=== PATIENT | female | born 1970 | race Caucasian/White ===

== ENCOUNTER 2024-03-01 05:21 | Observation (INO) ==
--- NOTE | 2024-01-28 11:17 | PAT Medication Instructions ---
Medication Instructions Date of Service January 28, 2024 Home Medications albuterol sulfate 90 mcg/actuation aerosol inhaler 1 puff inhalation Q6H PRN Shortness Of Breath hsaxfvn-obylacbgtiehw-fmsudeeo 250 mg-250 mg-65 mg tablet (Excedrin Migraine) 2 tab PO BID cetirizine 10 mg tablet (Zyrtec) 20 mg PO HS famotidine 20 mg tablet (Pepcid) 40 mg PO QPM bupropion HCl 150 mg tablet,12 hr sustained-release (Wellbutrin SR) 150 mg PO QAM fluticasone propionate 115 mcg-salmeterol 21 mcg/actuation HFA inhaler (Advair HFA) 1 puff inhalation Q12H PRN allergies allopurinol 300 mg tablet 300 mg PO QAM amlodipine 10 mg tablet 10 mg PO QAM guselkumab 100 mg/mL subcutaneous syringe (Tremfya) 100 mg subcut Q2M hydrochlorothiazide 25 mg tablet 25 mg PO QAM metformin 500 mg tablet 500 mg PO BID MEDICATION INSTRUCTIONS: Continue as directed fluticasone propionate 115 mcg-salmeterol 21 mcg/actuation HFA inhaler (Advair HFA) 1 puff inhalation Q12H PRN allergies albuterol sulfate 90 mcg/actuation aerosol inhaler 1 puff inhalation Q6H PRN Shortness Of Breath (use if needed; BRING TO HOSPITAL DAY OF SURGERY) ASK your surgeon for instructions apzoghp-taggypdgxticu-okuezfjq 250 mg-250 mg-65 mg tablet (Excedrin Migraine) 2 tab PO BID DO NOT take the morning of surgery metformin 500 mg tablet 500 mg PO BID hydrochlorothiazide 25 mg tablet 25 mg PO QAM Take morning of surgery With a small sip of water, OTHERWISE NOTHING TO EAT OR DRINK AFTER MIDNIGHT: allopurinol 300 mg tablet 300 mg PO QAM amlodipine 10 mg tablet 10 mg PO QAM bupropion HCl 150 mg tablet,12 hr sustained-release (Wellbutrin SR) 150 mg PO QAM Take evening before surgery cetirizine 10 mg tablet (Zyrtec) 20 mg PO HS famotidine 20 mg tablet (Pepcid) 40 mg PO QPM metformin 500 mg tablet 500 mg PO BID Other Notes CHECK WITH PRESCRIBER FOR INSTRUCTIONS: guselkumab 100 mg/mL subcutaneous syringe (Tremfya) 100 mg subcut Q2M If you have any questions please call us at [phone] or [phone] or [phone] or [phone]
--- NOTE | 2024-02-11 11:44 | Anesthesiology Consultation ---
Date of Service February 11, 2024 Assessment & Plan (1) Encounter for pre-operative examination: - check BSG am DOS. - Case discussed with Dr. Moore who advised malignant hyperthermia precautions will be needed for surgery. Surgeon's office and OR notified. Case discussed in detail with Dr. Curry who advised nothing additional is needed prior to surgery. - Outpatient joint assessment: Patient is currently scheduled for inpatient pathway. If re-evaluated and patient/surgeon requests outpatient pathway, patient is not candidate for outpatient joint program from anesthesia standpoint. Chart Review Chart Review: Acceptable Risk for Surgery and Patient seen in Pre Admission Testing Teaching & Discussion Pre-Anesthesia Teaching/Discussion Notes: Instructed NPO after midnight before surgery, except medications with 15 cc of water. Medication instructions provided according to the PAT guidelines. History Surgery Operation Date: 03/01/24 07:00 Proposed Procedures p Left Total Knee Arthroplasty - Antony Walton MD Height/Weight Height: 5 ft 6 in Weight: 177.4 kg Allergies Allergy/AdvReac Type Severity Reaction Status Date / Time Quinolones Allergy Severe angioedema Verified 02/11/24 15:28 Sulfa (Sulfonamide Allergy Severe anaphylaxis Verified 02/11/24 15:29 Antibiotics) ceftriaxone Allergy Intermediate hives Verified 02/11/24 15:29 cephalexin Allergy Intermediate Hives Verified 02/11/24 12:13 doxycycline Allergy Intermediate GI issues Verified 01/27/24 11:45 erythromycin base Allergy Intermediate GI issues Verified 01/27/24 11:45 - severe diarrhea moxifloxacin Allergy Intermediate Hives Verified 02/11/24 12:13 Penicillins Allergy Intermediate anaphylaxsis Verified 01/27/24 11:45 as infant; adult - rash Cephalosporins Allergy Mild Hives Verified 01/27/24 11:45 latex Allergy Mild Anaphylaxis Verified 01/27/24 11:45 metronidazole [From Flagyl] Allergy Mild Hives Verified 01/27/24 11:45 phenobarbital Allergy Unknown paradoxical Verified 01/27/24 11:45 effect as child montelukast AdvReac Intermediate Cough Verified 02/11/24 12:13 Medications Home Medications Medication Instructions Recorded Confirmed Last Taken albuterol sulfate 90 mcg/actuation 1 puff inhalation Q6H PRN 01/05/19 01/27/24 08/20/19 12:00 aerosol inhaler Shortness Of Breath vjgybjy-lalxdlcgymsoy-ofrabwou 250 2 tab PO BID 01/05/19 01/27/24 08/21/19 09:00 mg-250 mg-65 mg tablet (Excedrin Migraine) cetirizine 10 mg tablet (Zyrtec) 20 mg PO HS 01/05/19 01/27/24 08/21/19 09:00 famotidine 20 mg tablet (Pepcid) 40 mg PO QPM 01/05/19 01/27/24 08/21/19 09:00 fluticasone propionate 115 1 puff inhalation Q12H PRN 08/12/19 01/27/24 08/21/19 09:00 mcg-salmeterol 21 mcg/actuation allergies HFA inhaler (Advair HFA) allopurinol 300 mg tablet 300 mg PO QAM 01/27/24 01/27/24 Unknown amlodipine 10 mg tablet 10 mg PO QAM 01/27/24 01/27/24 Unknown guselkumab 100 mg/mL subcutaneous 100 mg subcut Q2M 01/27/24 01/27/24 Unknown syringe (Tremfya) hydrochlorothiazide 25 mg tablet 25 mg PO QAM 01/27/24 01/27/24 Unknown metformin 500 mg tablet 500 mg PO BID 01/27/24 01/27/24 Unknown Wheeled Walker #1 ea 02/11/24 02/11/24 Unknown bupropion HCl 150 mg 24 hr tablet, mg PO 02/11/24 Unknown extended release hydroxyzine HCl 25 mg tablet mg PRN Anxiety 02/11/24 Unknown Additional Notes: Recently prescribed Ozempic, not yet started per patient. She was instructed and it was written on provided medication instructions that Ozempic cannot be used 7 days before surgery. She verbalized understanding and agreement, denied questions or concerns. Hydroxyzine and tramadol prn can be continued as needed. She verbalized understanding and denied additional medications, questions or concerns. Past Medical History Medical History (Updated 02/11/24 @ 15:30 by Gail Willis PA-C) Aortic stenosis Noted per remote records, most recent Echo 06/2020 indicates "aortic stenosis is absent"- CAL 1.8cm2 Asthma controlled, stable per pt; last rescue inhaler use several months ago Depression Diabetes mellitus, type 2 NIDDM DJD (degenerative joint disease), lumbar Elevated uric acid in blood Emphysema lung per [facility] EMR History of kidney stones Hypertension controlled, stable per pt IBS (irritable bowel syndrome) Malignant hyperthermia paternal aunt, pt denies testing Migraines Psoriasis Pulmonary hypertension "Mild", follows with [facility] Pul Echo 06/2020: "Normal pulmonary pressures are suggested by 2-D echo findings" Radiculopathy Sciatica 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 Exercise / Class Metabolic Activity II 4-5 Yardwork/Stairs/Walk up hill (occasional shortness of breath in cold or hot weather; denies chest discomfort with 1 FOS) Past Family History Family History Aunt Family history of malignant hyperthermia pt is not 100% sure about this. states her paternal aunt on OR table because of anesthesia complictions. said "rings a call." - pt denies personal history of anesthesia complications Father Family history of diabetes mellitus Aunt Family history of diabetes mellitus Grandmother (Paternal) Family history of diabetes mellitus Grandfather (Maternal) History of rectal cancer Father History of colon polyps Past Surgical History Surgical History History of History of colonoscopy History of cystoscopy x2 History of endometrial ablation History of selective injection of anesthetic agent around lumbar nerve root LESI Hx of arthroscopy of left knee Hx of endoscopic sinus surgery Hx of esophagogastroduodenoscopy Hx of tonsillectomy Hx of tubal ligation Past Anesthesia History No Hx of Anesthesia Complications and Other (paternal aunt with malignant hyperthermia) History of PONV No Hx of PONV and No Hx of Motion Sickness Social History Smoking Status: Current every day smoker (-advised) tobacco type: cigarettes Smoking cigarettes per day: 1/2 PPD Do You Dip or Chew Tobacco: No Hx Alcohol Use: Yes Alcohol type: beer and wine alcohol intake frequency: holidays/special occasions only Hx Substance Use: No substance use type: does not use Review of Systems Patient denies chest pain, fever, chills, cough, wheezing, or palpitations. Physical Exam Vital Signs Vitals BP 136/80 P 82 TEMP 98.2 SP02 96% on RA RESP 17 Physical Patient resting comfortably in chair in no acute distress, alert and oriented, responding appropriately throughout visit Full cervical extension range of motion without pain TMD <3 finger breadths Mallampati Score 3 Dentition: one crown, denies chipped or loose teeth, caps, implants or bridges Lungs: normal respiratory effort. Good air movement, clear throughout to auscultation, no adventitious breath sounds Cardiac: regular rate and rhythm, no murmurs noted Carotid arteries: negative bruit bilat Lab Results Anesthesia Preop Results Results Anesthesia Widget: WBC 11.36 K/ul (4.8-10.8) H 02/11/24 Hgb 13.6 g/dl (12.0-16.0) 02/11/24 Hct 41.6 % (37.0-47.0) 02/11/24 Plt 400 K/uL (130-400) 02/11/24 Na 142 mmol/L (136-145) 02/11/24 K 3.9 mmol/L (3.5-5.1) 02/11/24 Cl 102 mmol/L (98-107) 02/11/24 CO2 31 mmol/L (21-32) 02/11/24 BUN 15 mg/dl (6-23) 02/11/24 Creat 0.95 mg/dl (0.6-1.2) 02/11/24 Glucose Level 136 mg/dl (70-99(Fasting)) H 02/11/24 PT 10.2 Seconds (9.0-12.0) 02/11/24 PTT 28 Seconds (21-31) 02/11/24 INR 0.9 (0.9-1.1) 02/11/24 HA1c 7.0 % (4.5-5.6) H 02/11/24 Blood Type A Positive 02/11/24 Antibody Screen NEGATIVE 02/11/24 Testing Laboratory Results Surgeon's office notified of elevated A1c. Electrocardiogram Date: 02/11/24 NSR, rate 75 bpm Chest X-Ray Date: 02/11/24 No acute cardiopulmonary findings. Echocardiogram Date: 07/12/20 EF 55-59% Normal LV wall motion Mild cLVH Limited examination quality Tricuspid regurgitation spectral Doppler examination is inadequate to calculate the RVSP, normal pulmonary pressures are suggested by 2D echo findings Grade I diastolic dysfunction
[~2024-03-01 05:21] MED LIST: ALLERGY Noted to ORDERED Medication SCH
[2024-03-01] MEDS: LR 500ML BOLUS, THEN 15ML/HR IV SCH (05:50)
[2024-03-01] MEDS: ACETAMINOPHEN 500 MG TAB PO SCH ×2 (06:05→13:17)
[2024-03-01] MEDS: LR 60ML/HR IV SCH (06:06)
[2024-03-01] MEDS: Scopolamine 1 MG TDSY TD SCH (06:06)
[2024-03-01] MEDS: METOCLOPRAMIDE HCL 10 MG TABLET PO SCH (06:06)
[2024-03-01] MEDS: FAMOTIDINE 20 MG TAB PO SCH (06:06)
[2024-03-01] MEDS: CeleBREX 200 MG CAP PO SCH (06:06)
[2024-03-01] MEDS ORDERED: BUPIVACAINE 0.5 % 5 MG/1 ML PF 10ML VIAL ONE (06:14)
[2024-03-01] MEDS ORDERED: ROPIVACAINE 0.5% 5 MG/ML 30 ML VIAL ONE (06:14)
[2024-03-01] MEDS ORDERED: EPINEPHrine INJ 1 MG/ML AMP ONE (06:14)
[2024-03-01] MEDS ORDERED: MIDAZOLAM HCL 1 MG/ML 2ML VIAL ONE (06:41)
[2024-03-01] MEDS ORDERED: Nursing to Pharmacy Communication SCH (06:45)
[2024-03-01] MEDS ORDERED: PROPOFOL IV EMULSION 10 MG/ML 20 ML VIAL IV ONE ×7 (06:46→09:08)
--- NOTE | 2024-03-01 06:53 | History & Physical Bridge Note ---
Date of Service March 01, 2024 History & Physical Bridge Note I have examined the patient, reviewed the History & Physical and in the interval since the performance of the History & Physical I have noted the following changes of clinical significance: no changes noted
[2024-03-01] MEDS: ceFAZolin 3000MG 3,000 MG/72.5 ML BAG IV SCH (07:04)
[2024-03-01] MEDS: ORTHO JOINT ANESTHETIC ONE (08:02)
[2024-03-01] MEDS: ROPIV 0.5% 246mg, Ketorolac 30mg, EPINEPHrine 0.5mg in NSS INFIL SCH (08:02)
[2024-03-01] MEDS ORDERED: PROMETHAZINE HCL 6.25 MG in SODIUM CHLORIDE 0.9% 50 ML IV PRN (08:04)
[2024-03-01] MEDS ORDERED: ONDANSETRON INJ 2 MG/ML 2 ML VIAL IV PRN ×2 (08:04→12:11)
[2024-03-01] MEDS ORDERED: ePHEDrine sulfate 50 MG/ML AMP IV PRN (08:04)
[2024-03-01] MEDS ORDERED: FLUMAZENIL 0.1 MG/1 ML 10 ML VIAL IV PRN (08:04)
[2024-03-01] MEDS ORDERED: NALOXONE HCL 0.4 MG/1 ML VIAL/CARP IV PRN ×2 (08:04→12:11)
[2024-03-01] MEDS ORDERED: ATROPINE SULFATE 0.1 MG/ML 10ML SYR IV PRN (08:04)
[2024-03-01] MEDS ORDERED: fentaNYL citrate PF 100 MCG/2 ML VIAL IV PRN (08:04)
[2024-03-01] MEDS: TRANEXAMIC ACID 1,000 MG **IV Intra-op IV SCH (08:24)
[2024-03-01] MEDS ORDERED: FLUTICASONE/VILANTEROL 200/25MCG 14 PUFFS/INHALER INH PRN (09:00)
[2024-03-01] MEDS: VANCOMYCIN HCL 1000MG/20ML VIAL ONE (09:05)
[2024-03-01] MEDS ORDERED: fentaNYL citrate PF 100 MCG/2 ML VIAL ONE (09:30)
--- OUTSIDE RECORDS SUMMARY | 2024-03-01 09:35 | External Medical Summary | Summary of Care ---
Author Name Unknown Organization [facility] Address [address] [place] [address] Phone [phone] Care Team Providers Care Microbiology Soil Scientist Name Role Phone Tho Hurley MD Primary Care Provider [phone] Reason for Visit * Reason Comments Lumbar Pain W/radiation Encounter Details Date Type Department Care Team (Late st Contact Info) Description 02/18/2024 9:00 AM EDT Telemedicine Interventional Pain Center, [facility] [address] [place] [address] Mrianda De La O PA-C [address] [place] [address] Lumbar radicular pain*; Chronic bilateral low back pain with bilateral sciatica Allergies Active Allergy Reactions Criticality Noted Date Comments Moxifloxacin Hcl In Nacl Rash 06/09/2012 Rash, Hives, itching localized to chest Cephalosporins Hypertension 11/01/2002 Hives just to keflex; has not had reaction to other cephalosporins Clindamycin Hives 09/04/2015 Doxycycline Abdominal pain 11/01/2002 Severe GI upset Erythromycin Diarrhea Metronidazole Other (Please comment) 09/04/2015 Sore throat, stiff neck, and headache Cephalexin Hives 12/25/2014 Age 18 Latex 03/07/2004 Anaphylactic to aerosolized latex gloves; also contact rash to latex Montelukast Cough 12/02/2022 Penicillins 11/01/2002 Had PCN allergy change done 03/07/2015--tolerated Amoxil 250mg in office -- 2 hours later reacted with rash which covered her-- Phenobarbital 11/01/2002 Hyperactive Quinolones Edema Other High 10/30/2014 Levaquin or Cipro - Swelling of hands, feet, face; heart pounding, tingling of face and extremities Ceftriaxone Hives 02/27/2021 Sulfa Antibiotics Abdominal pain,Hives 06/09/2012 Anaphylaxis; chest tightness documented as of this encounter (statuses as of 02/18/2024) Medications Medication Sig Dispensed Refills Start Date End Date Status Famotidine 20 MG Oral Tablet Take 2 Tablets by mouth in the morning. 0 Active ProAir HFA 108 (90 Base) MCG/ACT Inhalation Aerosol Solution Inhale 2 Puffs by mouth every 4 hours as needed for Wheezing. 36 g 2 09/25/2020 Active Excedrin Extra Strength 250-250-65 MG Oral Tablet (Aspirin-Acetaminophe n-Caffeine) Take 1 Tablet by mouth every 6 hours as needed for Pain, Moderate or Headache. 0 Active CPAP every night at bedtime . 0 Active Fluticasone-Salmetero l 250-50 MCG/ACT Inhalation Aerosol Powder Breath Activated (Advair Diskus)Indications:Mo derate persistent asthma with acute exacerbation Inhale 1 Puff by mouth in the morning and 1 Puff before bedtime. 60 Each 5 12/16/2022 Active MDdatacor Verio In Vitro Strip (Glucose Blood)Indications:Typ e 2 diabetes mellitus with hemoglobin A1c goal of less than 8.0% (HCC) Use up to 1 times a day E11.9. type 2 Diabetes Mellitus 100 Strip 11 01/23/2023 Active OneTouch Verio w/Device KitIndications:Type 2 diabetes mellitus with hemoglobin A1c goal of less than 8.0% (HCC) Use up to 1 times a day E11.9. type 2 Diabetes Mellitus 1 Kit 0 01/23/2023 Active amLODIPine Besylate 10 MG Oral Tablet (Norvasc)Indications: HTN, goal below 140/90 Take 1 Tablet by mouth in the morning. 90 Tablet 3 02/10/2023 Active hydroCHLOROthiazide 25 MG Oral Tablet (Hydrodiuril)Indicati ons:Hypertension goal BP (blood pressure) < 140/90 TAKE 1 TABLET BY MOUTH ONCE DAILY IN THE MORNING 90 Tablet 2 05/19/2023 Active traMADol HCl 50 MG Oral Tablet (Ultram) Take 1 Tablet by mouth every 6 hours as needed for Pain, Severe. 20 Tablet 0 08/07/2023 Active hydrOXYzine HCl 25 MG Oral TabletIndications:Anx iety Take 1 Tablet by mouth every 6 hours as needed for Anxiety. 40 Tablet 2 09/23/2023 Active Cetirizine HCl 10 MG Oral Capsule Take 2 Capsules by mouth every evening. 0 Active Allopurinol 300 MG Oral Tablet (Zyloprim)Indications :Hyperuricemia TAKE 1 TABLET BY MOUTH IN THE MORNING 30 Tablet 5 12/07/2023 Active buPROPion HCl ER (SR) 150 MG Oral Tablet Extended Release 12 Hour (Wellbutrin SR)Indications:Anxiet y and depression Take 1 Tablet by mouth in the morning and 1 Tablet before bedtime. 60 Tablet 5 01/04/2024 Active Ozempic (0.25 or 0.5 MG/DOSE) 2 MG/3ML Solution Pen-injector (Semaglutide(0.25 or 0.5MG/DOS))Indication s:Type 2 diabetes mellitus with hemoglobin A1c goal of less than 7.0% (HCC) Inject 0.25mg under the skin once weekly for 4 weeks then increase to 0.5mg under the skin once weekly thereafter 3 mL 1 01/06/2024 Active methylPREDNISolone 4 MG Oral Tablet Therapy Pack (Medrol Dosepack)Indications: Primary osteoarthritis of both knees follow package directions 21 Tablet 0 01/12/2024 Active Tremfya 100 MG/ML Subcutaneous Solution Prefilled Syringe (Guselkumab) Inject 100 mg under the skin every 8 weeks. 1 mL 2 01/18/2024 Active metFORMIN HCl 500 MG Oral Tablet (Glucophage)Indicatio ns:Type 2 diabetes mellitus with hemoglobin A1c goal of less than 8.0% (HCC) TAKE 1 TABLET BY MOUTH TWICE DAILY WITH MORNING MEAL AND WITH EVENING MEALS 180 Tablet 3 01/23/2024 Active documented as of this encounter (statuses as of 02/18/2024) Active Problems Problem Noted Date Diagnosed Date Type 2 diabetes mellitus with hyperglycemia 08/23 Diabetes mellitus without complication 3 COPD, group C, by GOLD 2017 classification 03/02 Overview: Per COPD GOLD Classification Morbid obesity due to excess calories 11/26/2021 Pulmonary nodules 12/11/2020 Body mass index (BMI) of 60.0 to 69.9 in adult 1 Overview: Per Obesity protocol - Per Obesity protocol Ground glass opacity present on imaging of lung 05/30/2019 Centrilobular emphysema 04/04/2019 VAL on CPAP 04/04/2019 Tobacco use 04/04/2019 History of abnormal cervical Pap smear 8 Nonspecific urethritis 02/16/2018 Plaque psoriasis 11/20/2015 Hamartoma 04/26/2015 Splenic mass 03/06/2015 Multiple drug allergies 12/25/2014 Latex allergy 12/25/2014 Allergic rhinitis 12/25/2014 Vitamin D deficiency 12/11/2014 Migraine 06/09/2012 Sciatica, right side 10/17/2009 Osteoarthritis 12/24/1998 documented as of this encounter (statuses as of 02/18/2024) Resolved Problems Problem Noted Date Diagnosed Date Resolved Date Acute bronchitis, complicated 11/25/2022 09/01/2023 Acute bronchitis due to Rhinovirus 11/25/2022 09/01/2023 Lactic acidosis 11/25/2022 09/01/2023 Leukocytosis 11/24/2022 09/01/2023 Hyperglycemia 11/24/2022 09/01/2023 Positive D dimer 11/24/2022 09/01/2023 COPD, group A, by GOLD 2017 classification 08/05/2021 03/05/2023 Overview: Per COPD GOLD Classification COPD, group D, by GOLD 2017 classification 10/03/2019 05/02/2021 Overview: Per COPD GOLD Classification Body mass index (BMI) greate r than or equal to 70 in adult 08/01/2019 09/07/2019 Overview: Per Obesity protocol COPD, group A, by GOLD 2017 classification 05/30/2019 10/07/2019 Overview: Per COPD GOLD Classification Pulmonary hypertension 04/04/201903/27 Occupational exposure in workplace 04/04/2019 04/18/2021 Morbid obesity 04/04/2019 05/04/2019 Pulmonary nodule 04/04/2019 09/01/2023 Acute exacerbation of modera te persistent extrinsic asthma 10/11/2018 11/26/2022 Prediabetes 08/30/2018 07/09/2023 Overview: Per Prediabetes protocol #1 Mild intermittent asthma with exacerbation 08/19/2018 04/14/2019 Quit smoking 08/19/2018 04/14/2019 Advanced directives, counseling/discussion 04/16/2018 10/07/2019 Encounter for gynecological examination without abnormal finding 02/16/2018 10/07/2019 Screening for venereal disease 02/16/2018 10/07/2019 Morbid obesity with BMI of 60.0-69.9, adult 02/16/2018 08/05/2019 Overview: Per Obesity protocol Body mass index (BMI) of 60. 0 to 69.9 in adult 08/24/2017 03/05/2018 Overview: Per Obesity protocol #1 Smoker 05/22/2017 08/19/2018 Psoriasis of scalp 01/04/2015 5 History of penicillin allergy 12/25/2014 10/07/2019 Asthma, mild persistent 10/30/201407/25 documented as of this encounter (statuses as of 02/18/2024) Immunizations Name Administration Dates Next Due COVID-19 mRNA, LNP-s, No Pre serve, 2-Dose Series (Moderna) 01/16/2021,12/19/2020 COVID-19, mRNA, LNP-s, PF, B ooster, 100mcg/0.5mg (Moderna) 08/06/2022,04/10/2022,10/03/2021 Pneumococcal Conjugate Vacc, 13 Valent (Prevnar) 12/23/2018 Pneumococcal Polysaccharide PPV23 (Pneumovax) 11/23/2010 Seasonal Influenza, PF, 6 M & above, IM , (FluLaval or Fluzone) 08/05/2023,08/06/2022,07/25/2021,09/25,10/13/2019,12/23/2018 Seasonal Influenza, Quadriva lent, No Preserve, Mdck 08/03/2017 Seasonal Influenza, Split, I IV3, With Preserve, Inj 08/08/2015,10/30/2014 TDAP (age 10 and older)(Boostrix) 10/17/2015 documented as of this encounter Social History Tobacco Use Types Packs/Day Years Used Date Smoking Tobacco: Every Day Cigarettes 0.5 39 Smokeless Tobacco: Never Alcohol Use Standard Drinks/Week Comments Not Currently 0 (1 standard drink = 0.6 oz pur e alcohol) Rare PHQ-2 Answer Date Recorded PHQ-2 Score 1 06/23/2019 Hunger Vital Sign Answer Date Recorded Within the past 12 months, y ou worried that your food would run out before you got the money to buy more. Never true 06/15/20 23 Within the past 12 months, t he food you bought just didn't last and you didn't have money to get more. Never true 06/15/2023 Sex and Gender Information Value Date Recorded Sex Assigned at Female 03/10/2019 7:28 PM EDT Gender Identity Female 03/10/2019 7:28 PM EDT Sexual Orientation Straight 07/22/2021 1: 17 PM EDT Job Start Date Occupation Industry Not on file Not on file Not on file documented as of this encounter Functional Status Functional Status Response Date of Assess ment Are you deaf or do you have serious difficulty h earing? No 11/24/2022 Are you blind or do you have serious difficulty seeing, even when wearing glasses? No 11/24/2022 Do you have serious difficul ty walking or climbing stairs? (5 years old or older) Yes 11/24/2022 Do you have difficulty dress ing or bathing? (5 years old or older) No 11/24/2022 Because of a physical, menta l, or emotional condition, do you have difficulty doing errands alone such as visiting a doctor s office or shopping? (15 years old or older) No 11/24/19 Cognitive Status Response Date of Assessm ent Because of a physical, menta l, or emotional condition, do you have serious difficulty concentrating, remembering, or making decisions? (5 years old or older) No 11/24/2022 documented as of this encounter Progress Notes * Miranda De La O PA-C - 02/18/2024 9:03 AM EDT Name: Palak Horan Date: 02/18/2024 Patient location: HOME. I was in a hospital or clinic location. After connecting through televCytoVivao,patient was verified with two unique identifiers. Patient (or authorized legal business office representative) was then informed that this was a Telemedicine visit and being conducted confidentially over secure lines. Methods to assure confidentiality were taken. Patient acknowledged consent and understanding of pr ivacy and security of the Telemedicine visit. The patient agreed to participate. Video start: 858 Video end: 913 HPI: Palak Horan is a 53 year old female known to the Pain Management clinic presents for followup after left interlaminar LOAN L5/S1 on 12/28/23. Admits mild pain reduction lasting less than on week. Increased R buttock, hip spasms for few days after procedure. No change in LE numbness or weakness. Pain has returned to baseline. Locates pain low back that radiates to lateral hips and thigh. Associated paresthesia B LE, lateralcalf, foot, some into R great toe -- baseline. Baseline LE weakness. Denies bowel/bladder dysfunction. Aggravated by prolonged standing and sitting. Alleviated temporarily with changing position and stretching. Using tramadol, excedrin, motrin for pain relief. PRN excedrin for migraine. Past medications used for pain: gabapentin, oral steroid, cymbalta (D/C due to SE brain zaps,) mobic. Hx of injections with Dr. Aleman, noting subsequent injections were not as helpful. Established with weight management, has lost more than pounds in the past year. +++ extensive allergy list. + DM, most recent HbA1c 6.29 Dec 2023 Of note, upcoming LEFT TKA with Dr. Walton, planning for R TKA later in the year. History: Past Medical History: Diagnosis Date Allergic rhinitis Asthma, mild persistent 10/30/2014 COPD (chronic obstructive pulmonary disease) ([facility]) History of penicillin allergy 12/25/2014 Kidney stone last one in 2020? 5-6 of them. Knee pain, bilateral Latex allergy 12/25/2014 Migraine Morbid obesity (HCC) Pulmonary hypertension (HCC) Sleep apnea CPAP Spinal stenosis Status asthmaticus Tobacco abuse Vitamin D deficiency 12/11/2014 Past Surgical History: Procedure Laterality Date ABLATION UTERINE FIBROIDS, US GUIDE, RADIOFREQUENCY DELIVERY Delivery Only INJECT DX/THER SUBSTANCE INTERLAMINAR LUMBAR/SACRAL W IMAGE GUIDE 12/28/2023 INJECTION SPINE LUMBAR OR SACRAL performed by Torey Berg DO at OR [facility] INTRANASAL BIOPSY 04/2010 Nasal polypectomy KNEE ARTHROSCOPY/ARTHROPLASTY Left LIGATE/CUT OVIDUCT(S) Tubal Ligation,Non Laparoscopic REMOVAL OF TONSILS, AGE 12+ 12/2011 Tonsils Removal,10+ Y/O SINUS SURGERY PROCEDURE NEC 04/2010 Sinus Surgery Proc Unlisted/ Dr. Huddleston Current Outpatient Medications Medication Sig Dispense Refill Famotidine 20 MG Oral Tablet Take 2 Tablets by mouth in the morning. ProAir HFA 108 (90 Base) MCG/ACT Inhalation Aerosol Solution Inhale 2 Puffs by mouth every 4 hours as needed for Wheezing. 36 g 2 Excedrin Extra Strength 250-250-65 MG Oral Tablet (Hlheoxz-Yolubrdyhozni-Zouvidss) Take 1 Tablet bymouth every 6 hours as needed for Pain, Moderate or Headache. CPAP every night at bedtime . Fluticasone-Salmeterol 250-50 MCG/ACT Inhalation Aerosol Powder Breath Activated (Advair Diskus) Inhale 1 Puff by mouth in the morning and 1 Puff before bedtime. 60 Each 5 OneTouch Verio In Vitro Strip (Glucose Blood) Use up to 1 times a day E11.9. type 2 Diabetes Mellitus 100 Strip 11 OneTouch Verio w/Device Kit Use up to 1 times a day E11.9. type 2 Diabetes Mellitus 1 Kit 0 amLODIPine Besylate 10 MG Oral Tablet (Norvasc) Take 1 Tablet by mouth in the morning. 90 Tablet 3 hydroCHLOROthiazide 25 MG Oral Tablet (Hydrodiuril) TAKE 1 TABLET BY MOUTH ONCE DAILY IN THE MORNING 90 Tablet 2 traMADol HCl 50 MG Oral Tablet (Ultram) Take 1 Tablet by mouth every 6 hours as needed for Pain, Severe. 20 Tablet 0 hydrOXYzine HCl 25 MG Oral Tablet Take 1 Tablet by mouth every 6 hours as needed for Anxiety. 40 Tablet 2 Cetirizine HCl 10 MG Oral Capsule Take 2 Capsules by mouth every evening. Allopurinol 300 MG Oral Tablet (Zyloprim) TAKE 1 TABLET BY MOUTH IN THE MORNING 30 Tablet 5 buPROPion HCl ER (SR) 150 MG Oral Tablet Extended Release 12 Hour (Wellbutrin SR) Take 1 Tablet by mouth in the morning and 1 Tablet before bedtime. 60 Tablet 5 Ozempic (0.25 or 0.5 MG/DOSE) 2 MG/3ML Solution Pen-injector (Semaglutide(0.25 or 0.5MG/DOS)) Inject 0.25mg under the skin once weekly for 4 weeks then increase to 0.5mg under the skin once weekly thereafter 3 mL 1 methylPREDNISolone 4 MG Oral Tablet Therapy Pack (Medrol Dosepack) follow package directions 21 Tablet 0 Tremfya 100 MG/ML Subcutaneous Solution Prefilled Syringe (Guselkumab) Inject 100 mg under the skinevery 8 weeks. 1 mL 2 metFORMIN HCl 500 MG Oral Tablet (Glucophage) TAKE 1 TABLET BY MOUTH TWICE DAILY WITH MORNING MEAL AND WITH EVENING MEALS 180 Tablet 3 No current facility-administered medications for this visit. Review of patient's allergies indicates: Allergen Reactions Quinolones Edema Other Levaquin or Cipro - Swelling of hands, feet, face; heart pounding, tingling of face and extremities Avelox [Moxifloxacin Hcl In Nacl] Rash Rash, Hives, itching localized to chest Cephalosporins Hypertension Hives just to keflex; has not had reaction to other cephalosporins Clindamycin Hives Doxycycline Abdominal pain Severe GI upset Erythromycin Diarrhea Flagyl [Metronidazole] Other (Please comment) Sore throat, stiff neck, and headache Keflex [Cephalexin] Hives Age 18 Latex Anaphylactic to aerosolized latex gloves; also contact rash to latex Montelukast Cough Penicillins Had PCN allergy change done 03/07/2015--tolerated Amoxil 250mg in office -- 2 hours later reacted with rash which covered her-- Phenobarbital Hyperactive Rocephin [Ceftriaxone] Hives Sulfa Antibiotics Abdominal pain and Hives Anaphylaxis; chest tightness PHYSICAL EXAM: There were no vitals taken for this visit. GENERAL: WD/WN female who is awake and alert. Does not appear to be in acute distress. MENTAL STATUS: Oriented x 3. Pleasant and cooperative with normal affect. ASSESSMENT: Lumbar radicular pain Chronic low back pain RECOMMENDATION: No lasting relief with lumbar LOAN. No change in LE weakness, paresthesia. Do not recommend repeat LOAN. Consider medication management, MTDM??? Should continue care with nutrition/reinaldo management. Declines returning to clinic at this time, has upcoming LEFT TKA with Dr. Walton - prefers to focus onthat recovery. Follow up as needed. Total video duration 15 minutes. Miranda De La O PA-C 02/18/2024 documented in this encounter Plan of Treatment Upcoming Encounters Date Type Department Care Team (Late st Contact Info) Description 02/24/2024 11:00 AM EDT Office Visit Gynecology and Obstetrics, [place] [address] [facility] [place] [address] [place], [address] [facility] [place] [address] 04/12/2024 2:00 PM EDT Office Visit Nutrition & Weight Management, [facility] [address] [place] [address] Cindy Lindsey PA-C [address] [place] [address] 07/04/2024 11:40 AM EDT Office Visit Family Practice [facility] [address] [place] [phone] Tho Hurley MD [address] [place] [address] 08/10/2024 7:40 AM EDT Office Visit Dermatology [address] [phone] Miah Maceil PA-C [address] [place] [address] 11/04/2024 10:00 AM EST Telemedicine Sleep Disorders Ctr [facility] [address] [place] [phone] Estefania Nix, [address] [place] [address] Scheduled Procedures Name Priority Associated Diagnoses Date/Ti me COLONOSCOPY FLEXIBLE PROXIMA L DIAGNOSTIC Recall Special screening for malignant neoplasm Health Maintenance Due Date Last Done Comments Hepatitis B (1 of 3 - 19+ 3-dose series) 1987 Cologuard 2013 Fecal Occult Blood Test 2013 Sigmoidoscopy 2013 Zoster Vaccines (1 of 2) 2018 Depression Screening 06/23/2020 06/23/2019 DISCUSS TOBACCO CESSATION (REFER TO SMARTSET #3291) 05/02/2022 05/02/2021 COVID-19 Vaccine ( season) 2023 08/06/2022, 04/10/2022, 10/03/2021, Additional history exists Mammogram 03/23/2024 03/23/2023, 11/2022, 03/20/2022, Additional history exists HbA1c 07/04/2024 01/04/2024, 07/24, 01/02/2023, Additional history exists Albumin/Creatinine Ratio 09/23/2024 09/23/2023 Diabetic Foot Exam 01/04/2025 01/04/2024 GFR 01/04/2025 01/04/2024, 07/24, 01/02/2023, Additional history exists O2 ASSESSMENT COMPLETED IN PAST YEAR FOR COPD 01/04/2025 01/04/2024 Diabetic Eye Exam 01/15/2025 01/15/2024 DTaP,Tdap,and Td Vaccines (2 - Td or Tdap) 10/17/2025 10/17/2015 Pap Smear 01/01/2027 01/01/2024, 01/22, 01/10/2014 Cervical Cancer Screening 01/01/2029 HPV/Co-Test 01/01/2029 01/01/2024 Lipid Panel 01/04/2029 01/04/2024, 12/24, 08/19/2018, Additional history exists Colonoscopy 08/22/2029 08/22/2019 Colorectal Cancer Screening 08/22/2029 Pneumococcal Vaccine: Pediatrics (0 to 5 Years) and At-Risk Patients (6 to 64 Years) (3 of 3 - PPSV23 or PCV20) 2033 12/23/2018, 11/23/2010 Alpha-1 Antitrypsin Completed 05/13/2021 Influenza Vaccine (FLU shot) Completed , 08/06/2022, 08/06/2022, Additional history exists GARDASIL-HPV IMMUNIZATION SERIES Aged Out No longer eligible based on patient's age to complete this topic MENINGOCOCCAL (MENACTRA/MENVEO) Aged Out No longer eligible based on patient's age to complete this topic documented as of this encounter Medical Devices Not on filedocumented as of this encounter Visit Diagnoses Diagnosis Lumbar radicular pain- Primary Thoracic or lumbosacral neuritis or radiculitis, unspecified Chronic bilateral low back pain with bilateral sciatica documented in this encounter Advance Directives Latest Code Status on File Code Status Date Activated Date Inactivated Comments Full Code 11/24/2022 10:23 PM 11/26/2022 6:37 PM This o rder reflects the patients wishes and were consensually agreed upon. Question Answer Comments Discussion of Advance Directives occurred with: Patient Does the patient have a Living Will? No Does the patient have Health Care Power of Paint Tinter? No Care Teams Microbiology Soil Scientist Relationship Specialty Start Date End Date Tho Hurley MD [address] [place] [phone] PCP - General Family Medicine 10/10/14 documented as of this encounter
--- OUTSIDE RECORDS SUMMARY | 2024-03-01 09:35 | External Medical Summary | Summary of Care ---
Author Name Unknown Organization [facility] [address] [facility] [address] Phone [phone] Care Team Providers Care Printed Forms Proofreader Name Role Phone Tho Hurley MD Primary Care Provider [phone] Reason for Visit * Reason Onset Date Comments Advice 02/25/2024 Encounter Details Date Type Department Care Team (Late st Contact Info) Description 02/25/2024 Telephone Gynecology and Obstetrics, [place] [address] [facility] [place] [phone] Brain H[place] DO [address] [place] [address] Advice Allergies Active Allergy Reactions Criticality Noted Date [...] as of this encounter (statuses as of 02/25/2024) Medications Medication Sig Dispensed Refills Start Date [...] before bedtime. 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 Never true 06/15/20 Within the past 12 months, t he [...] No 11/24/2022 documented as of this encounter Miscellaneous Notes * Telephone Encounter - Brain Harg[place] DO - 02/25/2024 2:34 PM EDT Call Palak that the Endocervical curetting showed no cancer or precancer. documented in this encounter Plan of Treatment Upcoming Encounters Date Type Department Care Team ([facility] st Contact Info) Description 04/12/2024 2:00 PM EDT Office Visit Nutrition & Weight Management, [facility] [address] [place] [phone] iCndy Lindsey PA-C [address] [place] [address] 07/04/2024 11:40 AM EDT Office Visit Family Practice [facility] [address] [place] [phone] Tho Hurley MD [address] [place] [address] 08/10/2024 7:40 AM EDT Office Visit Dermatology [address] [phone] Miah Maciel PA-C [address] [place] [address] 11/04/2024 10:00 AM EST Telemedicine Sleep Disorders Ctr [facility] [address] [place] [phone] Estefania Nix DO [address] [place] [address] Scheduled Procedures Name Priority Associated Diagnoses Date/Ti [...] 10/03/2021, Additional history exists Mammogram 03/23/2024 03/23/2023, 0511/2022, 03/20/2022, Additional history exists HbA1c 07/04/2024 01/04/2024, [...] Not on filedocumented as of this encounter Advance Directives Latest Code Status on File Code Status Date Activated Date Inactivated Comments Full Code 11/24/2022 10:23 PM 11/26/2022 6:37 PM This o rder reflects the patients wishes and were consensually agreed upon. Question Answer Comments Discussion of Advance Directives occurred with: Patient Does the patient have a Living Will? No Does the patient have Health Care Power of Artist Relationship Manager? No Care Teams Printed Forms Proofreader Relationship Specialty Start Date End Date Tho Hurley MD [address] [place] [address] PCP - General Family Medicine 10/10/14 documented as of this encounter
--- OUTSIDE RECORDS SUMMARY | 2024-03-01 09:35 | External Medical Summary | Summary of Care ---
Author Name Unknown Organization [facility] Address [address] [place] [address] Phone [phone] Care Team Providers Care Traffic Inspector Name Role Phone Tho Mcgee MD Primary Care Provider [phone] Reason for Visit * Reason Comments Colposcopy Encounter Details Date Type Department Care Team (Latest Contact Info) Description 02/24/2024 11:00 AM EDT Office Visit Gynecology and Obstetrics, [place] [address] [facility] [place] [address] Brain Hargrove DO [address] [place] [address] Low grade squamous intraepithelial lesion (LGSIL) on cervical Pap smear* Allergies Active Allergy Reactions Criticality Noted Date [...] as of this encounter (statuses as of 02/24/2024) Medications Medication Sig Dispensed Refills Start Date [...] before bedtime. 60 Each 5 12/16/2022 Active Onfan Verio In Vitro Strip (Glucose Blood)Indications:Typ e 2 diabetes mellitus with hemoglobin A1c goal of less than 8.0% (HCC) Use up to 1 times a day E11.9. type 2 Diabetes Mellitus 100 Strip 11 01/23/2023 Active TelunjukTouch Verio w/Device KitIndications:Type 2 diabetes mellitus with [...] as of this encounter (statuses as of 02/24/2024) Active Problems Problem Noted Date Diagnosed Date [...] as of this encounter (statuses as of 02/24/2024) Resolved Problems Problem Noted Date Diagnosed Date [...] as of this encounter (statuses as of 02/24/2024) Immunizations Name Administration Dates Next Due COVID-19 [...] on file documented as of this encounter Last Filed Vital Signs Vital Sign Reading Time Taken Comments Blood Pressure 140/68 02/24/2024 10:57 AM EDT Pulse - - Temperature - - Respiratory Rate - - Oxygen Saturation - - Inhaled Oxygen Concentration - - Weight 179.5 kg (395 lb 11.2 oz) 2023 10:57 AM EDT Height - - Body Mass Index 63.87 01/06/2024 2:49 PM EST documented in this encounter Functional Status Functional Status Response [...] (15 years old or older) No 11/24/19 23 Cognitive Status Response Date of Assessm ent Because of a physical, menta l, or emotional condition, do you have serious difficulty concentrating, remembering, or making decisions? (5 years old or older) No 11/24/2022 documented as of this encounter Progress Notes * Brain Hargrove, DO - 02/24/2024 11:18 AM EDT SUBJECTIVE: Palak Horan is a 53 year old female. Chief Complaint Patient presents with Colposcopy HPI: 53 yowf Grav 1 Para 1001 - 1990. Get a ammmogram in [facility] 2023 . They do a breast exam at [facility] yearly . 01/01/2024 al Diagnosis A. Cervix, SurePath Pap test: Adequacy: Satisfactory for evaluation; transformation zone present. Interpretation: Epithelial cell abnormality: Low-grade squamous intraepithelial lesion (LSIL, [place] [facility]). AUTOMATED REVIEW: Focal Point computerized screening device (quintile 2, review). NOTE: Positive HPV results noted below. Recommend clinical correlation and correlation with curr Patient Active Problem List Diagnosis Code Migraine G43.909 Vitamin D deficiency E55.9 Multiple drug allergies Z88.9 Latex allergy Z91.040 Allergic rhinitis J30.9 Splenic mass R16.1 Hamartoma ([facility]) Q85.9 Plaque psoriasis L40.0 Nonspecific urethritis N34.1 History of abnormal cervical Pap smear Z87.42 Centrilobular emphysema ([facility]) J43.2 VAL on CPAP G47.33 Tobacco use Z72.0 Ground glass opacity present on imaging of lung R91.8 Body mass index (BMI) of 60.0 to 69.9 in adult ([facility]) Z68.44 Pulmonary nodules R91.8 Morbid obesity due to excess calories ([facility]) E66.01 Osteoarthritis M19.90 Sciatica, right side M54.31 COPD, group C, by GOLD 2017 classification ([facility]) J44.9 Diabetes mellitus without complication ([facility]) E11.9 Type 2 diabetes mellitus with hyperglycemia ([facility]) E11.65 Current Outpatient Medications Medication Sig Dispense Refill Famotidine 20 MG Oral Tablet Take 2 Tablets by mouth in the morning. ProAir HFA 108 (90 Base) MCG/ACT Inhalation Aerosol Solution Inhale 2 Puffs by mouth every 4 hours as needed for Wheezing. 36 g 2 Excedrin Extra Strength 250-250-65 MG Oral Tablet (Ymxbvqj-Ocwourpdetrxw-Cnuxlfzx) Take 1 Tablet bymouth every 6 hours as needed for Pain, Moderate or Headache. CPAP every night at bedtime . Fluticasone-Salmeterol 250-50 MCG/ACT Inhalation Aerosol Powder Breath Activated (Advair Diskus) Inhale 1 Puff by mouth in the morning and 1 Puff before bedtime. 60 Each 5 TelunjukTouch Verio In Vitro Strip (Glucose Blood) Use [...] No current facility-administered medications for this visit. The patient's medication list was reviewed and updated as needed. Past Medical History: Diagnosis Date Allergic rhinitis Asthma, mild persistent 10/30/2014 COPD (chronic obstructive pulmonary disease) (HCC) History of penicillin allergy 12/25/2014 Kidney stone [...] performed by Torey Berg DO at OR [facility] INTRANASAL BIOPSY 04/2010 Nasal polypectomy KNEE ARTHROSCOPY/ARTHROPLASTY Left LIGATE/CUT OVIDUCT(S) Tubal Ligation,Non Laparoscopic REMOVAL OF TONSILS, AGE 12+ 12/2011 Tonsils Removal,12+ Y/O SINUS SURGERY PROCEDURE NEC 04/2010 Sinus Surgery Proc Unlisted/ Dr. Huddleston Review of patient's allergies indicates: Allergen Reactions [...] Abdominal pain and Hives Anaphylaxis; chest tightness REVIEW OF SYSTEMS: General: No change in weight, No weakness, No fatigue, and No fevers, sweats, or chills Neck: No complaint of lumps in neck, No swollen glands, No recent swelling in thyroid area, and No significant pain in neck Breast: No new breast lumps, No severe breast pain, No nipple discharge, No recent change in shape/contor, and Patient does perform monthly self breast exam Respiratory: No cough, sputum, or hemoptysis, No wheezing, No shortness of breath, and No recent change in breathing Cardiac: No chest pain, No shortness of breath, No dyspnea on exertion, No orthopnea, No paroxysmalnocturnal dyspnea, No edema, No palpitations, and No syncope Gastrointestinal: No dysphagia, No significant heartburn, No significant change in appetite, No nausea, vomiting, diarrhea, or constipation, No hematemesis, No blood in stools or black tarry stools, No abdominal bloating or early satiety, and No abdominal pain Extremities: No pain, redness or swelling on the joints Psychiatric: No depression, No anxiety, and No psychosis Allergy: No allergic triggers, No sneeze, nasal itch, ocular symptoms of allergy, No reactions to insect sting, No chemical sensitivities, and No Food Allergies OBJECTIVE: BP 140/68 | Wt (!) 179.5 kg (395 lb 11.2 oz) | BMI 63.87 kg/m | BSA 2.89 m PHYSICAL EXAM: General: alert, healthy, and no distress Abdomen: abdomen soft, non-tender, normal bowel sounds, and no masses or organomegaly Back: back symmetric, no curvature, no costovertebral angle tenderness, range of motion is normal Extremities: less than 2 second capillary refill, no joint deformities, effusion, or inflammation Pelvic Exam: External genitalia and vagina anatomy within normal limits, No significant vulvar lesions, No significant vaginal discharge, Cervix normal in appearance without lesions or purulent discharge, Uterus is normal size, shape, and consistency, Adnexea normal bilaterally. No abnormal pelvic masses Skin: skin color, texture, turgor are normal, no rashes or significant lesions PLAN AND ASSESSMENT: LGSIL . Need a colp . Last abnormal pap in 2018 and colp and did biopsy . Nothing since then . [place] after 5% acetic acid with SCJ seen . ECC done . No vulvar , vaginal or cervical lesion s. ECC doen . If all negatiev , do an key in 1 year . CC visit to: PCP: THO MCGEE [address] [place] [address] Brain Hargrove DO documented in this encounter Nursing Notes * Audrey Hester LPN - 02/24/2024 11:02 AM EDT Pt presents for a colposcopy. No complaints or concerns, documented in this encounter Plan of Treatment Upcoming Encounters Date Type Department Care Team (Late st Contact Info) Description 04/12/2024 2:00 PM EDT Office Visit Nutrition & Weight Management, [facility] [address] [place] [address] Cindy Lindsey PA-C [address] [place] [address] 07/04/2024 11:40 AM EDT Office Visit Family Practice [facility] [address] [place] [phone] Tho Mcgee MD [address] [place] [address] 08/10/2024 7:40 AM EDT Office Visit Dermatology [address] [phone] Miah Maciel PA-C [address] [place] [address] 11/04/2024 10:00 AM EST Telemedicine Sleep Disorders Ctr [facility] [address] [place] [phone] Estefania Nix DO [address] [place] [id number] Scheduled Orders Name Type Priority Associated Diagnoses Orde r Schedule SCRAPING OF CERVICAL CANAL LINING Procedures Routine Low grade squamous intraepithelial lesion (LGSIL) on cervical Pap smear Ordered: 02/24/2024 SURGICAL PATHOLOGY Pathology Routine Low grade squamous intraepithelial lesion (LGSIL) on cervical Pap smear Ordered: 02/24/2024 Scheduled Procedures Name Priority Associated Diagnoses Date/Ti [...] Not on filedocumented as of this encounter Procedures Procedure Name Priority Date/Time Associated Diagnosis Comments URINE SCREEN, POINT OF CARE (ENTER/EDIT) Routine 02/24/2024 11:47 AM EDT Low grade squamous intraepithelial lesion (LGSIL) on cervical Pap smear COLPOSCOPY VAGINA & OR CERVIX Routine 02/24/2024 11:41 AM EDT Low grade squamous intraepithelial lesion (LGSIL) on cervical Pap smear documented in this encounter Results * URINE SCREEN, POINT OF CARE (ENTER/EDIT) (02/24/2024 11:47 AM EDT) hCG Beta, Urine Negative Negative Procedural Control Valid? Yes Lot Number [id number] Expiration Date 12/20/2024 Urine 02/24/2024 11:4 7 AM EDT Brain Hargrove DO LAB POINT OF CA RE TEST ENTER/EDIT ORDERABLES * COLPOSCOPY VAGINA & OR CERVIX (02/24/2024 11:41 AM EDT) 02/24/2024 11:4 1 AM EDT Brain Driver DO - 02/24/2024 11:41 AM EDT [place] after 5 % acetic acid with no vulva , vaginal or cervical lesions . ECC was done . Brain Alexandro Delvin DO SURGERY documented in this encounter Visit Diagnoses Diagnosis Low grade squamous intraepithelial lesion (LGSIL) on cervical Pap smear- Primary Papanicolaou smear of cervix with low grade squamous intraepithelial lesion (LGSIL) documented in this encounter Advance Directives Latest [...] the patient have Health Care Power of State Historical Society Director? No Care Teams Traffic Inspector Relationship Specialty Start Date End Date Tho Mcgee MD [address] [place] [address] PCP - General Family Medicine 10/10/14 documented as of this encounter"
--- OUTSIDE RECORDS SUMMARY | 2024-03-01 09:35 | External Medical Summary | Summary of Care ---
Author Name Unknown Organization [facility] [address] [facility] [address] Phone [phone] Care Team Providers Care Charge Weigher Name Role Phone Tho Hurley MD Primary Care Provider [phone] Reason for Visit * Reason Onset Date Comments Advice 02/25/2024 Encounter Details Date Type Department Care Team (Late st Contact Info) Description 02/25/2024 Telephone Gynecology and Obstetrics, [place] [address] [facility] [place] [id number] Brain Hargrove DO [address] [place] [address] Advice Allergies Active Allergy Reactions [...] as of this encounter (statuses as of 02/26/2024) Medications Medication Sig Dispensed Refills Start Date [...] before bedtime. 60 Each 5 12/16/2022 Active CostumeWorksTouch Verio In Vitro Strip (Glucose Blood)Indications:Typ e [...] as of this encounter (statuses as of 02/26/2024) Active Problems Problem Noted Date Diagnosed Date [...] as of this encounter (statuses as of 02/26/2024) Resolved Problems Problem Noted Date Diagnosed Date [...] as of this encounter (statuses as of 02/26/2024) Immunizations Name Administration Dates Next Due COVID-19 [...] Upcoming Encounters Date Type Department Care Team ([facility] st Contact Info) Description 04/12/2024 2:00 PM EDT Office Visit Nutrition & Weight Management, [facility] [address] [place] [address] Cindy Lindsey PA-C [address] [place] [address] 07/04/2024 11:40 AM EDT Office Visit Family Practice [facility] [address] [place] [phone] Tho Hurley MD [address] [place] [address] 08/10/2024 7:40 AM EDT Office Visit Dermatology [address] [phone] Miah Maciel PA-C [address] [place] [address] 11/04/2024 10:00 AM EST Telemedicine Sleep Disorders Ctr [facility] [address] [place] [phone] Estefania Nix DO [address] [place] [address] Scheduled Procedures Name Priority Associated Diagnoses Date/Ti [...] the patient have Health Care Power of Snowboarding Instructor? No Care Teams Charge Weigher Relationship Specialty Start Date End Date Tho Hurley MD [address] [place] [address] PCP - General Family Medicine 10/10/14 documented as of this encounter
--- OUTSIDE RECORDS SUMMARY | 2024-03-01 09:35 | External Medical Summary | Summary of Care ---
Author Name Unknown Organization [facility] Address [address] [place] [address] Phone [phone] Care Team Providers Care Packager Head Name Role Phone Tho Mcgee MD Primary Care Provider [phone] Reason for Visit * Reason Comments Colposcopy Encounter Details Date Type Department Care Team (Latest Contact Info) Description 02/24/2024 11:00 AM EDT Office Visit Gynecology and Obstetrics, [place] [address] [facility] [place] [address] Brain Hargrove DO [address] [place] [address] Low grade squamous intraepithelial lesion [...] before bedtime. 60 Each 5 12/16/2022 Active [employer] Verio In Vitro Strip (Glucose Blood)Indications:Typ e 2 diabetes mellitus with hemoglobin A1c goal of less than 8.0% (HCC) Use up to 1 times a day E11.9. type 2 Diabetes Mellitus 100 Strip 11 01/23/2023 Active ChangoTouch Verio w/Device KitIndications:Type 2 diabetes mellitus with [...] 1001 - 1990. Get a ammmogram in [facility] 2023 . They do a breast exam at [facility] yearly . 01/01/2024 al Diagnosis A. Cervix, SurePath Pap test: Adequacy: Satisfactory for evaluation; transformation zone present. Interpretation: Epithelial cell abnormality: Low-grade squamous intraepithelial lesion (LSIL, [place] [facility]). AUTOMATED REVIEW: Focal Point computerized screening device (quintile 2, review). NOTE: Positive HPV results noted below. Recommend clinical correlation and correlation with curr Patient Active Problem List Diagnosis Code Migraine G43.909 Vitamin D deficiency E55.9 Multiple drug allergies Z88.9 Latex allergy Z91.040 Allergic rhinitis J30.9 Splenic mass R16.1 Hamartoma ([facility]) Q85.9 Plaque psoriasis L40.0 Nonspecific urethritis N34.1 History of abnormal cervical Pap smear Z87.42 Centrilobular emphysema ([facility]) J43.2 VAL on CPAP G47.33 Tobacco use Z72.0 Ground glass opacity present on imaging of lung R91.8 Body mass index (BMI) of 60.0 to 69.9 in adult ([facility]) Z68.44 Pulmonary nodules R91.8 Morbid obesity due to excess calories ([facility]) E66.01 Osteoarthritis M19.90 Sciatica, right side M54.31 COPD, group C, by GOLD 2017 classification ([facility]) J44.9 Diabetes mellitus without complication ([facility]) E11.9 Type 2 diabetes mellitus with hyperglycemia ([facility]) E11.65 Current Outpatient Medications Medication Sig Dispense Refill Famotidine 20 MG Oral Tablet Take 2 Tablets by mouth in the morning. ProAir HFA 108 (90 Base) MCG/ACT Inhalation Aerosol Solution Inhale 2 Puffs by mouth every 4 hours as needed for Wheezing. 36 g 2 Excedrin Extra Strength 250-250-65 MG Oral Tablet (Cbkmfro-Uurbqlmcrauzq-Gjoorefh) Take 1 Tablet bymouth every 6 hours as needed for Pain, Moderate or Headache. CPAP every night at bedtime . Fluticasone-Salmeterol 250-50 MCG/ACT Inhalation Aerosol Powder Breath Activated (Advair Diskus) Inhale 1 Puff by mouth in the morning and 1 Puff before bedtime. 60 Each 5 ChangoTouch Verio In Vitro Strip (Glucose Blood) Use [...] performed by Torey Berg DO at OR [facility] INTRANASAL BIOPSY 04/2010 Nasal polypectomy KNEE ARTHROSCOPY/ARTHROPLASTY [...] did biopsy . Nothing since then . [place] after 5% acetic acid with SCJ seen . ECC done . No vulvar , vaginal or cervical lesion s. ECC doen . If all negatiev , do an key in 1 year . CC visit to: PCP: THO MCGEE [address] [place] [address] Brain Hargrove DO documented in this encounter Nursing Notes * Audrey Hester LPN - 02/24/2024 11:02 AM EDT Pt presents for a colposcopy. No complaints or concerns, documented in this encounter Plan of Treatment Upcoming Encounters Date Type Department Care Team (Late st Contact Info) Description 04/12/2024 2:00 PM EDT Office Visit Nutrition & Weight Management, [facility] [address] [place] [address] Cindy Lindsey PA-C [address] [place] [address] 07/04/2024 11:40 AM EDT Office Visit Family Practice [facility] [address] [place] [phone] Tho Mcgee MD [address] [place] [address] 08/10/2024 7:40 AM EDT Office Visit Dermatology [address] [phone] Miah Maciel PA-C [address] [place] [address] 11/04/2024 10:00 AM EST Telemedicine Sleep Disorders Ctr [facility] [address] [place] [phone] Estefania Nix DO [address] [place] [address] Scheduled Orders Name Type Priority Associated Diagnoses [...] Driver DO - 02/24/2024 11:41 AM EDT [place] after 5 % acetic acid with no [...] the patient have Health Care Power of Math And Physics Instructor? No Care Teams Packager Head Relationship Specialty Start Date End Date Tho Mcgee MD [address] [place] [address] PCP - General Family Medicine 10/10/14 documented as of this encounter"
--- OUTSIDE RECORDS SUMMARY | 2024-03-01 09:36 | External Medical Summary | Summary of Care ---
Author Name Unknown Organization [facility] Address [address] [place] [address] Phone [phone] Care Team Providers Care Employment Trainer Name Role Phone Tho Hurley MD Primary Care Provider [phone] Reason for Visit * Reason Comments Lumbar Pain W/radiation Encounter Details Date Type Department Care Team (Late st Contact Info) Description 02/18/2024 9:00 AM EDT Telemedicine Interventional Pain Center, [facility] [address] [place] [address] Miranda De La O PA-C [address] [place] [address] Lumbar radicular pain*; Chronic bilateral low back [...] before bedtime. 60 Each 5 12/16/2022 Active [employer] Verio In Vitro Strip (Glucose Blood)Indications:Typ e [...] hospital or clinic location. After connecting through televAirWare [employer],patient was verified with two unique identifiers. Patient (or authorized legal registered representative) was then informed that this was [...] persistent 10/30/2014 COPD (chronic obstructive pulmonary disease) ([facility]) History of penicillin allergy 12/25/2014 Kidney stone [...] performed by Torey Berg DO at OR [facility] INTRANASAL BIOPSY 04/2010 Nasal polypectomy KNEE [...] Excedrin Extra Strength 250-250-65 MG Oral Tablet (Jsmuuya-Bftyjpbpdwhgo-Lxgxppis) Take 1 Tablet bymouth every 6 hours [...] AM EDT Office Visit Gynecology and Obstetrics, [place] [address] [facility] [place] [address] Brain Hargrove, [address] [facility] [place] [address] 04/12/2024 2:00 PM EDT Office Visit Nutrition & Weight Management, [facility] [address] [facility] [place] [address] Cindy Lindsey PA-C [address] [facility] [place] [address] 07/04/2024 11:40 AM EDT Office Visit Family Practice [facility] [address] [place] [phone] Tho Hurley MD [address] [place] [address] 08/10/2024 7:40 AM EDT Office Visit Dermatology [address] [phone] Miah Maciel PA-C [address] [place] [address] 11/04/2024 10:00 AM EST Telemedicine Sleep Disorders Ctr [facility] [address] [place] [phone] Estefania Nix, [address] [facility] [place] [address] Scheduled Procedures Name Priority Associated Diagnoses Date/Ti [...] the patient have Health Care Power of Patient Experience Coordinator? No Care Teams Employment Trainer Relationship Specialty Start Date End Date Tho Hurley MD [address] [place] [address] PCP - General Family Medicine 10/10/14 documented as of this encounter
[2024-03-01] MEDS ORDERED: ONDANSETRON INJ 2 MG/ML 2 ML VIAL ONE (09:45)
--- NOTE | 2024-03-01 09:55 | Operative Report ---
PG Post Operative Report Pre & Post Diagnosis Operation Date: 03/01/24 07:00 Pre-Op Diagnosis: Left Knee Degenerative Joint Disease Post-Op Diagnosis: Left Knee Degenerative Joint Disease I identified the patient and participated in the time-out.: Yes Procedure Operation Date: 03/01/24 07:00 Actual Procedures p Left Total Knee Arthroplasty(Left) - Antony Walton MD Surgeon Antony Walton MD [employer] Alejandro Bronson PA-C Estimated Blood Loss 50 Findings Consistent with Post-Op Diagnosis Operative findings showed a large soft tissue envelope. She had a very stiff knee with about 10 to 15 degree flexion contracture and only can bend to 90 degrees. She had extensive grade 4 [id number] disease in all 3 compartments with osteophytes in all 3 compartments with extensive erosions in all 3 compartm ents. Specimens Left knee sent for pathology. Anesthesia Type Spinal MAC Complications none Disposition Accompanied Patient To Recovery: No Indications Patient is 53-year-old morbidly obese female with a long history of bilateral knee pain discomfort describes gotten worse over time. She been through extensive conservative treatments became less successful. She was having trouble even walking due to her severe disease. She failed all conservative measures. She is attempted weight loss without success. She elected with a left total knee replacement. Description of Procedure Operative implants consist of: 1 Biomet Vanguard size 67.5 left posterior stabilized femoral component. 2. Biomet size 71 Vanguard III 160 tibial tray with a 12 mm x 80 mm stem with a 2.5 mm offset and a small cruciate wing. 3. 10 mm post stabilized polyethylene insert. 4. 31 x 8 all poly patella. The patient was taken to the operating, identified, placed on the operating table in the supine position. All contact areas were appropriately padded. IV antibiotic 5 by anesthesia team. A spinal anesthetic and adductor canal block had provided in the holding area. Solomon catheter was placed in sterile fashion for the left thigh turn was then placed in the left lower extremities then prepped and draped in usual sterile fashion. The left leg was elevated exsanguinated with use of an Esmarch and a turn was placed at 350 mmHg. An anterior approach the left knee was then performed to longitudinal incision centered over the patella. Sharp dissection was carried through subcutaneous tissue down the extensor mechanism. Medial parapatellar arthrotomy incision was made. Some subperiosteal dissection was carried out medially. The fat pad was resected from Neath patella tendon. The lateral patellofemoral ligament was released. Patella subluxated laterally and the knee was flexed. The osteophytes taken on distal femur. The ACL and PCL were then released from the distal femur and the tibia subluxated anteriorly. The intercondylar eminence was then excised. I then reamed the proximal tibia up to a size 12. We left this in place. The IM cutting guide was placed and the proximal tibial cut was made remove about 2 mm of bone from the medial side. The tibia was sized to a size 71. Attention drawn the femur. The distal femur examined the sharp drop with intramedullary canal was suction. A left 5 degree valgus cutting guide was placed. This femoral cutting block was pinned in place. Distal femoral cut was made to take an additional 5 mm of bone off the femur due to her flexion contracture. The femur was then sized to a size 67.5. The AP cutting block was pinned parallel to the optimal axis which was 5 degrees of external rotation. The anterior cut, anterior chamfer, posterior cut, posterior chamfer cuts were made. The box cutting guide was placed in the just slight lateral and the box cut was made. The knee was flexed. The remnants of the medial and lateral menisci were excised. The osteophyte taken off the posterior aspect of the femur. Attention drawn back to the tibia. The tibial tray was pinned in Patricia external rotation. I then prepared the proximal tibia for a 12 x 80 mm offset stem with a 2.5 mm offset and a small cruciate wing. The implant was assembled and we placed this. We placed the femoral component. We then trialed the knee and the 10 mm insert fit most appropriately. Attention drawn the patella. The patella was cleaned of all soft tissues. Patella thickness measured 23 mm in thickness. I cut this down to 15. I left her patella little bit thick due to the very large nature of this lady. The lug holes were drilled for the patella. The lateral osteophyte was removed. Patella button was placed. Knee was taken through range of motion patella tracked appropriately with the end no thumbs test. Attention drawn to placing the permanent components. Nupathe all trial components were removed. Bone plug was placed in the distal femur limit blood loss. A double batch Palacos G cement was mixed. I did add an additional gram of vancomycin due to her large size. A Biomet Vanguard size 67.5 left Po stabilized femoral component, size 71 Vanguard III 160 tibial tray with a 80 x 12 mm offset stem with a 2.5 mm offset and a small cruciate wing, and a 10 mm pro stabilized poly of this insert, and a 31 x 8 all poly patella then cemented in place. The knee was brought out into full extension till cement hardened. Final cement check was then performed. The pericapsular tissues were injected with total of 100 cc of orthopedic joint mix. The patient did receive 1 g tranexamic acid. The tourniquet was then let down for final tourniquet time of 89 minutes. Hemostasis assured with electrocautery. The wound was once again irrigated. The extensor Meclomen closed with combination 1 PDS suture #1 Vicryl suture in a [id number] fashion. Extensor Meclomen checked found to be intact and subcutaneous tissues then closed with 2 Dexon suture in a buried interrupted fashion skin was closed skin sandeep. Leg was then cleaned and dried and a sterile dressing with Xeroform, 4 fours, sterile ABD pad, sterile cast padding, River bandage were applied. The patient then transferred to the recovery room in stable condition. Patient tolerated procedure well and there were no complications. Alejandro Bronson, my physician sales support assistant, was present for the entire procedure. His assistance was essential and required for appropriate patient positioning, prepping and draping, surgical exposure, performing the technical details of the operation, placement the implants, closure of the wound, and placement of the sterile bandage. This patient is a morbidly obese with a BMI 65. Due to the very large nature of her body and the arthritis made this surgery significantly more difficult and took about twice the abnormal operating room time. I attest to the content of the Intraoperative Record and any orders documented therein. Any exceptions are noted below.
--- NOTE | 2024-03-01 10:25 | Anesthesiology Progress Note ---
Date of Service March 01, 2024 Anesthesia Post Procedure Vital Signs Vital Signs: Temp Pulse Pulse Resp BP Pulse Ox O2 Del Method 03/01/24 10:20 77 18 143/64 H 93 Room Air 03/01/24 10:10 36.4 C L 70 16 137/66 92 Room Air 03/01/24 10:00 67 17 128/68 94 Room Air 03/01/24 09:50 67 13 128/70 92 Room Air 03/01/24 09:40 36.4 C L 67 20 115/53 L 95 Room Air 03/01/24 05:46 36.8 C 73 20 187/87 H 97 Room Air Pain Intensity Left Knee: Pain Intensity: 3 Transfer of Care Handoff Completed per policy Notes Mental Status: alert / awake / arousable Patient Amnestic to Procedure: Yes Nausea / Vomiting: adequately controlled Pain: adequately controlled Airway Patency, RR, SpO2: stable & adequate BP & HR: stable & adequate Hydration State: stable & adequate Neuraxial Anesthesia: was administered and sensory block is resolving Anesthetic Complications: no major complications apparent
--- NOTE | 2024-03-01 10:55 | XRay Report ---
LEFT KNEE 2 VIEWS History: Left total knee arthroplasty. Degenerative arthritis. Postop. FINDINGS: The patient is status post a left total knee arthroplasty. The hardware is intact. No fract ure or dislocation. Skin sandeep are in place. IMPRESSION: Left total knee arthroplasty. No evidence for hardware complication. ACT 112: Negative or not required by law. Electronically signed by: Bahman Walker M.D. 03/01/2024 10:54 AM
[2024-03-01] MEDS ORDERED: METOCLOPRAMIDE HCL INJ 5 MG/ML 2 ML VIAL IV PRN (12:11)
[2024-03-01] MEDS ORDERED: PHARMACY GLYCEMIC MGMT CONSULT PRN (12:11)
[2024-03-01] MEDS ORDERED: ALUMINUM/MAGNESIUM SUSP 30 ML UDC PO PRN (12:11)
[2024-03-01] MEDS ORDERED: bisacodyL 10 MG SUPP PR PRN (12:11)
[2024-03-01] MEDS ORDERED: GLUCAGON FOR INJ 1 MG VIAL SQ PRN (12:11)
[2024-03-01] MEDS ORDERED: DEXTROSE 50% 50 ML SYRINGE IV PRN (12:11)
[2024-03-01] MEDS ORDERED: MAGNESIUM HYDROXIDE SUSP 30 ML UDC PO PRN (12:11)
[2024-03-01] MEDS ORDERED: GLUCOSE 40% GEL 15 GM TUBE PO PRN (12:11)
[2024-03-01] MEDS ORDERED: diphenhydrAMINE Capsule 25 MG CAP PO PRN (12:11)
[2024-03-01] MEDS ORDERED: GLUCOSE 10 TAB/TUBE PO PRN (12:11)
[2024-03-01] MEDS ORDERED: ALBUTEROL HFA 8 GM INHALER INH PRN (12:11)
[2024-03-01] MEDS ORDERED: CARBOHYDRATES FOR HYPOGLYCEMIA PO PRN (12:11)
[2024-03-01] MEDS: SODIUM CHLORIDE 0.9% 1,000 ML IV SCH (12:17)
[2024-03-01] MEDS: GUSELKUMAB 100 MG/ML SQ SCH (12:17)
--- NOTE | 2024-03-01 13:06 | Pharmacy Report ---
Pharmacy Glycemic Short Note 2 - Date of Service March 01, 2024 - Glycemic Short BSG Results (Last 24 hours): 03/01/24 03/01/24 03/01/24 05:49 09:45 12:10 POC Glucose 138 H 151 H 130 H OUTPATIENT ANTIDIABETIC REGIMEN: * Metformin 500 mg PO BIDM HbA1c: 7% (02/11/24) ASSESSMENT: * RE is a 53 year old female POD #0 s/p left total knee arthroplasty * No steroids in OR, but ordered dexamethasone 10 mg IV x 1 tomorrow morning * Reasonable outpatient glycemic control w/ metformin monotherapy * Blood sugar mildly elevated preoperatively (151 mg/dL) * Will utilize conservative Novolog parameters initially - may need to tighten tomorrow w/ steroids PLAN FOR INPATIENT GLYCEMIC CONTROL: * Hold outpatient oral diabetes medications * Basal insulin * Lantus 15 units SQ x 1 * Bolus insulin * NovoLog per scale ACHS or Q6hrs while NPO * Goal Range: Low 110 mg/dL - High 140 mg/dL * Correction Factor: 25 mg/dL/unit * Nutritional / Prandial insulin per carb ratio of 1 unit per 9 grams CHO consumed
[2024-03-01] MEDS: INSULIN ASPART PER UNIT CHARGE SC SCH (13:14)
[2024-03-01] MEDS: KETOROLAC 30 MG/ML VIAL IV SCH (13:16)
[2024-03-01] MEDS: oxyCODONE HCL IR 5 MG TAB (IMMEDIATE RELEASE) PO PRN (13:57)
[2024-03-01] MEDS: LANTUS PER UNIT CHARGE SC ONE (13:59)
[2024-03-01] MEDS: ceFAZolin 2000MG 2,000 MG/15 ML SYR IV SCH (14:00)
[2024-03-01] MEDS: TRANEXAMIC ACID / 0.7% NACL 1,000 MG/100 ML BAG IV SCH (17:14)
[2024-03-01] MEDS: Scopolamine CHECK PATCH PLACEMENT SCH (17:14)
[2024-03-01] MEDS: ASCORBIC ACID 500 MG TAB PO SCH (17:14)
[2024-03-01] MEDS: DOCUSATE SODIUM 100 MG CAP PO SCH (20:17)
[2024-03-01] MEDS: SENNA 8.6 MG TAB PO SCH (20:18)
[2024-03-01] MEDS: CETIRIZINE HCL 10 MG TABLET PO SCH (20:24)
[2024-03-01] MEDS: ASPIRIN 81 MG ECTAB PO SCH (20:25)
[2024-03-01] MEDS: FAMOTIDINE 40 MG TABLET PO SCH (20:25)
[2024-03-01] MEDS ORDERED: SENNA 8.6 MG TAB PO SCH (21:00)
[2024-03-01] MEDS: HYDROmorphone INJ 0.5 MG/0.5 ML SYR IV PRN (23:11)
[2024-03-02 06:43] LABS: Hematocrit (blood only) 33.5 % (37.0-47.0); Hemoglobin 10.6 g/dl (12.0-16.0); Mean Corpuscular Hemoglobin 29.2 pg (25.0-34.0); Mean Corpuscular Hgb Conc 31.6 g/dL (32.0-36.0); Mean Corpuscular Volume 92.3 fL (80.0-100.0); Mean Platelet Volume 10.6 fL (9.4-12.4); Platelet Count 270 K/uL (130-400); RDW Standard Deviation 46.4 fL (36.4-46.3); Red Blood Count 3.63 M/uL (4.20-5.40); White Blood Count 9.98 K/ul (4.8-10.8)
[2024-03-02 07:07] LABS: BUN Creatinine Ratio 18.7 (10-20); Creatinine Clr Calc Pharmacy 119.9 ml/min; Est GFR (African American) 82.3 ml/min; Potassium 4.1 mmol/L (3.5-5.1)
[2024-03-02] MEDS: amLODIPine BESYLATE 5 MG TAB PO SCH (08:13)
[2024-03-02] MEDS: MULTIVITAMIN TAB PO SCH (08:13)
[2024-03-02] MEDS: hydroCHLOROthiazide 25 MG TAB PO SCH (08:14)
[2024-03-02] MEDS: allopurinoL 300 MG TAB PO SCH (08:14)
[2024-03-02] MEDS: NICOTINE 14 MG/24 HR PATCH TD SCH (08:16)
[2024-03-02] MEDS: dexAMETHasone 10 MG in SYRINGE 0 ML IV SCH (08:18)
[2024-03-02] MEDS: LANTUS PER UNIT CHARGE SC ONE (08:39)
--- NOTE | 2024-03-02 09:31 | Orthopedic Progress Note ---
Date of Service March 02, 2024 Assessment & Plan (1) Status post left knee replacement: Overall, she is doing quite well today with good pain control to the left knee. She will work with physical therapy later this morning to work on ambulation and range of motion exercises. She is on aspirin for DVT prophylaxis. She can be discharged home later this morning pending physical therapy evaluation recommendations. She will follow-up in [address] Walton for postoperative management. Mai Cid was seen and evaluated this morning resting comfortably in no apparent distress. She notes that she has good pain control to the left knee. The only pain that she really complains about today is a little bit of discomfort from the tourniquet. She notes she sees been up and ambulating to the bathroom without any significant issues. She is yet to work with physical therapy today. She denies any other concerns today. Review of Systems All systems reviewed & are unremarkable except as noted in HPI & below. Physical Exam . On physical examination of left knee, dressings are clean, dry, intact. Her leg is out for extension. She has active plantarflexion dorsiflexion to the left ankle. +2 DP and PT pulses. Less than 2-second capillary refill. Normal sensation. Neurovascular intact. Results & Data Results & Data Laboratory Results . Diagnostic Findings . Postoperative x-rays of the left knee show prosthesis to be in anatomical alignment with no signs of fracture complication or loosening. PG Care Time/CCT Total # of Minutes Spent Total Time Spent with Patient: Total time spent is greater than 50% in coordination of care (as documented) at patient's floor/unit and/or counseling patient: Coding Level of Care Code 26122 Post Operative Follow-Up Diagnoses Status post left knee replacement Z96.652
--- NOTE | 2024-03-02 09:33 | Discharge Summary ---
Date of Service March 02, 2024 Principal Diagnosis Same as "Discharge Diagnosis" noted below under Discharge Instructions. Discharge Exam . On physical examination of left knee, dressings are clean, dry, intact. Her leg is out for extension. She has active plantarflexion dorsiflexion to the left ankle. +2 DP and PT pulses. Less than 2-second capillary refill. Normal sensation. Neurovascular intact. Discharge Data Procedures Performed Operation Date: 03/01/24 07:00 Actual Procedures p Left Total Knee Arthroplasty(Left) - Antony Walton MD Ordered Studies 03/01/24 05:00 US - OR guided needle placemen Routine Hospital Course (1) Status post left knee replacement: On March 01, 2024 Palak arrived at [facility] and underwent a left total knee arthroplasty performed by Dr. Walton with no complications. She had a spinal anesthetic. Postoperatively, she was started on aspirin for DVT prophylaxis and transferred to the general orthopedic floor in stable condition. Her hospital course was uneventful. On postoperative day #1, her vital signs are stable and her pain was well-controlled. She participated well with physical therapy working on ambulation and range of motion exercises. She was t hen discharged home in stable condition. She will follow-up in 2 to [address] Walton for postoperative management. PG Care Time/CCT Total # of Minutes Spent Total Time Spent with Patient: Total time spent is greater than 50% in coordination of care (as documented) at patient's floor/unit and/or counseling patient: Discharge Plan Discharge Items Patient Disposition: Home - Home Health Services Reason For Visit: Degenerative Joint Disease Left Knee Discharge Diagnosis: Left Knee Replacement Activity: Per Instructions section Non-emergency contact: Surgeon Call non-emergency contact if: you have any medication questions Follow-up/Referrals: Tho Hurley MD [Primary Care Provider] - Diet: Carb Consistent or DM2 Addtl Attending Provider Instructions: ACTIVITY RECOMMENDATIONS: Physical Therapy: * You will go to physical therapy three times each week for four to six weeks after your surgery in order to regain your knee range of motion and to retrain your knee to work properly. * It is just as important to make sure you are getting your knee perfectly straight as it is to regain your knee bend. * Taking a pain pill an hour before therapy can help you have a more productive and comfortable therapy session. Home Exercise: * You were shown a series of exercises (heel props, heel slides, etc.) in the hospital. Do these exercises three to four times each day including the exercises you were shown in physical therapy. Walking: * Get up and walk several times each day. For the first four weeks, try not to stand or walk for more than one hour at a time. If you do stand or walk for more than one hour, you will not hurt anything, but your knee and leg will likely swell. * As you feel comfortable, you may change from the walker or crutches to a cane and then to independent walking. MEDICATIONS: New Medicine: * You will likely be taking one or more of these medications: 1. Oxycodone - A quick and shorter-acting pain medication. Take one to two tablets every six hours to lessen your pain. 2. Aspirin - Thins your blood to lessen the chance of forming a blood clot. * The most common side effects of pain medicine and iron are nausea and constipation. If nausea or constipation is too much of a problem or if you have any questions about your new medicines or doses, call [facility] at . We will try to help you manage these issues. "VERY IMPORTANT TO READ AND REVIEW" Pain: * The immediate post-operative period after knee replacement surgery is often quite painful. * You are given a prescription for pain medicine. You should take it, as directed, when you need it, especially before physical therapy and before going to bed. Pain that interferes with sleep is very common and can last several months. * You will likely need pain medicine for the first four to six weeks. It will not stop all of the pain. The pain will lessen and as you feel better, you may change to milder pain medicine such as Tylenol. * The most common side effects of pain medicine are nausea and constipation, so don't take more than you need. SPECIAL CARE INSTRUCTIONS: TEDs/Elastic Stockings: * The white elastic stockings help limit swelling and prevent blood clots from forming in your legs. The more you wear them, the more they work. * Wear them for six weeks after knee replacement surgery and four weeks after partial knee replacement. Incision Site Care: * Remove dressing postoperative day 2 and then shower. Keep direct shower pressure off the incision site. * After showering, cover sandeep with dry gauze and change daily or more frequently if the dressing is getting saturated with drainage. * Use the JULIO CÉSAR stockings to hold dressing in place. DO NOT apply tape on the skin. * May completely stop using bandage if wound is dry and no drainage * Kathleen are removed between 2 and 3 weeks post-op. If your follow-up appointment is made before 2 weeks, please have your appointment re- scheduled. It is too early to remove the sandeep. Prevention of Infection: * Take antibiotics one hour before any dental cleaning, dental work, urological procedure, gastrointestinal procedure or any invasive surgery in order to prevent your new joint from getting infected. * You may get the antibiotics from the doctor performing the procedure or you may call our office at [phone] before and we will call in a prescription to the pharmacy of your choice. Things to Watch For: * Drainage from the incision site that occurs more than one week after your surgery. * Severely increased knee/leg pain or swelling. * Increased redness at the incision site. * Fever above 102 degrees Fahrenheit. * Unusual chest pain or shortness of breath. * Unusual pain or burning with urination. Call [facility] at [phone] with any of the above problems or if you have any questions about your medicines or recovery. FOLLOW UP VISIT: Make an appointment to see your doctor for approximately two weeks after surgery for a progress check and staple removal by calling the office at [phone]. Pending Studies at Discharge: No Stand-Alone Forms: My [facility] [employer], Smoking Cessation Medications and DC Order Prescriptions: Continued oxycodone 5 mg tablet 5 - 10 mg PO Q6 PRN (Reason: pain) Qty: 40 0RF Rx Instructions: Take as needed for pain ondansetron 4 mg tablet,disintegrating 4 mg PO Q8 PRN (Reason: nausea) Qty: 20 1RF Rx Instructions: Take as needed for nausea ketorolac 10 mg tablet 10 mg PO Q6 5 Days Qty: 20 0RF Rx Instructions: Take 4 times per day with food for 5 days to lessen pain and swelling. sennosides [Senokot] 8.6 mg tablet 8.6 mg PO BID 14 Days Qty: 28 0RF Rx Instructions: Take two times a day to prevent/treat constipation aspirin [Edouard Low Dose Aspirin] 81 mg tablet,delayed release (/EC) 81 mg PO BID 45 Days Qty: 90 0RF Rx Instructions: Take to prevent blood clots acetaminophen [Tylenol Extra Strength] 500 mg tablet 1,000 mg PO TID 30 Days Qty: 180 0RF Rx Instructions: Take 3 times per day to lessen pain. clindamycin HCl 300 mg capsule 300 mg PO TID Qty: 21 0RF (DME) [employer] Walker Misc See Rx Instructions .MEDSUPPLY Qty: 1 0RF Rx Instructions: As directed fluticasone propion-salmeterol [Advair HFA] 115-21 mcg/actuation Hfa Aerosol Inhaler 1 puff INHALATION Q12H PRN (Reason: allergies) cetirizine [Zyrtec] 10 mg Tablet 20 mg PO HS famotidine [Pepcid] 20 mg Tablet 40 mg PO QPM Excedrin Migraine 250-250-65 mg Tablet 2 tab PO BID albuterol sulfate 90 mcg/actuation Hfa Aerosol Inhaler 1 puff INHALATION Q6H PRN (Reason: Shortness Of Breath) metformin 500 mg Tablet 500 mg PO BID amlodipine 10 mg tablet 10 mg PO QAM allopurinol 300 mg tablet 300 mg PO QAM hydrochlorothiazide 25 mg Tablet 25 mg PO QAM Tremfya 100 mg/mL Syringe 100 mg SUBCUT Q2M hydroxyzine HCl 25 mg tablet PRN (Reason: Anxiety) bupropion HCl 150 mg tablet extended release 24 hr PO Admission Data Admit Date/Time: 03/01/24 09:47 Attending Provider: Antony Walton Admit Provider: Antony Walton Primary Care Provider: Tho Hurley Other Providers: [facility]
--- OUTSIDE RECORDS SUMMARY | 2024-03-02 18:09 | External Medical Summary | Summary of Care ---
Author Name Unknown Organization [facility] Address [address] [place] [address] Phone [phone] Care Team Providers Care Short Piece Handler Name Role Phone Tho Mcgee MD Primary Care Provider [phone] Reason for Visit * Reason Comments eRx-Medication Refill Encounter Details Date Type Department Care Team ([facility] st Contact Info) Description 02/28/2024 Refill Family [facility] [address] [place] [phone] Tho Mcgee MD [address] [place] [address] Allergies Active Allergy Reactions Criticality Noted Date [...] as of this encounter (statuses as of 03/01/2024) Medications Medication Sig Dispensed Refills Start Date [...] before bedtime. 60 Each 5 12/16/2022 Active OneTouch Verio In Vitro Strip (Glucose Blood)Indications:Typ e [...] EVENING MEALS 180 Tablet 3 01/23/2024 Active buPROPion HCl ER (XL) 150 MG Oral Tablet Extended Release 24 Hour (Wellbutrin XL) TAKE 1 TABLET BY MOUTH ONCE DAILY 90 Tablet 0 03/01/2024 Active documented as of this encounter (statuses as of 03/01/2024) Active Problems Problem Noted Date Diagnosed Date [...] as of this encounter (statuses as of 03/01/2024) Resolved Problems Problem Noted Date Diagnosed Date [...] as of this encounter (statuses as of 03/01/2024) Immunizations Name Administration Dates Next Due COVID-19 [...] encounter Miscellaneous Notes * Telephone Encounter - Tho Mcgee MD - 03/01/2024 3:07 PM EDTSigned Prescriptions: Disp Refills buPROPion HCl ER (XL) 150 MG Oral Tablet E*90 Tab*0 Sig: TAKE 1 TABLET BY MOUTH ONCE DAILY Authorizing Provider: THO MCGEE * Telephone Encounter - Ka[facility] - 03/01/2024 11:11 AM EDT Pending Prescriptions: Disp Refills buPROPion HCl ER (XL) 150 MG Oral Tablet E*90 Tab*0 Sig: TAKE 1 TABLET BY MOUTH ONCE DAILY * Telephone Encounter - Megan Bhat [facility] - 03/01/2024 5:35 AM EDT Pending Prescriptions: Disp Refills buPROPion HCl ER (XL) 150 MG Oral Tablet E*90 Tab*0 Sig: TAKE 1 TABLET BY MOUTH ONCE DAILY * Telephone Encounter - Isidro Mann [facility] - 03/01/2024 2:43 AM EDTPending Prescriptions: Disp Refills buPROPion HCl ER (XL) 150 MG Oral Tablet E*90 Tab*0 Sig: TAKE 1 TABLET BY MOUTH ONCE DAILY * Telephone Encounter - Isidro Mann [facility] - 03/01/2024 2:40 AM EDT 01/04/24 OV pt stated she did not tolerate 300mg XL formulation and was changed to 150mg SR BID. Current request is for 150mg XL once daily with pt calling in and saying this is her current med. Will pend order for review and approval if appropriate. Thanks, Isidro Mann [facility] Clinical Pharmacist Telepharmacy [phone] 03/01/2024 2:42 AM * Telephone Encounter - Shravan Spencer PHARM Tech - 02/29/2024 2:59 PM EDT Patient requesting refills for buPROPion HCl ER (XL) 150 MG Oral Tablet Extended Release 24 Hour (Wellbutrin XL). Upon chart review, medication is listed as discontinued, with discontinuation reason as "none". Please advise if you wish to continue this therapy for the patient. Pt stated she is not on the SR's, she is currently taking the XL's Thank you, Phillip Spencer, Redevelopment Manager Foundation Drill Operator Helper [facility] ([facility] (Formerly Telepharmacy) 02/29/2024,2:59 PM documented in this encounter Plan of Treatment Upcoming Encounters Date Type Department Care Team (Late st Contact Info) Description 04/12/2024 2:00 PM EDT Office Visit Nutrition & Weight Management, [facility] [address] [place] [phone] Cindy Lindsey PA-C [address] [place] [phone] 07/04/2024 11:40 AM EDT Office Visit Family Practice [facility] [address] [place] [phone] Tho Mcgee MD [address] [place] [address] 08/10/2024 7:40 AM EDT Office Visit Dermatology [facility] [address] [place] [phone] Miah Maciel PA-C [address] [place] [phone] 11/04/2024 10:00 AM EST Telemedicine Sleep Disorders [facility] [address] [place] [phone] Estefania Nix DO [address] [place] [id number] Scheduled Procedures Name Priority Associated Diagnoses Date/Ti [...] 10/03/2021, Additional history exists Mammogram 03/23/2024 03/23/2023, 05/0 11/2022, 03/20/2022, Additional history exists HbA1c 07/04/2024 [...] the patient have Health Care Power of Efficiency Miner Blasting? No Care Teams Short Piece Handler Relationship Specialty Start Date End Date Tho Mcgee MD [address] [place] [address] [phone] PCP - General Family Medicine 10/10/14 documented as of this encounter
== END 2024-03-02 11:34 | disposition home health service (06) ==
LOC: 3E 05:21 → ASU 05:21
DX: Z87.442 Personal history of urinary calculi; Z91.040 Latex allergy status; E66.01 Morbid (severe) obesity due to excess calories; Z88.2 Allergy status to sulfonamides; Z79.899 Other long term (current) drug therapy; F17.210 Nicotine dependence, cigarettes, uncomplicated; Z79.82 Long term (current) use of aspirin; L40.9 Psoriasis, unspecified; I10 Essential (primary) hypertension; Z79.84 Long term (current) use of oral hypoglycemic drugs; Z68.44 Body mass index [BMI] 60.0-69.9, adult; G47.33 Obstructive sleep apnea (adult) (pediatric); M17.12 Unilateral primary osteoarthritis, left knee; E11.9 Type 2 diabetes mellitus without complications; Z88.0 Allergy status to penicillin; M65.9 Synovitis and tenosynovitis, unspecified; E78.5 Hyperlipidemia, unspecified; Z88.8 Allergy status to other drugs, medicaments and biological substances; Z88.1 Allergy status to other antibiotic agents

== ENCOUNTER 2024-06-28 05:17 | Observation (INO) ==
--- NOTE | 2024-06-19 10:05 | Anesthesiology Consultation ---
Date of Service June 19, 2024 Assessment & Plan Chart Review Chart Review: Acceptable Risk for Surgery and Patient NOT seen in Pre Admission Testing Consults Requested none History Surgery Operation Date: 06/28/24 07:00 Proposed Procedures p Right Total Knee Arthroplasty - Antony Walton MD Height/Weight Height: 5 ft 6.5 in Weight: 168.736 kg Allergies Allergy/AdvReac Type Severity Reaction Status Date / Time Quinolones Allergy Severe angioedema Verified 06/17/24 11:40 Sulfa (Sulfonamide Allergy Severe anaphylaxis Verified 06/17/24 11:40 Antibiotics) ceftriaxone Allergy Intermediate hives Verified 06/17/24 11:40 cephalexin Allergy Intermediate Hives Verified 06/17/24 11:40 doxycycline Allergy Intermediate GI issues Verified 06/17/24 11:40 erythromycin base Allergy Intermediate GI issues Verified 06/17/24 11:40 - severe diarrhea moxifloxacin Allergy Intermediate Hives Verified 06/17/24 11:40 Penicillins Allergy Intermediate anaphylaxsis Verified 06/17/24 11:40 as infant; adult - rash Cephalosporins Allergy Mild Hives Verified 06/17/24 11:40 latex Allergy Mild Anaphylaxis Verified 06/17/24 11:40 metronidazole [From Flagyl] Allergy Mild Hives Verified 06/17/24 11:40 phenobarbital Allergy Unknown paradoxical Verified 06/17/24 11:40 effect as child montelukast AdvReac Intermediate Cough Verified 06/17/24 11:40 Medications Home Medications Medication Instructions Recorded Confirmed Last Taken albuterol sulfate 90 mcg/actuation 1 puff inhalation Q6H PRN 01/05/19 06/17/24 08/20/19 12:00 aerosol inhaler Shortness Of Breath pacjrpe-tmvitecgoevfn-hqrtrtht 250 2 tab PO BID 01/05/19 06/17/24 08/21/19 09:00 mg-250 mg-65 mg tablet (Excedrin Migraine) cetirizine 10 mg tablet (Zyrtec) 20 mg PO HS 01/05/19 06/17/24 02/29/24 17:00 famotidine 20 mg tablet (Pepcid) 40 mg PO QPM 01/05/19 06/17/24 02/29/24 17:00 fluticasone propionate 115 1 puff inhalation Q12H PRN 08/12/19 06/17/24 08/21/19 09:00 mcg-salmeterol 21 mcg/actuation seasonal allergies HFA inhaler (Advair HFA) allopurinol 300 mg tablet 300 mg PO QAM 01/27/24 06/17/24 03/01/24 03:30 amlodipine 10 mg tablet 10 mg PO QAM 01/27/24 06/17/24 03/01/24 03:30 guselkumab 100 mg/mL subcutaneous 100 mg subcut Q2M 01/27/24 06/17/24 06/16/24 syringe (Tremfya) hydrochlorothiazide 25 mg tablet 25 mg PO QAM 01/27/24 06/17/24 02/29/24 08:00 metformin 500 mg tablet 500 mg PO BID 01/27/24 06/17/24 02/29/24 17:00 Wheeled Walker #1 ea 02/11/24 06/17/24 Unknown hydroxyzine HCl 25 mg tablet 25 mg PO TID PRN Anxiety 02/11/24 06/17/24 Unknown acetaminophen 500 mg tablet 1,000 mg PO TID PRN pain 06/17/24 06/17/24 Unknown (Tylenol Extra Strength) bupropion HCl 150 mg tablet,12 hr 150 mg PO QAM 06/17/24 06/17/24 Unknown sustained-release fluticasone propionate 50 1 spray intranasal BID PRN 06/17/24 06/17/24 Unknown mcg/actuation nasal seasonal allergies spray,suspension (Flonase Allergy Relief) semaglutide 0.25 mg or 0.5 mg (2 0.5 mg subcut WK 06/17/24 06/17/24 06/06/24 mg/3 mL) subcutaneous pen injector (Ozempic) Past Medical History Medical History History of seizures as a child 6 weeks-9 years of age from allergy complication in infancy Emphysema lung per [facility] EMR Malignant hyperthermia paternal aunt, pt denies testing Elevated uric acid in blood Hypertension controlled, stable per pt Diabetes mellitus, type 2 NIDDM Radiculopathy chronic History of kidney stones IBS (irritable bowel syndrome) Aortic stenosis Noted per remote records, most recent Echo 06/2020 indicates "aortic stenosis is absent"- CAL 1.8cm2 Psoriasis Sciatica chronic right>left leg weakness and numbness DJD (degenerative joint disease), lumbar Pulmonary hypertension "Mild", follows with [facility] Pul Echo 06/2020: "Normal pulmonary pressures are suggested by 2-D echo findings" Sleep apnea CPAP (compliant) Depression Asthma controlled, stable per pt; last rescue inhaler use in January 2024. Migraines Past Family History Family History Aunt Family history of malignant hyperthermia pt is not 100% sure about this. states her paternal aunt on OR table because of anesthesia complictions. said "rings a call." - pt denies personal history of anesthesia complications Father Family history of diabetes mellitus Aunt Family history of diabetes mellitus Grandmother (Paternal) Family history of diabetes mellitus Grandfather (Maternal) History of rectal cancer Father History of colon polyps Past Surgical History Surgical History S/P total knee arthroplasty S/P epidural steroid injection Hx of esophagogastroduodenoscopy History of colonoscopy History of cystoscopy x2 Hx of endoscopic sinus surgery Hx of tonsillectomy Hx of arthroscopy of left knee History of endometrial ablation Hx of tubal ligation History of Social History Smoking Status: Current every day smoker tobacco type: cigarettes Smoking cigarettes per day: 1/2 PPD (advised on policy) Do You Dip or Chew Tobacco: No Hx Alcohol Use: Yes Alcohol type: beer and wine alcohol intake frequency: holidays/special occasions only Hx Substance Use: No substance use type: does not use Testing Laboratory Results 05/30/24 Na 142 K 3.4 Cl 100 CO2 24 BUN 13 Cr 1.0 glucose 123 WBC 11.0 Hgb 13.2 platelet 414 PT 13.1 PTT 27 INR 1.0 Electrocardiogram Date: 02/11/24 Findings: + NSR @ (75 bpm) Chest X-Ray Date: 02/11/24 Findings: + NAD Echocardiogram Date: 07/12/20 LV wall motion is normal by limited analysis. All LV segments are not visualiz ed. EF 55-59% The tricuspid regurgitation spectral Doppler examination is inadequate to calculate the RVSP. Normal pulmonary pressures are suggested by 2-D echo findings.
--- NOTE | 2024-06-22 12:17 | History & Physical Report ---
Date of Service June 22, 2024 Assessment & Plan (1) Right knee DJD: 53-year-old morbidly obese F patient with multiple medical comorbidities including diabetes hypertension asthma with right knee tricompartment DJD. She is recovered nicely from the left knee replacement is doing well and continues to be limited by her right knee. She like to proceed with knee replacement. Plan: When taken to the operating do right total knee replacement. Will use the stem and the tibia similar to wear a left knee to try and optimize her stability and long-term survival of the implant. I will probably put some vancomycin in the cement due to her large size and therefore increased risk for infection. I will plan on DVT prophylaxis including teds, SCDs, aspirin twice a day. She is planned to be discharged home using home health. She knows to hold her Ozempic to 1 week before hand. (2) Status post left knee replacement: History of Present Illness Chief Complaint: . Persistent longstanding right knee pain Primary Care Provider: Tho Hurley MD . The patient is a 53-year-old female whose had a long history of bilateral knee pain discomfort and decreased mobility. She been through extensive conservative treatment which became less successful. That she had her left knee replaced back in February of this year. She is done remarkably well from this. She continues to be limited by right knee pain and discomfort is global pain. That she is walking tolerance of couple blocks at best. That she is using a cane to get around. Allergies Allergy/AdvReac Type Severity Reaction Status Date / Time Quinolones Allergy Severe angioedema Verified 06/17/24 11:40 Sulfa (Sulfonamide Allergy Severe anaphylaxis Verified 06/17/24 11:40 Antibiotics) ceftriaxone Allergy Intermediate hives Verified 06/17/24 11:40 cephalexin Allergy Intermediate Hives Verified 06/17/24 11:40 doxycycline Allergy Intermediate GI issues Verified 06/17/24 11:40 erythromycin base Allergy Intermediate GI issues Verified 06/17/24 11:40 - severe diarrhea moxifloxacin Allergy Intermediate Hives Verified 06/17/24 11:40 Penicillins Allergy Intermediate anaphylaxsis Verified 06/17/24 11:40 as infant; adult - rash Cephalosporins Allergy Mild Hives Verified 06/17/24 11:40 latex Allergy Mild Anaphylaxis Verified 06/17/24 11:40 metronidazole [From Flagyl] Allergy Mild Hives Verified 06/17/24 11:40 phenobarbital Allergy Unknown paradoxical Verified 06/17/24 11:40 effect as child montelukast AdvReac Intermediate Cough Verified 06/17/24 11:40 Home Medications Medication Instructions Recorded Confirmed Type albuterol sulfate 90 mcg/actuation 1 puff inhalation Q6H PRN 01/05/19 06/17/24 History aerosol inhaler Shortness Of Breath fwwwndt-vyosnlmudlwgf-pqzbofob 250 2 tab PO BID 01/05/19 06/17/24 History mg-250 mg-65 mg tablet (Excedrin Migraine) cetirizine 10 mg tablet (Zyrtec) 20 mg PO HS 01/05/19 06/17/24 History famotidine 20 mg tablet (Pepcid) 40 mg PO QPM 01/05/19 06/17/24 History fluticasone propionate 115 1 puff inhalation Q12H PRN 08/12/19 06/17/24 History mcg-salmeterol 21 mcg/actuation seasonal allergies HFA inhaler (Advair HFA) allopurinol 300 mg tablet 300 mg PO QAM 01/27/24 06/17/24 History amlodipine 10 mg tablet 10 mg PO QAM 01/27/24 06/17/24 History guselkumab 100 mg/mL subcutaneous 100 mg subcut Q2M 01/27/24 06/17/24 History syringe (Tremfya) hydrochlorothiazide 25 mg tablet 25 mg PO QAM 01/27/24 06/17/24 History metformin 500 mg tablet 500 mg PO BID 01/27/24 06/17/24 History Wheeled Walker #1 ea 02/11/24 06/17/24 Rx hydroxyzine HCl 25 mg tablet 25 mg PO TID PRN Anxiety 02/11/24 06/17/24 History acetaminophen 500 mg tablet 1,000 mg PO TID PRN pain 06/17/24 06/17/24 History (Tylenol Extra Strength) bupropion HCl 150 mg tablet,12 hr 150 mg PO QAM 06/17/24 06/17/24 History sustained-release fluticasone propionate 50 1 spray intranasal BID PRN 06/17/24 06/17/24 History mcg/actuation nasal seasonal allergies spray,suspension (Flonase Allergy Relief) semaglutide 0.25 mg or 0.5 mg (2 0.5 mg subcut WK 06/17/24 06/17/24 History mg/3 mL) subcutaneous pen injector (Ozempic) Past Med/Surg History Problem List Status post left knee replacement Internal derangement of knee MCL sprain of right knee Right knee DJD Left knee DJD Medical History History of seizures as a child 6 weeks-9 years of age from allergy complication in infancy Emphysema lung per [facility] EMR Malignant hyperthermia paternal aunt, pt denies testing Elevated uric acid in blood Hypertension controlled, stable per pt Diabetes mellitus, type 2 NIDDM Radiculopathy chronic History of kidney stones IBS (irritable bowel syndrome) Aortic stenosis Noted per remote records, most recent Echo 06/2020 indicates "aortic stenosis is absent"- CAL 1.8cm2 Psoriasis Sciatica chronic right>left leg weakness and numbness DJD (degenerative joint disease), lumbar Pulmonary hypertension "Mild", follows with [facility] Pul Echo 06/2020: "Normal pulmonary pressures are suggested by 2-D echo findings" Sleep apnea CPAP (compliant) Depression Asthma controlled, stable per pt; last rescue inhaler use in January 2024. Migraines Surgical History S/P total knee arthroplasty S/P epidural steroid injection Hx of esophagogastroduodenoscopy History of colonoscopy History of cystoscopy x2 Hx of endoscopic sinus surgery Hx of tonsillectomy Hx of arthroscopy of left knee History of endometrial ablation Hx of tubal ligation History of Family History Aunt Family history of malignant hyperthermia pt is not 100% sure about this. states her paternal aunt on OR table because of anesthesia complictions. said "rings a call." - pt denies personal history of anesthesia complications Father Family history of diabetes mellitus Aunt Family history of diabetes mellitus Grandmother (Paternal) Family history of diabetes mellitus Grandfather (Maternal) History of rectal cancer Father History of colon polyps Social History Smoking Status: Current every day smoker Tobacco Type: Cigarettes Cigarettes Per Day: 1/2 PPD (advised on policy); Second Hand Exposure: No; Do You Dip or Chew Tobacco: No; Tobacco Cessation Education Requested by Patient: No Hx Alcohol Use: Yes Alcohol type: beer and wine Hx Substance Use: No Preferred Language: Occitan Communication Ability: Effective Armor Reconnaissance Vehicle Driver Required: No Beliefs That Will Affect Care: None Current Living Situation: Spouse Other Information That Helps Us Care for You: No Feels Safe at Home: Yes Safety Concerns: Feels Safe At This Time Assistive Devices: Cane, CPAP and Glasses Review of Systems All systems reviewed & are unremarkable except as noted in HPI & below. Physical Exam . Physical examination reveals an obese pleasant middle-age female. Examination of the knees reveal patient ambulates with the use of a cane. Examination the right knee reveals a large soft tissue envelope. Slight varus alignment to her knee. Range of motion is about 10 to 90 degrees. Her knee is quite stiff. No particular pain with hip motion. Examination left knee reveals well-healed incision. Large soft tissue envelope. Minimal swelling. Range of motion 0 to about 90. She can do a straight leg raise. Constitutional WD/WN, vitals as above Respiratory normal respiratory effort, lungs clear to auscultation Cardiovascular RRR, no murmur, no edema Gastrointestinal (Abdomen) normal bowel sounds, soft, nontender, no hepatosplenomegaly Results & Data Results & Data Laboratory Results . Diagnostic Findings . X-rays of the right knee reveal advanced right knee DJD. She has extensive grade 4 llfq-jy-kueo disease in all 3 compartments with osteophytes in all 3 compartments. Diffuse osteopenia. PG Care Time/CCT Total # of Minutes Spent Total Time Spent with Patient: Total time spent is greater than 50% in coordination of care (as documented) at patient's floor/unit and/or counseling patient: Coding Level of Care Code None Diagnoses Right knee DJD M17.11 Status post left knee replacement Z96.652
[~2024-06-28 05:17] MED LIST changes: -ALLERGY Noted to ORDERED Medication SCH; +[UNRECOGNIZED DRUG - REMARK] SCH
--- OUTSIDE RECORDS SUMMARY | 2024-06-28 05:41 | External Medical Summary | Summary of Care ---
Author Name Unknown Organization [facility] Address [address] [place] [address] Phone [phone] Care Team Providers Care Primary School Teacher Name Role Phone Tho Hurley MD Primary Care Provider [phone] Reason for Visit * Reason Comments Outpatient Testing Encounter Details Date Type Department Care Team ([facility] st Contact Info) Description 05/30/2024 11:00 AM EDT [facility] [phone] [address] Pre-op testing; Psoriasis; KP (keratosis pilaris) Allergies Active Allergy Reactions Criticality Noted Date [...] as of this encounter (statuses as of 05/30/2024) Medications Medication Sig Dispensed Refills Start Date End Date Status Famotidine 20 MG Oral Tablet Take 2 Tablets by mouth in the morning. Active ProAir HFA 108 (90 Base) MCG/ACT Inhalation Aerosol Solution Inhale 2 Puffs by mouth every 4 hours as needed for Wheezing. 36 g 2 09/25/2020 Active Excedrin Extra Strength 250-250-65 MG Oral Tablet (Aspirin-Acetaminoph en-Caffeine) Take 1 Tablet by mouth every 6 hours as needed for Pain, Moderate or Headache. Active CPAP every night at bedtime . Active Fluticasone-Salmeter ol 250-50 MCG/ACT Inhalation Aerosol Powder Breath Activated (Advair Diskus)Indications:M oderate persistent asthma with acute exacerbation Inhale 1 Puff by mouth in the morning and 1 Puff before bedtime. 60 Each 5 12/16/2022 Active OneTouch Verio In Vitro Strip (Glucose Blood)Indications:Ty pe 2 diabetes mellitus with hemoglobin A1c goal of less than 8.0% (HCC) Use up to 1 times a day E11.9. type 2 Diabetes Mellitus 100 Strip 11 01/23/2023 Active OneTouch Verio w/Device KitIndications:Type 2 diabetes mellitus with hemoglobin A1c goal of less than 8.0% (HCC) Use up to 1 times a day E11.9. type 2 Diabetes Mellitus 1 Kit 01/23/2023 Active traMADol HCl 50 MG Oral Tablet (Ultram) Take 1 Tablet by mouth every 6 hours as needed for Pain, Severe. 20 Tablet 08/07/2023 Active hydrOXYzine HCl 25 MG Oral TabletIndications:An xiety Take 1 Tablet by mouth every 6 hours as needed for Anxiety. 40 Tablet 2 09/23/2023 Active Cetirizine HCl 10 MG Oral Capsule Take 2 Capsules by mouth every evening. Active buPROPion HCl ER (SR) 150 MG Oral Tablet Extended Release 12 Hour (Wellbutrin SR)Indications:Anxie ty and depression Take 1 Tablet by mouth in the morning and 1 Tablet before bedtime. 60 Tablet 5 01/04/2024 Active Additional Information Patient not taking.Reported on 05/11/2024 Ozempic (0.25 or 0.5 MG/DOSE) 2 MG/3ML Solution Pen-injector (Semaglutide(0.25 or 0.5MG/DOS))Indicatio ns:Type 2 diabetes mellitus with hemoglobin A1c goal of less than 7.0% (HCC) Inject 0.25mg under the skin once weekly for 4 weeks then increase to 0.5mg under the skin once weekly thereafter 3 mL 1 01/06/2024 Active methylPREDNISolone 4 MG Oral Tablet Therapy Pack (Medrol Dosepack)Indications :Primary osteoarthritis of both knees follow package directions 21 Tablet 01/12/2024 Active Additional Information Patient not taking.Reported on 05/11/2024 Tremfya 100 MG/ML Subcutaneous Solution Prefilled Syringe (Guselkumab) Inject 100 mg under the skin every 8 weeks. 1 mL 2 01/18/2024 Active metFORMIN HCl 500 MG Oral Tablet (Glucophage)Indicati ons:Type 2 diabetes mellitus with hemoglobin A1c goal of less than 8.0% (HCC) TAKE 1 TABLET BY MOUTH TWICE DAILY WITH MORNING MEAL AND WITH EVENING MEALS 180 Tablet 3 01/23/2024 Active buPROPion HCl ER (XL) 150 MG Oral Tablet Extended Release 24 Hour (Wellbutrin XL) TAKE 1 TABLET BY MOUTH ONCE DAILY 90 Tablet 03/01/2024 Active hydroCHLOROthiazide 25 MG Oral Tablet (Hydrodiuril)Indicat ions:Hypertension goal BP (blood pressure) < 140/90 TAKE 1 TABLET BY MOUTH ONCE DAILY IN THE MORNING 90 Tablet 3 03/28/2024 Active amLODIPine Besylate 10 MG Oral Tablet (Norvasc)Indications :HTN, goal below 140/90 TAKE 1 TABLET BY MOUTH IN THE MORNING 90 Tablet 3 04/21/2024 Active Mometasone Furoate 0.1 % External Solution (Elocon) Apply to the ears twice daily for 1-2 weeks as needed 60 mL 2 05/12/2024 Active Furosemide 20 MG Oral Tablet (Lasix)Indications:E koffi, unspecified type One tablet once ad ay as needed for edema 30 Tablet 1 05/22/2024 Active Allopurinol 300 MG Oral Tablet (Zyloprim)Indication s:Hyperuricemia TAKE 1 TABLET BY MOUTH IN THE MORNING 90 Tablet 1 05/28/2024 Active documented as of this encounter (statuses as of 05/30/2024) Active Problems Problem Noted Date Diagnosed Date 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 02/24/2024 Type 2 diabetes mellitus with hyperglycemia 08/23 Diabetes mellitus without complication COPD, group C, by GOLD 2017 classification [...] as of this encounter (statuses as of 05/30/2024) Resolved Problems Problem Noted Date Diagnosed Date [...] as of this encounter (statuses as of 05/30/2024) Immunizations Name Administration Dates Next Due COVID-19 [...] No 11/24/2022 documented as of this encounter Plan of Treatment Upcoming Encounters Date Type Department Care Team (Late st Contact Info) Description 07/04/2024 11:40 AM EDT Office Visit Family Practice [address] [phone] Tho Hurley MD [address] [place] [address] 11/04/2024 10:00 AM EST Telemedicine Sleep Disorders Ctr [facility] [address] [place] [phone] Estefania Nix DO [address] [place] [address] 12/06/2024 4:40 PM EST Office Visit Dermatology [address] [phone] Miah Maciel PA-C [address] [place] [address] Pending Results Name Type Priority Associated Diagnoses Date /Time CRP (INFLAMMATORY MARKER) Lab Routine Pre-op testing 05/30/2024 11:01 AM EDT CBC WITH WBC DIFFERENTIAL Lab Routine Pre-op testing 05/30/2024 11:01 AM EDT COMPREHENSIVE METABOLIC PANEL Lab Routine Pre-op testing 05/30/2024 11:01 AM EDT ERYTHROCYTE SEDIMENTATION RATE (ESR) Lab Routine Pre-op testing 05/30/2024 11:01 AM EDT HEMOGLOBIN A1C Lab Routine Pre-op testing 05/30/2024 11:01 AM EDT APTT Lab Routine Pre-op testing 05/30/2024 11:01 AM EDT QUANTIFERON TB GOLD PLUS Lab Routine Psoriasis KP (keratosis pilaris) 05/30/2024 11:01 AM EDT CBC Lab Routine Pre-op testing 05/30/2024 11:01 AM EDT DIFFERENTIAL, AUTOMATED Lab Routine Pre-op testing 05/30/2024 11:01 AM EDT PT INR Lab Routine Pre-op testing 05/30/2024 11:01 AM EDT Scheduled Procedures Name Priority Associated Diagnoses Date/Ti me COLONOSCOPY FLEXIBLE PROXIMA L DIAGNOSTIC Recall Special screening for malignant neoplasm Health Maintenance Due Date Last Done Comments Hepatitis B Vaccine (1 of 3 - 19+ 3-dose series) 1987 Cologuard 2013 Fecal Occult Blood Test 2013 Sigmoidoscopy 2013 Zoster Vaccines (1 of 2) 2018 Depression Screening 06/23/2020 06/23/2019 DISCUSS TOBACCO CESSATION (REFER TO SMARTSET #3291) 05/02/2022 05/02/2021 COVID-19 Vaccine ( season) 2023 08/06/2022, 04/10/2022, 10/03/2021, Additional history exists HbA1c 07/04/2024 01/04/2024, 07/24, 01/02/2023, Additional history exists Influenza Vaccine (FLU shot) (#1) 2024 08/05/2023, 08/06/2022, 08/06/2022, Additional history exists Albumin/Creatinine Ratio 09/23/2024 09/23/2023 Diabetic Foot Exam 01/04/2025 01/04/2024 Diabetic Eye Exam 01/15/2025 01/15/2024, 01/15/2024 Mammogram 03/25/2025 03/25/2024, 0501/2024, 03/23/2023, Additional history exists GFR 05/11/2025 05/11/2024, 12/24, 08/05/2023, Additional history exists O2 ASSESSMENT COMPLETED IN PAST YEAR FOR COPD 05/11/2025 05/11/2024 DTaP,Tdap,and Td Vaccines (2 - Td or [...] 2033 12/23/2018, 11/23/2010 Alpha-1 Antitrypsin Completed 05/13/2021 HPV (Gardasil) Vaccine Aged Out No lo nger eligible based on patient's age to complete this topic MENINGOCOCCAL (MENACTRA/MENVEO) Aged Out No longer eligible based on patient's age to complete this topic documented as of this encounter Medical Devices Not on filedocumented as of this encounter Visit Diagnoses Diagnosis Pre-op testing Preoperative examination, unspecified Psoriasis Other psoriasis KP (keratosis pilaris) Other specified congenital anomaly of skin documented in this encounter Advance Directives * Full Code (Latest Code Status on File) Date Activated Date Inactivated Comments 11/24/2022 10:23 PM 11/26/2022 6:37 PM This order re flects the patients wishes and were consensually agreed upon. Question Answer Comments Discussion of Advance Directives occurred with: Patient Does the patient have a Living Will? No Does the patient have Health Care Power of Attor jodi? No Care Teams Primary School Teacher Relationship Specialty Start Date End Date Tho Hurley MD [address] [place] [phone] PCP - General Family Medicine 10/10/14 documented as of this encounter
--- OUTSIDE RECORDS SUMMARY | 2024-06-28 05:41 | External Medical Summary | Summary of Care ---
Author Name Unknown Organization [facility] Address [address] [place] [address] Phone [phone] Care Team Providers Care Chiller Technician Name Role Phone Tho Hurley MD Primary Care Provider [phone] Reason for Visit * Reason Onset Date Comments Medication Refill 06/14/2024 Encounter Details Date Type Department Care Team ([facility] st Contact Info) Description 06/14/2024 Refill Dermatology [facility] [address] [facility] [place] [phone] Miah Garzon PA-C [address] [place] [address] Allergies Active Allergy Reactions Criticality [...] as of this encounter (statuses as of 06/14/2024) Medications Medication Sig Dispensed Refills Start Date End Date Status Famotidine 20 MG Oral Tablet Take 2 Tablets by mouth in the morning. Active ProAir HFA 108 (90 Base) MCG/ACT Inhalation Aerosol Solution Inhale 2 Puffs by mouth every 4 hours as needed for Wheezing. 36 g 2 09/25/2020 Active Excedrin Extra Strength 250-250-65 MG Oral Tablet (Aspirin-Acetaminop hen-Caffeine) Take 1 Tablet by mouth every 6 hours as needed for Pain, Moderate or Headache. Active CPAP every night at bedtime . Active Fluticasone-Salmete rol 250-50 MCG/ACT Inhalation Aerosol Powder Breath Activated (Advair Diskus)Indications: Moderate persistent asthma with acute exacerbation Inhale 1 Puff by mouth in the morning and 1 Puff before bedtime. 60 Each 5 12/16/2022 Active OneTouch Verio In Vitro Strip (Glucose Blood)Indications:T ype 2 diabetes mellitus with hemoglobin A1c goal [...] 08/07/2023 Active hydrOXYzine HCl 25 MG Oral TabletIndications:A nxiety Take 1 Tablet by mouth every 6 hours as needed for Anxiety. 40 Tablet 2 09/23/2023 Active Cetirizine HCl 10 MG Oral Capsule Take 2 Capsules by mouth every evening. Active buPROPion HCl ER (SR) 150 MG Oral Tablet Extended Release 12 Hour (Wellbutrin SR)Indications:Anxi ety and depression Take 1 Tablet by mouth in the morning and 1 Tablet before bedtime. 60 Tablet 5 01/04/2024 Active Additional Information Patient not taking.Reported on 05/11/2024 Ozempic (0.25 or 0.5 MG/DOSE) 2 MG/3ML Solution Pen-injector (Semaglutide(0.25 or 0.5MG/DOS))Indicati ons:Type 2 diabetes mellitus with hemoglobin A1c goal of less than 7.0% (HCC) Inject 0.25mg under the skin once weekly for 4 weeks then increase to 0.5mg under the skin once weekly thereafter 3 mL 1 01/06/2024 Active methylPREDNISolone 4 MG Oral Tablet Therapy Pack (Medrol Dosepack)Indication s:Primary osteoarthritis of both knees follow package directions 21 Tablet 01/12/2024 Active Additional Information Patient not taking.Reported on 05/11/2024 metFORMIN HCl 500 MG Oral Tablet (Glucophage)Indicat ions:Type 2 diabetes mellitus with hemoglobin A1c goal of less than 8.0% (HCC) TAKE 1 TABLET BY MOUTH TWICE DAILY WITH MORNING MEAL AND WITH EVENING MEALS 180 Tablet 3 01/23/2024 Active hydroCHLOROthiazide 25 MG Oral Tablet (Hydrodiuril)Indica tions:Hypertension goal BP (blood pressure) < 140/90 TAKE 1 TABLET BY MOUTH ONCE DAILY IN THE MORNING 90 Tablet 3 03/28/2024 Active amLODIPine Besylate 10 MG Oral Tablet (Norvasc)Indication s:HTN, goal below 140/90 TAKE 1 TABLET BY MOUTH IN THE MORNING 90 Tablet 3 04/21/2024 Active Mometasone Furoate 0.1 % External Solution (Elocon) Apply to the ears twice daily for 1-2 weeks as needed 60 mL 2 05/12/2024 Active Furosemide 20 MG Oral Tablet (Lasix)Indications: Edema, unspecified type One tablet once ad ay as needed for edema 30 Tablet 1 05/22/2024 Active Allopurinol 300 MG Oral Tablet (Zyloprim)Indicatio ns:Hyperuricemia TAKE 1 TABLET BY MOUTH IN THE MORNING 90 Tablet 1 05/28/2024 Active buPROPion HCl ER (XL) 150 MG Oral Tablet Extended Release 24 Hour (Wellbutrin XL) TAKE 1 TABLET BY MOUTH ONCE DAILY 90 Tablet 1 06/02/2024 Active Tremfya 100 MG/ML Subcutaneous Solution Prefilled Syringe (Guselkumab) Inject 100 mg under the skin every 8 weeks. 1 mL 2 06/14/2024 Active Tremfya 100 MG/ML Subcutaneous Solution Prefilled Syringe (Guselkumab) Inject 100 mg under the skin every 8 weeks. 1 mL 2 01/18/2024 4 Discontinu ed(Refill) documented as of this encounter (statuses as of 06/14/2024) Active Problems Problem Noted Date Diagnosed Date [...] as of this encounter (statuses as of 06/14/2024) Resolved Problems Problem Noted Date Diagnosed Date [...] as of this encounter (statuses as of 06/14/2024) Immunizations Name Administration Dates Next Due COVID-19 [...] encounter Miscellaneous Notes * Telephone Encounter - Brady Sow RPh - 06/14/2024 12:01 PM EDTSigned Prescriptions: Disp Refills Tremfya 100 MG/ML Subcutaneous Solution Pr*1 mL 2 Sig: Inject 100 mg under the skin every 8 weeks. Authorizing Provider: MIAH GARZON Ordering User: BRADY SOW * Telephone Encounter - Claritza Rolon wrecker operator - 06/14/2024 11:57 AM EDT Patient is up to date for office visits. Pending Prescriptions: Disp Refills Tremfya 100 MG/ML Subcutaneous Solution P*1 mL 2 Sig: Inject 100 mg under the skin every 8 weeks. Last Visit: 05/12/2024 (in office), 11/10/2023 (telemedicine) Next Visit: 12/06/2024 If no future appointments scheduled, and last appointment is greater than a year ago, please schedule patient for a follow-up appointment Last date the medication was ordered: 01/18/2024 Pharmacy: [id number] [id number] [facility] Is this request for a controlled substance?No it is not controlled. Urine Drug Screen:No results found for this or any previous visit. Patient Phone Numbers Labs: Lab Results Component Value Date/Time CREAT 1.0 05/30/2024 11:01 AM CREAT 1.0 08/16/2020 09:55 AM POTASSIUM 3.4 (L) 05/30/2024 11:01 AM POTASSIUM 4.5 08/16/2020 09:55 AM TSH 1.84 11/25/2021 01:18 PM TSH 2.58 06/16/2019 10:37 AM LDLCALC 101 01/04/2024 10:55 AM LDLCALC 107 08/19/2018 10:24 AM LDLDIRECT NOT APPLICABLE 05/23/2015 07:24 AM ALT 20 05/30/2024 11:01 AM ALT 13 08/16/2020 09:55 AM HGBA1C 6.0 (H) 05/30/2024 11:01 AM HGBA1C 6.0 (H) 06/16/2019 10:37 AM documented in this encounter Plan of Treatment Upcoming Encounters Date Type Department Care Team (Late st Contact Info) Description 07/04/2024 11:40 AM EDT Office Visit Family [address] [phone] Tho Hurley MD [address] [place] [address] 11/04/2024 10:00 AM EST Telemedicine Sleep Disorders Ctr [facility] [address] [facility] [place] [phone] Estefania Nix, [address] [facility] [place] [address] 12/06/2024 4:40 PM EST Office Visit Dermatology [address] [phone] Miah Garzon PA-C [address] [place] [address] Scheduled Procedures Name Priority Associated Diagnoses Date/Ti [...] 2023 08/06/2022, 04/10/2022, 10/03/2021, Additional history exists *COPD SEVERITY VERIFIED BY PFT 06/05/2024 *CXR OR CT FOR COPD EVER 06/05/2024 Influenza Vaccine (FLU shot) (#1) 2024 08/05/2023, 08/06/2022, 08/06/2022, Additional history exists Albumin/Creatinine Ratio 09/23/2024 09/23/2023 HbA1c 11/30/2024 05/30/2024, 12/24, 08/05/2023, Additional history exists Diabetic Foot Exam 01/04/2025 01/04/2024 Diabetic Eye Exam 01/15/2025 01/15/2024, 01/15/2024 Mammogram 03/25/2025 03/25/2024, 05/0 01/2024, 03/23/2023, Additional history exists O2 ASSESSMENT COMPLETED IN PAST YEAR FOR COPD 05/11/2025 05/11/2024 GFR 05/30/2025 05/30/2024, 04/23, 01/04/2024, Additional history exists DTaP,Tdap,and Td Vaccines (2 - Td or [...] filedocumented as of this encounter Advance Directives * Full Code [...] Power of Attor jodi? No Care Teams Chiller Technician Relationship Specialty Start Date End Date Tho Hurley MD [address] [place] [phone] PCP - General Family Medicine 10/10/14 documented as of this encounter
--- OUTSIDE RECORDS SUMMARY | 2024-06-28 05:41 | External Medical Summary | Summary of Care ---
Author Name Unknown Organization [facility] Address [address] [place] [address] Phone [phone] Care Team Providers Care Patient Access Associate Name Role Phone Tho Mcgee MD Primary Care Provider [phone] Reason for Visit * Reason Comments eRx-Medication Refill Encounter Details Date Type Department Care Team ([facility] st Contact Info) Description 06/01/2024 Refill Family [facility] [address] [place] [address] Tho Mcgee MD [address] [place] [address] Allergies Active Allergy Reactions Criticality [...] as of this encounter (statuses as of 06/02/2024) Medications Medication Sig Dispensed Refills Start Date End Date Status Famotidine 20 MG Oral Tablet Take 2 Tablets by mouth in the morning. Active ProAir HFA 108 (90 Base) MCG/ACT Inhalation Aerosol Solution Inhale 2 Puffs by mouth every 4 hours as needed for Wheezing. 36 g 2 0 Active Excedrin Extra Strength 250-250-65 MG Oral [...] 1 Puff before bedtime. 60 Each 5 3 Active OneTouch Verio In Vitro Strip (Glucose Blood)Indications:T ype 2 diabetes mellitus with hemoglobin A1c goal of less than 8.0% (HCC) Use up to 1 times a day E11.9. type 2 Diabetes Mellitus 100 Strip 11 3 Active OneTouch Verio w/Device KitIndications:Type 2 diabetes mellitus with hemoglobin A1c goal of less than 8.0% (HCC) Use up to 1 times a day E11.9. type 2 Diabetes Mellitus 1 Kit 3 Active traMADol HCl 50 MG Oral Tablet (Ultram) Take 1 Tablet by mouth every 6 hours as needed for Pain, Severe. 20 Tablet 3 Active hydrOXYzine HCl 25 MG Oral TabletIndications:A nxiety Take 1 Tablet by mouth every 6 hours as needed for Anxiety. 40 Tablet 2 3 Active Cetirizine HCl 10 MG Oral Capsule Take 2 Capsules by mouth every evening. Active buPROPion HCl ER (SR) 150 MG Oral Tablet Extended Release 12 Hour (Wellbutrin SR)Indications:Anxi ety and depression Take 1 Tablet by mouth in the morning and 1 Tablet before bedtime. 60 Tablet 5 4 Active Additional Information Patient not taking.Reported on 05/11/2024 Ozempic (0.25 or 0.5 MG/DOSE) 2 MG/3ML Solution Pen-injector (Semaglutide(0.25 or 0.5MG/DOS))Indicati ons:Type 2 diabetes mellitus with hemoglobin A1c goal of less than 7.0% (HCC) Inject 0.25mg under the skin once weekly for 4 weeks then increase to 0.5mg under the skin once weekly thereafter 3 mL 1 4 Active methylPREDNISolone 4 MG Oral Tablet Therapy Pack (Medrol Dosepack)Indication s:Primary osteoarthritis of both knees follow package directions 21 Tablet 4 Active Additional Information Patient not taking.Reported on 05/11/2024 Tremfya 100 MG/ML Subcutaneous Solution Prefilled Syringe (Guselkumab) Inject 100 mg under the skin every 8 weeks. 1 mL 2 4 Active metFORMIN HCl 500 MG Oral Tablet (Glucophage)Indicat ions:Type 2 diabetes mellitus with hemoglobin A1c goal of less than 8.0% (HCC) TAKE 1 TABLET BY MOUTH TWICE DAILY WITH MORNING MEAL AND WITH EVENING MEALS 180 Tablet 3 4 Active hydroCHLOROthiazide 25 MG Oral Tablet (Hydrodiuril)Indica tions:Hypertension goal BP (blood pressure) < 140/90 TAKE 1 TABLET BY MOUTH ONCE DAILY IN THE MORNING 90 Tablet 3 4 Active amLODIPine Besylate 10 MG Oral Tablet (Norvasc)Indication s:HTN, goal below 140/90 TAKE 1 TABLET BY MOUTH IN THE MORNING 90 Tablet 3 4 Active Mometasone Furoate 0.1 % External Solution (Elocon) Apply to the ears twice daily for 1-2 weeks as needed 60 mL 2 4 Active Furosemide 20 MG Oral Tablet (Lasix)Indications: Edema, unspecified type One tablet once ad ay as needed for edema 30 Tablet 1 4 Active Allopurinol 300 MG Oral Tablet (Zyloprim)Indicatio ns:Hyperuricemia TAKE 1 TABLET BY MOUTH IN THE MORNING 90 Tablet 1 4 Active buPROPion HCl ER (XL) 150 MG Oral Tablet Extended Release 24 Hour (Wellbutrin XL) TAKE 1 TABLET BY MOUTH ONCE DAILY 90 Tablet 1 4 Active buPROPion HCl ER (XL) 150 MG Oral Tablet Extended Release 24 Hour (Wellbutrin XL) TAKE 1 TABLET BY MOUTH ONCE DAILY 90 Tablet 4 06/02/20 24 Discontinued documented as of this encounter (statuses as of 06/02/2024) Active Problems Problem Noted Date Diagnosed Date [...] as of this encounter (statuses as of 06/02/2024) Resolved Problems Problem Noted Date Diagnosed Date [...] as of this encounter (statuses as of 06/02/2024) Immunizations Name Administration Dates Next Due COVID-19 [...] encounter Miscellaneous Notes * Telephone Encounter - Manuelito Nguyen [facility] - 06/02/2024 1:29 PM EDT Signed Prescriptions: Disp Refills buPROPion HCl ER (XL) 150 MG Oral Tablet E*90 Tab*1 Sig: TAKE 1 TABLET BY MOUTH ONCE DAILYAuthorizing Provider: Amy MCGEE User: MANUELITO NGUYEN----- Electronically signed by Manuelito Nguyen [facility] at 06/02/2024 1:29 PM EDT documented in this encounter Plan of Treatment Upcoming Encounters Date Type Department Care Team ([facility] st Contact Info) Description 07/04/2024 11:40 AM EDT Office Visit Family [address] [phone] Tho Mcgee MD [address] [place] [address] [place] [address] 11/04/2024 10:00 AM EST Telemedicine Sleep Disorders Ctr [facility] [address] [facility] [place] [phone] Estefania Nix DO [address] [facility] [place] [address] 12/06/2024 4:40 PM EST Office Visit Dermatology [facility] [address] [place] [address] Miah Maciel PA-C [address] [place] [address] Scheduled Procedures Name Priority Associated Diagnoses Date/Ti [...] 2023 08/06/2022, 04/10/2022, 10/03/2021, Additional history exists Influenza Vaccine (FLU shot) (#1) 2024 08/05/2023, 08/06/2022, 08/06/2022, Additional history exists Albumin/Creatinine Ratio 09/23/2024 09/23/2023 HbA1c 11/30/2024 05/30/2024, 12/24, 08/05/2023, Additional history exists Diabetic Foot Exam 01/04/2025 01/04/2024 Diabetic Eye Exam 01/15/2025 01/15/2024, 01/15/2024 Mammogram 03/25/2025 03/25/2024, 05/01/2024, 03/23/2023, Additional history exists O2 ASSESSMENT COMPLETED [...] Power of Attor jodi? No Care Teams Patient Access Associate Relationship Specialty Start Date End Date Tho Mcgee MD [address] [place] [phone] PCP - General Family Medicine 10/10/14 documented as of this encounter
--- OUTSIDE RECORDS SUMMARY | 2024-06-28 05:42 | External Medical Summary | Summary of Care ---
Author Name Unknown Organization [facility] Address [address] [place] [address] Phone [phone] Care Team Providers Care Service Developer Name Role Phone Tho Mcgee MD Primary Care Provider [phone] Reason for Visit * Reason Comments Psoriasis Patient presents tod ay for 6 month follow up for psoriasis. Has been using hydrocortisone on lower legs. Ears are very dry. Would like refills for the drops for in ears. Encounter Details Date Type Department Care Team ([facility] Contact Info) Description 05/12/2024 8:20 AM EDT Office Visit Dermatology [facility] [address] [place] [address] Miah Maciel PA-C [address] [place] [address] [phone] Psoriasis*; KP (keratosis pilaris) Allergies Active Allergy Reactions [...] as of this encounter (statuses as of 05/12/2024) Medications Medication Sig Dispensed Refills Start Date [...] 2 Capsules by mouth every evening. Active Allopurinol 300 MG Oral Tablet (Zyloprim)Indication [...] as needed 60 mL 2 05/12/2024 Active documented as of this encounter (statuses as of 05/12/2024) Active Problems Problem Noted Date Diagnosed Date [...] as of this encounter (statuses as of 05/12/2024) Resolved Problems Problem Noted Date Diagnosed Date [...] as of this encounter (statuses as of 05/12/2024) Immunizations Name Administration Dates Next Due COVID-19 [...] as of this encounter Progress Notes * Miah Maciel PA-C - 05/12/2024 7:59 AM EDT SUBJECTIVE: History of Present Illness: Palak Horan is a 53 year old female seen today for follow up of psoriasis/HS. Patient notes overall her psoriasis has been well controlled since starting Tremfya. Notes her ears and legs will be scaly/dry. 11/10/2023 (telemedicine) Previously attempted treatments include:Tremfya, NbUVB, TMC, MTX, Mometasone, Clobetasol, Betamethasone, Protopic REVIEW OF SYSTEMS: SKIN: No other new or changing moles. HEME/LYMPH: No new or enlarging lumps or bumps. CONSTITUTIONAL: No nausea, vomiting, fevers, chills, diarrhea. No recent unintended weight loss, night sweats, appetite or malaise. SKIN CANCER HX: none MEDICA TIONS: Current Outpatient Medications Medication Sig Dispense Refill Famotidine 20 MG Oral Tablet Take 2 Tablets by mouth in the morning. ProAir HFA 108 (90 Base) MCG/ACT Inhalation Aerosol Solution Inhale 2 Puffs by mouth every 4 hours as needed for Wheezing. 36 g 2 Excedrin Extra Strength 250-250-65 MG Oral Tablet (Fvufhgr-Epxtgrqpepsmy-Dmphumcw) Take 1 Tablet bymouth every 6 hours as needed for Pain, Moderate or Headache. CPAP every night at bedtime . Fluticasone-Salmeterol 250-50 MCG/ACT Inhalation Aerosol Powder Breath Activated (Advair Diskus) Inhale 1 Puff by mouth in the morning and 1 Puff before bedtime. 60 Each 5 [employer] Verio In Vitro Strip (Glucose Blood) Use up to 1 times a day E11.9. type 2 Diabetes Mellitus 100 Strip 11 OneTouch Verio w/Device Kit Use up to 1 times a day E11.9. type 2 Diabetes Mellitus 1 Kit 0 traMADol HCl 50 MG Oral Tablet (Ultram) [...] the morning and 1 Tablet before bedtime. (Patient not taking: Reported on 05/11/2024) 60 Tablet 5 Ozempic (0.25 or 0.5 MG/DOSE) 2 MG/3ML Solution Pen-injector (Semaglutide(0.25 or 0.5MG/DOS)) Inject 0.25mg under the skin once weekly for 4 weeks then increase to 0.5mg under the skin once weekly thereafter 3 mL 1 methylPREDNISolone 4 MG Oral Tablet Therapy Pack (Medrol Dosepack) follow package directions (Patient not taking: Reported on 05/11/2024) 21 Tablet 0 Tremfya 100 MG/ML Subcutaneous Solution Prefilled Syringe (Guselkumab) Inject 100 mg under the skinevery 8 weeks. 1 mL 2 metFORMIN HCl 500 MG Oral Tablet (Glucophage) TAKE 1 TABLET BY MOUTH TWICE DAILY WITH MORNING MEAL AND WITH EVENING MEALS 180 Tablet 3 buPROPion HCl ER (XL) 150 MG Oral Tablet Extended Release 24 Hour (Wellbutrin XL) TAKE 1 TABLET BY MOUTH ONCE DAILY 90 Tablet 0 hydroCHLOROthiazide 25 MG Oral Tablet (Hydrodiuril) TAKE 1 TABLET BY MOUTH ONCE DAILY IN THE MORNING 90 Tablet 3 amLODIPine Besylate 10 MG Oral Tablet (Norvasc) TAKE 1 TABLET BY MOUTH IN THE MORNING 90 Tablet 3 No current facility-administered medications for this visit. ALLERG IES: Quinolones, Avelox [moxifloxacin hcl in nacl], Cephalosporins, Clindamycin, Doxycycline, Erythromycin, Flagyl [metronidazole], Keflex [cephalexin], Latex, Montelukast, Penicillins, Phenobarbital, Rocephin [ceftriaxone], and Sulfa antibiotics OBJECT CALEB: GEN: Healthy, alert, no distress, appears oriented, pleasant, and cooperative. SKIN: Detailed exam of face including lids and lips, neck, and bilateral lower ext. (leg, foot, toes) completed and are normal except: A. Ears with erythema and mild scaling B. Bilateral lower legs with follicular based pink papules ASSESS MENT/PLAN: A. Psoriasis BSA: 0-1%, Special Site: None; Status: overall remains well controlled -will re-check labs- CBC, CMP, and Quantiferon TB gold plus in Dec. -refill for mometasone solution sent. Recommended holding use of earrings to see if scaling/rednessimproves. Moisturize daily. -will continue Tremfya 100 mg subcutaneously every 8 weeks. Patient aware of side effects of Tremfya including increased risk of infections, injection site reaction, etc. Patient also advised against receiving live vaccinations while on medication. If live vaccination is required discontinuation of medication is necessary. Up to date with covid vaccine/boost er -call/send MyG with questions/concerns B. Keratosis pilaris -discussed natural course, expected outcomes and tx options. -can apply HC as needed and samples for Amlactin and Keralyt -call/send a message with questions/concerns or if not improving Follow-up: 3 months or sooner PRN Patient alone today. Photo(s) taken, pt verbally consented to having photo(s) taken. Contact patient via cell phone Ok to leave results on message: Yes Patient Phone Numbers Applicable photos (if any) and chart reviewed by Dr. Souleymane Alas Presumed diagnoses, expected natural histories, and management options discussed with the patient at length. Questions were addressed and anticipatory guidance provided. They were instructed to contact me if additional questions, concerns, or problems develop in the interim. -There were no barriers to learning and no other pain was related to today's visit. The patient and/or person accompanying patient demonstrates understanding of the visit and treatment. Smiley Maciel PA-C 05/12/2024 8:00 AM Ref: SELF[[id number]] NO STREET ADDRESS AVAILABLE None (office) None (fax) PCP: THO MCGEE [address] [place], [place] [address] [address] [phone] documented in this encounter Nursing Notes * Megan Hernandez LPN - 05/12/2024 8:09 AM EDT Patient identified by name and date. Chief Complaint Patient presents with Psoriasis Patient presents today for 6 month follow up for psoriasis. Has been using hydrocortisone on lower legs. Ears are very dry. Would like refills for the drops for in ears. documented in this encounter Plan of Treatment Upcoming Encounters Date Type Department Care Team ([facility] st Contact Info) Description 07/04/2024 11:40 AM EDT Office Visit Family [address] [phone] Tho Mcgee MD [address] [place] [address] 11/04/2024 10:00 AM EST Telemedicine Sleep Disorders Ctr [facility] [address] [place] [phone] Estefania Nix DO [address] [place] [address] 12/06/2024 4:40 PM EST Office Visit Dermatology [address] [phone] Miah Maciel PA-C [address] [place] [address] Scheduled Procedures Name Priority Associated Diagnoses Date/Ti [...] TO SMARTSET #3291) 05/02/2022 05/02/2021 COVID-19 Vaccine (2022- season) 2023 08/06/2022, 04/10/2022, 10/03/2021, Additional history exists HbA1c 07/04/2024 01/04/2024, 07/24, 01/02/2023, Additional history exists Albumin/Creatinine Ratio 09/23/2024 09/23/2023 Diabetic Foot Exam 01/04/2025 01/04/2024 Diabetic Eye Exam 01/15/2025 01/15/2024, 01/15/2024 Mammogram 03/25/2025 03/25/2024, 05/0 11/2022, 03/23/2023, Additional history exists GFR 05/11/2025 05/11/2024, [...] Procedure Name Priority Date/Time Associated Diagnosis Comments DERM EXAM - DERM (IMAGES ONLY, NO REPORT) Routine 05/12/2024 8:01 AM EDT documented in this encounter Results * DERM EXAM - DERM (IMAGES ONLY, NO REPORT) (05/12/2024 8:01 AM EDT) Narrative Scheduling, Silent - 05/12/2024 8:01 AM EDT This is an imaging study not interpreted or resulted by a [employer] or [employer] contracted radiologist. Miah Maciel PA-C RADIOLOGY ([facility]) documented in this encounter Visit Diagnoses Diagnosis Psoriasis- Primary Other psoriasis KP (keratosis pilaris) Other specified [...] Power of Attor jodi? No Care Teams Service Developer Relationship Specialty Start Date End Date Tho Mcgee MD [address] [place] [address] PCP - General Family Medicine 10/10/14 documented as of this encounter
--- OUTSIDE RECORDS SUMMARY | 2024-06-28 05:42 | External Medical Summary ---
Author Name Unknown Address Unknown Organization K01:[facility] - [address] [place] [address] Laboratory Report Ordering Provider Test Date Status ROSEANN JONES 05/30/2024 11:01:02 Final Observation Date Value Abnormality Reference (Units ) Status HbA1C 05/30/2024 11:01:02 6.0 Above high normal 4. 0-5.6 (%) Final The use of HbA1c to monitor glycemic status is based on normal hemoglobin and HbA composition. This test should not be used in patients with abnormal hemoglobin that affects the half life of the red blood cell or the in vivo glycation rates. Glucose, estimated average 05/30/2024 11:01:02 126 Above high normal <126 (mg/dL) Eduard ziegler Performing Location [facility] - [address] [place] [address]
--- OUTSIDE RECORDS SUMMARY | 2024-06-28 05:42 | External Medical Summary | Summary of Care ---
Author Name Unknown Organization [facility] Address [address] [place] [address] Phone [phone] Care Team Providers Care Manager Statistical Name Role Phone Tho Mcgee MD Primary Care Provider [phone] Reason for Visit * Reason Comments Psoriasis Patient presents tod ay for 6 month follow up for psoriasis. Has been using hydrocortisone on lower legs. Ears are very dry. Would like refills for the drops for in ears. Encounter Details Date Type Department Care Team ([facility] Contact Info) Description 05/12/2024 8:20 AM EDT Office Visit Dermatology [facility] [address] [place] [address] Miah Maciel PA-C [address] [place] [address] [phone] Psoriasis*; KP (keratosis pilaris) Allergies Active Allergy [...] as of this encounter Progress Notes * Souleymane Alas MD - 05/12/2024 1:19 PM EDT I have seen and examined via teledermatology review of chart note and photos the patient with Miah Maciel PA-C. I have reviewed and agree with the assessment and plan. Souleymane Alas MD * Miah Maciel PA-C - 05/12/2024 7:59 [...] Excedrin Extra Strength 250-250-65 MG Oral Tablet (Mzcxgpe-Mykhuanmzbfmu-Noksivgd) Take 1 Tablet bymouth every 6 hours [...] Smiley Maciel PA-C 05/12/2024 8:00 AM Ref: SELF[[id number]] NO STREET ADDRESS AVAILABLE None (office) None (fax) PCP: THO MCGEE [address] [place] [address] [phone] documented in this encounter Nursing Notes * Megan Hernandez LPN - 05/12/2024 8:09 AM EDT Patient identified by name and date. Chief Complaint Patient presents with Psoriasis Patient presents today for 6 month follow up for psoriasis. Has been using hydrocortisone on lower legs. Ears are very dry. Would like refills for the drops for in ears. documented in this encounter Miscellaneous Notes * Addendum Note - Miah Maciel PA-C - 05/12/2024 10:41 AM EDTAddended by: MIAH MACIEL on: 05/12/2024 10:41 AM Modules accepted: Orders documented in this encounter Plan of Treatment Upcoming Encounters Date Type Department Care Team ([facility] Contact Info) Description 07/04/2024 11:40 AM EDT Office Visit Family Practice [facility] [address] [place] [phone] Tho Mcgee MD [address] [place] [address] 11/04/2024 10:00 AM EST Telemedicine [facility] [address] [place] [phone] Estefania Nix, DO [address] [place] [address] 12/06/2024 4:40 PM EST Office Visit Dermatology [facility] [address] [place] [address] Miah Maciel PA-C [address] [place] [address] Scheduled Orders Name Type Priority Associated Diagnoses Orde r Schedule COMPREHENSIVE METABOLIC PANEL Lab Routine Psoriasis KP (keratosis pilaris) Expected: 05/12/2024, Expires: 05/12/2025 QUANTIFERON TB GOLD PLUS Lab Routine Psoriasis KP (keratosis pilaris) Expected: 05/12/2024, Expires: 05/12/2025 CBC WITH WBC DIFFERENTIAL Lab Routine Psoriasis KP (keratosis pilaris) Expected: 05/12/2024, Expires: 05/12/2025 Scheduled Procedures Name Priority Associated Diagnoses Date/Ti me COLONOSCOPY FLEXIBLE PROXIMA L DIAGNOSTIC Recall Special screening for malignant neoplasm Health Maintenance Due Date Last Done Comments Hepatitis B (1 of 3 - 19+ 3-dose series) 1987 Cologuard 2013 Fecal Occult Blood Test 2013 Sigmoidoscopy 2013 Zoster Vaccines (1 of 2) 2018 Depression Screening 06/23/2020 06/23/2019 DISCUSS TOBACCO CESSATION (REFER TO SMARTSET #8501) 05/02/2022 05/02/2021 COVID-19 Vaccine ( season) 2023 08/06/2022, 04/10/2022, 10/03/2021, Additional history exists HbA1c 07/04/2024 01/04/2024, 07/24, 01/02/2023, Additional history exists Albumin/Creatinine Ratio 09/23/2024 09/23/2023 Diabetic Foot Exam 01/04/2025 01/04/2024 Diabetic Eye Exam 01/15/2025 01/15/2024, 01/15/2024 Mammogram 03/25/2025 03/25/2024, 0511/2022, 03/23/2023, Additional history exists GFR 05/11/2025 05/11/2024, [...] study not interpreted or resulted by a [facility] or [employer] contracted radiologist. Miah Maciel PA-C RADIOLOGY ([facility]) documented in this encounter Visit Diagnoses Diagnosis [...] Power of Attor jodi? No Care Teams Manager Statistical Relationship Specialty Start Date End Date Tho Mcgee MD [address] [place] [address] PCP - General Family Medicine 10/10/14 documented as of this encounter
--- OUTSIDE RECORDS SUMMARY | 2024-06-28 05:42 | External Medical Summary ---
Author Name Unknown Address Unknown Organization K01:[facility] - [address] [place] [address] Laboratory Report Ordering Provider Test Date Status ROSEANN JONES 05/30/2024 11:01:02 Final Observation Date Value Abnormality Reference (Units ) Status WBC, Total 05/30/2024 11:01:02 11.01 Above high normal 4.00-10.80 (K/uL) Final RBC 05/30/2024 11:01:02 4.75 3.85-5.15 (M/uL) Final Hemoglobin 05/30/2024 11:01:02 13.2 12.0-15.3 (g/dL) Final HCT 05/30/2024 11:01:02 42.1 36.0-45.2 (%) Final MCV 05/30/2024 11:01:02 88.6 81.5-97.5 (fL) Final MCH 05/30/2024 11:01:02 27.8 27.0-34.0 (pg) Final MCHC 05/30/2024 11:01:02 31.4 32.0-36.0 (g/dL) Final RDW 05/30/2024 11:01:02 14.8 11.5-15.5 (%) Final Platelets 05/30/2024 11:01:02 414 Above high normal 140-400 (K/uL) Final MPV 05/30/2024 11:01:02 11.0 6.6-11.1 (fL) Final Nucleated erythrocytes/100 leukocytes [Ratio] in Blood by Automated count 05/30/2024 11:01:02 0 <=0 (/100 WBCs) Final Performing Location [facility] - [address] [place] [address]
--- OUTSIDE RECORDS SUMMARY | 2024-06-28 05:42 | External Medical Summary | Summary of Care ---
Author Name Unknown Organization [facility] Address [address] [place] [address] Phone [phone] Care Team Providers Care Imaging Center Manager Name Role Phone Tho Hurley MD Primary Care Provider [phone] Encounter Details Date Type Department Care Team (Latest Contact Info) Description 05/12/2024 8:01 AM EDT - 05/12/2024 11:59 PM EDT Hospital Encounter Radiology Film File [address] [place], [place] [phone] Arrived Discharge Disposition: Home - Self Care Allergies Active Allergy Reactions Criticality Noted Date [...] as of this encounter (statuses as of 05/13/2024) Medications Medication Sig Dispensed Refills Start Date [...] as of this encounter (statuses as of 05/13/2024) Active Problems Problem Noted Date Diagnosed Date [...] as of this encounter (statuses as of 05/13/2024) Resolved Problems Problem Noted Date Diagnosed Date [...] as of this encounter (statuses as of 05/13/2024) Immunizations Name Administration Dates Next Due COVID-19 [...] Upcoming Encounters Date Type Department Care Team ([facility] Contact Info) Description 07/04/2024 11:40 AM EDT Office Visit Family Practice [address] [phone] Tho Hurley MD [address] [place] [address] 11/04/2024 10:00 AM EST Telemedicine Sleep Disorders Ctr [facility] [address] [place] [phone] Estefania Nix, [address] [place] [address] 12/06/2024 4:40 PM EST Office Visit Dermatology [address] [phone] Miah Maciel PA-C [address] [place] [address] Scheduled Procedures Name Priority Associated Diagnoses Date/Ti [...] interpreted or resulted by a [facility] or [employer] contracted radiologist. Miah Maciel PA-C RADIOLOGY ([facility]) documented in this encounter Advance Directives * [...] Power of Attor jodi? No Care Teams Imaging Center Manager Relationship Specialty Start Date End Date Tho uHrley MD [address] [place] [address] PCP - General Family Medicine 10/10/14 documented as of this encounter
--- OUTSIDE RECORDS SUMMARY | 2024-06-28 05:42 | External Medical Summary | Summary of Care ---
Author Name Unknown Organization [facility] Address [address] [place] [address] Phone [phone] Care Team Providers Care Safety Teacher Name Role Phone Tho Mcgee MD Primary Care Provider [phone] Reason for Visit * Reason Comments Psoriasis Patient presents tod ay for 6 month follow up for psoriasis. Has been using hydrocortisone on lower legs. Ears are very dry. Would like refills for the drops for in ears. Encounter Details Date Type Department Care Team ([facility] Contact Info) Description 05/12/2024 8:20 AM EDT Office Visit Dermatology [facility] [address] [place] [address] Miah Maciel PA-C [address] [place] [phone] Psoriasis*; KP (keratosis pilaris) Allergies Active Allergy [...] Excedrin Extra Strength 250-250-65 MG Oral Tablet (Aozqejv-Zmcqfqzzwlfbg-Xwuickak) Take 1 Tablet bymouth every 6 hours as needed for Pain, Moderate or Headache. CPAP every night at bedtime . Fluticasone-Salmeterol 250-50 MCG/ACT Inhalation Aerosol Powder Breath Activated (Advair Diskus) Inhale 1 Puff by mouth in the morning and 1 Puff before bedtime. 60 Each 5 [email or web address] Verio In Vitro Strip (Glucose Blood) Use [...] Smiley Maciel PA-C 05/12/2024 8:00 AM Ref: SELF[[id number]] NO STREET ADDRESS AVAILABLE None (office) None (fax) PCP: THO MCGEE [address] [place], [place] [address] [address] [phone] documented in this encounter Nursing Notes * [...] 07/04/2024 11:40 AM EDT Office Visit Family [address] [phone] Tho Mcgee MD [address] [place] [address] 11/04/2024 10:00 AM EST Telemedicine [facility] [place] [phone] Estefania Nix DO [address] [facility] [place] [address] 12/06/2024 4:40 PM EST Office Visit Dermatology [address] [phone] Miah Maciel PA-C [address] [place] [address] Scheduled Orders Name Type Priority Associated Diagnoses [...] study not interpreted or resulted by a [employer] or [employer] contracted radiologist. Miah Maciel PA-C RADIOLOGY ([facility]) documented in this encounter Visit Diagnoses [...] Power of Attor jodi? No Care Teams Safety Teacher Relationship Specialty Start Date End Date Tho Mcgee MD [address] [place] [address] PCP - General Family Medicine 10/10/14 documented as of this encounter
--- OUTSIDE RECORDS SUMMARY | 2024-06-28 05:42 | External Medical Summary ---
Author Name Unknown Address Unknown Organization K01:[facility] - [address] [place] [address] Laboratory Report Ordering Provider Test Date Status ROSEANN JONES 05/30/2024 11:01:02 Final Observation Date Value Abnormality Reference (Units ) Status CRP, low-sensitivity 05/30/2024 11:01:02 17 Above high normal <=5 (mg/L) Final Performing Location [facility] - [address] [place] [address]
--- OUTSIDE RECORDS SUMMARY | 2024-06-28 05:42 | External Medical Summary ---
Author Name Unknown Address Unknown Organization K01:[facility] [place] [address] [place] [address] Laboratory Report Ordering Provider Test Date Status ROSEANN JONSE 05/30/2024 11:01:02 Final Anticoagulation may affect t esting. Refer to [facility] Test Catalog for a list of effects. Observation Date Value Abnormality Reference (Units ) Status aPTT panel - Platelet poor plasma 05/30/2024 11:01:02 27 21-38 (seconds) Final Performing Location [facility] [place] [address] [place] [address]
--- OUTSIDE RECORDS SUMMARY | 2024-06-28 05:42 | External Medical Summary ---
Author Name Unknown Address Unknown Organization K01:[facility] [place] [address] [facility] [place] [address] Laboratory Report Ordering Provider Test Date Status ROSEANN JONES 05/30/2024 11:01:02 Final Observation Date Value Abnormality Reference (Units ) Status SYNC LEUKOCYTES IN BLOOD BY AUTOMATED COUNT 05/30/2024 11:01:02 11.01 Above high normal 4.00-10.80 (K/uL) Final Segs 05/30/2024 11:01:02 71.3 40.0-75.0 (%) Final Lymphs % 05/30/2024 11:01:02 20.3 18.0-42.0 (%) Final Monos 05/30/2024 11:01:02 6.4 1.0-11.0 (%) Final Eosinophils 05/30/2024 11:01:02 1.2 0.0-6.0 (%) Final Basos 05/30/2024 11:01:02 0.4 0.0-2.0 (%) Final Immature Granulocyte, Percent 05/30/2024 11:01:02 0.4 0.0-2.0 (%) Final Absolute Segs 05/30/2024 11:01:02 7.86 Above high normal 1.80-7.70 (K/uL) Final Lymphs, absolute 05/30/2024 11:01:02 2.23 1.00-4.80 (K/ul) Final Monos, Abs 05/30/2024 11:01:02 0.71 0.00-1.10 (K/uL) Final Eos, Abs 05/30/2024 11:01:02 0.13 0.00-0.70 (K/uL) Final Basos, Abs 05/30/2024 11:01:02 0.04 0.00-0.20 (K/uL) Final Immature Granulocytes, Number 05/30/2024 11:01:02 0.04 0.00-0.20 (K/uL) Final Performing Location [facility] [place] [address] [facility] [address]
--- OUTSIDE RECORDS SUMMARY | 2024-06-28 05:42 | External Medical Summary ---
Author Name Unknown Address Unknown Organization K01:[facility] [place] - [address] [place] [address] Laboratory Report Ordering Provider Test Date Status ROSEANN JONES 05/30/2024 11:01:02 Final Observation Date Value Abnormality Reference (Units ) Status Erythrocyte sedimentation rate by Photometric method 05/30/2024 11:01:02 54 Above high normal <30 (mm/hour) Final Performing Location [facility] - [address] [place] [address]
--- OUTSIDE RECORDS SUMMARY | 2024-06-28 05:42 | External Medical Summary | Summary of Care ---
Author Name Unknown Organization [facility] Address [address] [place] [address] Phone [phone] Care Team Providers Care B2B Sales Consultant Name Role Phone Tho Mcgee MD Primary Care Provider [phone] Reason for Visit * Reason Comments eRx-Medication Refill Encounter Details Date Type Department Care Team ([facility] st Contact Info) Description 05/27/2024 Refill Family [facility] [address] [place] [address] Tho Mcgee MD [address] [place] [address] Hyperuricemia Allergies Active Allergy Reactions Criticality Noted Date [...] as of this encounter (statuses as of 05/28/2024) Medications Medication Sig Dispensed Refills Start Date [...] EVENING MEALS 180 Tablet 3 4 Active buPROPion HCl ER (XL) 150 MG Oral Tablet Extended Release 24 Hour (Wellbutrin XL) TAKE 1 TABLET BY MOUTH ONCE DAILY 90 Tablet 4 Active hydroCHLOROthiazide 25 MG Oral Tablet [...] THE MORNING 90 Tablet 1 4 Active Allopurinol 300 MG Oral Tablet (Zyloprim)Indicatio ns:Hyperuricemia TAKE 1 TABLET BY MOUTH IN THE MORNING 30 Tablet 5 4 05/28/20 24 Discontinued documented as of this encounter (statuses as of 05/28/2024) Active Problems Problem Noted Date Diagnosed Date [...] as of this encounter (statuses as of 05/28/2024) Resolved Problems Problem Noted Date Diagnosed Date [...] as of this encounter (statuses as of 05/28/2024) Immunizations Name Administration Dates Next Due COVID-19 [...] Notes * Telephone Encounter - Manuelito Nguyen [facility] - 05/28/2024 11:59 AM EDT Signed Prescriptions: Disp Refills Allopurinol 300 MG Oral Tablet (Zyloprim) 90 Tab*1 Sig: TAKE 1 TABLET BY MOUTH IN THE MORNINGAuthorizing Provider: Amy MCGEE User: MANUELITO NGUYEN-- documented in this encounter Plan of Treatment Upcoming Encounters Date Type Department Care Team ([facility] st Contact Info) Description 07/04/2024 11:40 AM EDT Office Visit Family [address] [phone] Tho Mcgee MD [address] [place] [address] [place] [address] 11/04/2024 10:00 AM EST Telemedicine [facility] [address] [facility] [place] [phone] Estefania Nix, [address] [facility] [place] [address] 12/06/2024 4:40 PM EST Office Visit Dermatology [address] [phone] Miah Maciel PA-C [address] [place] [address] Scheduled Procedures Name Priority Associated Diagnoses Date/Ti [...] 03/25/2024, 05/0 01/2024, 03/23/2023, Additional history exists GFR 05/11/2025 05/11/2024, [...] as of this encounter Visit Diagnoses Diagnosis Hyperuricemia Other abnormal blood chemistry documented in this encounter Advance Directives * [...] Power of Attor jodi? No Care Teams B2B Sales Consultant Relationship Specialty Start Date End Date Tho Mcgee MD [address] [place] [id number] PCP - General Family Medicine 10/10/14 documented as of this encounter
--- OUTSIDE RECORDS SUMMARY | 2024-06-28 05:42 | External Medical Summary ---
Author Name Unknown Address Unknown Organization [id number]:[facility] [place] [address] [place] [address] Laboratory Report Ordering Provider Test Date Status ROSEANN JONES 05/30/2024 11:01:21 Final Warfarin Therapy
INR: 2 .0-3.0 conventional anticoagulation
INR: 2.5- 3.5 high intensity anticoagulation Observation Date Value Abnormality Reference (Units ) Status PT 05/30/2024 11:01:21 13.1 11.6-15.2 (seconds) Final INR 05/30/2024 11:01:21 1.0 0.8-1.2 Final Performing Location [facility] [place] [address] [place] [address]
--- OUTSIDE RECORDS SUMMARY | 2024-06-28 05:42 | External Medical Summary ---
Author Name Unknown Address Unknown Organization : Laboratory Report Ordering Provider Test Date Status DURAN MARINO 05/30/2024 11:01:02 Final Observation Date Value Abnormality Reference (Units ) Status Mycobacterium tuberculosis stimulated gamma interferon [Interpretation] in Blood Qualitative 05/30/2024 11:01:02 NEGATIVE NEGATIVE Final Negative test result. M. tub erculosis complex
infection unlikely. Gamma interferon background [Units/volume] in Blood by Immunoassay 05/30/2024 11:01:02 0.02 (IU/mL) Final Mitogen stimulated gamma int erferon [Units/volume] corrected for background in Blood 05/30/2024 11:01:02 6.56 (IU/mL) Final Mycobacterium tuberculosis s timulated gamma interferon release by CD4+ T-cells [Units/volume] corrected for background in Blood 05/30/2024 11:01:02 0.01 (IU/mL) Final Mycobacterium tuberculosis s timulated gamma interferon release by CD4+ and CD8+ T-cells [Units/volume] corrected for background in Blood 05/30/2024 11:01:02 0.01 (IU/mL) Final The Nil tube value reflects the background interferon
gamma immune response of the patient's blood sample.
This value has been subtracted from the patient's
displayed TB and Mitogen results.
Lower than expected results with the Mitogen tube
prevent false-negative Quantiferon readings by detect-
ing a patient with a potential immune suppressive
condition and/or suboptimal pre-analytical specimen
handling.
The TB1 Antigen tube is coated with the M.
tuberculosis-specific antigens designed to elicit
responses from TB antigen primed CD4+ helper
T-lymphocytes.
The TB2 Antigen tube is coated with the M.
tuberculosis-specific antigens designed to elicit
responses from TB antigen primed CD4+ helper and CD8+
cytotoxic T-lymphocytes.
For additional information, please refer to
http://education.[employer] ([employer])/faq/KRK929
(This link is being provided for information/
educational purposes only.)

Test Performed at:
[facility]
[address]
[place] [address]
Bahman Shelton M.D., Ph.D.,Director of Laboratories Performing Location
--- OUTSIDE RECORDS SUMMARY | 2024-06-28 05:42 | External Medical Summary ---
Author Name Unknown Address Unknown Organization K01[place] [place] [address] [facility] [address] [address] [place] [address] Laboratory Report Ordering Provider Test Date Status ROSEANN JONES 05/30/2024 11:01:02 Final Observation Date Value Abnormality Reference (Units ) Status BUN 05/30/2024 11:01:02 13 6-20 (mg/dL) Final Creatinine 05/30/2024 11:01:02 1.0 0.5-1.0 (mg/dL) Final Glomerular filtration rate/1.73 sq M.predicted [Volume Rate/Area] in Serum, Plasma or Blood by Creatinine-based formula (CKD-EPI) 05/30/2024 11:01:02 71 >=60 (mL/min) Final eGFR is calculated based on the CKD-EPI 2020 equation Sodium 05/30/2024 11:01:02 142 135-146 (m mol/L) Final Potassium 05/30/2024 11:01:02 3.4 Below low normal 3.5 -5.1 (mmol/L) Final Cl 05/30/2024 11:01:02 100 98-107 (mm ol/L) Final CO2 05/30/2024 11:01:02 24 22-32 (mmo l/L) Final Anion gap 05/30/2024 11:01:02 18 Above high normal 7- 15 (mmol/L) Final Glucose 05/30/2024 11:01:02 123 Above high normal 70 -120 (mg/dL) Final Albumin 05/30/2024 11:01:02 4.4 3.8-5.0 (g /dL) Final AST (Aspartate aminotransferase) 05/30/2024 11:01:02 27 10-35 (U/L) Fin al Alk Phos 05/30/2024 11:01:02 94 35-130 (U/ L) Final Bilirubin, Total 05/30/2024 11:01:02 0.2 <=1 .2 (mg/dL) Final Calcium 05/30/2024 11:01:02 9.8 8.4-10.2 ( mg/dL) Final Protein 05/30/2024 11:01:02 7.0 6.0-8.3 (g /dL) Final ALT (Alanine aminotransferase) 05/30/2024 11:01:02 20 10-35 (U/L) Eduard ziegler Performing Location [facility] [place] [facility] [address] [facility] [address]
--- OUTSIDE RECORDS SUMMARY | 2024-06-28 05:43 | External Medical Summary ---
Author Name Unknown Address Unknown Organization K1G:[facility] - [address] [facility] [address] Laboratory Report Ordering Provider Test Date Status DANIEL CHU 05/11/2024 17:10:38 Final Observation Date Value Abnormality Reference (Units ) Status SYNC LEUKOCYTES IN BLOOD BY AUTOMATED COUNT 05/11/2024 17:10:38 12.30 Above high normal 4.00-10.80 (K/uL) Final Segs 05/11/2024 17:10:38 71.0 40.0-75.0 (%) Final Lymphs % 05/11/2024 17:10:38 20.9 18.0-42.0 (%) Final Monos 05/11/2024 17:10:38 6.8 1.0-11.0 (%) Final Eosinophils 05/11/2024 17:10:38 1.0 0.0-6.0 (%) Final Basos 05/11/2024 17:10:38 0.3 0.0-2.0 (%) Final Absolute Segs 05/11/2024 17:10:38 8.73 Above high normal 1.80-7.70 (K/uL) Final Lymphs, absolute 05/11/2024 17:10:38 2.57 1.00-4.80 (K/ul) Final Monos, Abs 05/11/2024 17:10:38 0.84 0.00-1.10 (K/uL) Final Eos, Abs 05/11/2024 17:10:38 0.12 0.00-0.70 (K/uL) Final Basos, Abs 05/11/2024 17:10:38 0.04 0.00-0.20 (K/uL) Final Performing Location [facility] - [address] [facility] [address]
--- OUTSIDE RECORDS SUMMARY | 2024-06-28 05:43 | External Medical Summary | Summary of Care ---
Author Name Unknown Organization [facility] Address [address] [place] [address] Phone [phone] Care Team Providers Care Fagoting Machine Operator Name Role Phone Tho Hurley MD Primary Care Provider Reason for Visit * Reason Comments Blurred vision * Auth/Cert Specialty Diagnoses / Procedures Referred By Ector hernadez Referred To Contact [facility] [address] [place] [address] Phone: [phone] Emergency Medicine [facility] [address] [place] [address] Referral ID Status Reason Start Date Expiration Date Visits Re quested Visits Authorized [id number] Encounter Details Date Type Department Care Team ([facility] Contact Info) Description 05/11/2024 4:55 PM EDT - 05/11/2024 6:54 PM EDT Emergency [facility] Emergency Department ([facility]) [address] [place] [address] Hector Meraz MD [facility] [place] [address] Blurry vision, bilateral (Primary Dx) Discharge Disposition: Home - Self Care Allergies [...] before bedtime. 60 Each 5 12/16/2022 Active Max EndoscopyTouch Verio In Vitro Strip (Glucose Blood)Indications:Ty pe 2 diabetes mellitus with hemoglobin A1c goal of less than 8.0% ([facility]) Use up to 1 times a day E11.9. type 2 Diabetes Mellitus 100 Strip 11 01/23/2023 Active OneTouch Verio w/Device KitIndications:Type 2 diabetes mellitus with hemoglobin A1c goal of less than 8.0% ([facility]) Use up to 1 times a day [...] THE MORNING 90 Tablet 3 04/21/2024 Active documented as of this encounter (statuses [...] Sign Reading Time Taken Comments Blood Pressure 132/70 05/11/2024 6:45 PM EDT Pulse 74 05/11/2024 6:45 PM EDT Temperature 36.7 C (98.1 F) 05/11/2024 4:54 PM ED T Respiratory Rate 18 05/11/2024 6:45 PM EDT Oxygen Saturation 99% 05/11/2024 6:45 PM EDT Inhaled Oxygen Concentration - - Weight - - Height - - Body Mass Index - - documented in this encounter Functional Status Functional [...] No 11/24/2022 documented as of this encounter Discharge Instructions * Discharge Instructions* Marlen Mcgregor PA-C - 05/11/2024 6:45 PM EDT As we discussed, your studies were all generally normal. We did not see any abnormalities on your CT angiograms. We recommend you continue to monitor your symptoms. Follow up with your doctor and/or pool lifeguard by the end of the week if not improving. Thank you for allowing us to participate in your care today. documented in this encounter ED Notes * Audrey Lerma RN - 05/11/2024 5:00 PM EDT 1/2 hour prior to arrival, the pt developed blurred vision while reading. She states it is in both eyes. She saw hash tags in the middle of words. She did take excedrin after her symptoms started documented in this encounter Miscellaneous Notes * Pt Handout (on AVS) - Marlen Mcgregor PA-C - 05/11/2024 6:41 PM EDT [id number] Blurred Vision Blurred vision is when your vision is no longer sharp and you can?t see small details. Any changes in your vision, whether sudden or over time, should be examined by an plastic eye technician. Vision changes can be caused by many things. These include eye diseases, side effects of some medicines, or a condition such as diabetes. Never ignore vision changes. People often think that vision changes occur because they need a change in their glasses. Many people then delay seeing their healthcare provider about their vision changes. But it?s risky to delay care. If left untreated, some eye problems can lead to lasting (permanent) vision loss that can?t be corrected with glasses. This can significantly reduce quality of life. Home care Make changes in your home to reduce the risk of falling: Keep walkways clear of objects you may trip over. Use nonslip pads under rugs. Brighter lighting in your home may help you see better. Don?t walk in poorly lit areas. Be careful when stepping up and down from curbs and walking on uneven sidewalks. Follow-up care Follow up with an plastic eye technician or as advised. There are 2 types of eye care providers you can consult: Death Surveys Coder. This is a licensed healthcare provider of optometry. Optometrists go to school for 4 years post-college to specialize in primary eye care. They do routine eye exams and can also diagnose and treat certain eye diseases. They also prescribe glasses and contact lenses. Marine Equipment Research Engineer. This is a medical doctor who went to medical school and then specialized in eyecare and surgery. Ophthalmologists can diagnose and treat all eye diseases, prescribe medicines, and do eye surgery. They may also prescribe glasses and contact lenses. When to get medical care Call your healthcare provider right away if any of these occur: Sudden change in your vision Eye pain, redness, or discharge from your eyelid Blurriness doesn?t get better, or it gets worse Dark spots in your field of vision Halos around lights Dots or strings (called floaters) moving across your field of vision Sudden flash of light inside your eye Vision dims Part or full vision loss Last Reviewed Date: 10/23/202219998822-0788 The [employer]. All rights reserved. This information is not intended as a substitute for professional medical care. Always follow your healthcare professional's instructions. * ED Teleservices Representative Note - Lianet Raymundo TECH - 05/11/2024 5:00 PM EDT BSG finger stick from 2nd finger on left hand. Site prepped with alcohol swab and rubbing vigorously for 15 seconds. Initial drop of blood wiped away with 2x2, then sample applied to glucometer strip. Result of 135, notified RN and provider. Site dressed with band-aid. Procedure confirmed for correct Patient with two (2) Patient identifiers. documented in this encounter Plan of Treatment Upcoming Encounters Date Type Department Care Team ([facility] Contact Info) Description 05/12/2024 8:20 AM EDT Office Visit Dermatology [address] [phone] Miah Maciel PA-C [address] [place] [id number] 07/04/2024 11:40 AM EDT Office Visit Family Practice [address] [address] Tho Hurley MD [address] [place] [id number] 11/04/2024 10:00 AM EST Telemedicine [facility] Disorders [facility] [address] [facility] [place] [address] Estefania Nix DO [address] [facility] [place] [address] Scheduled Procedures Name Priority Associated Diagnoses Date/Ti [...] TO SMARTSET #[id number]) 05/02/2022 05/02/2021 COVID-19 Vaccine (2022-24 season) 2023 08/06/2022, 04/10/2022, 10/03/2021, Additional history [...] Procedure Name Priority Date/Time Associated Diagnosis Comments CTA HEAD/CTA NECK STAT 05/11/2024 5:2 2 PM EDT DIFFERENTIAL, AUTOMATED STAT 05/11/2024 5:10 PM EDT BASIC METABOLIC PANEL STAT 05/11/2024 5:10 PM EDT CBC STAT 05/11/2024 5:10 PM EDT PT INR STAT 05/11/2024 5:10 PM EDT CBC STAT 05/11/2024 5:10 PM EDT GLUCOSE METER, POINT OF CARE KIMBERLY 05/11/2024 4:58 PM EDT documented in this encounter Results * CTA HEAD/CTA NECK (05/11/2024 5:22 PM EDT) Anatomical Region Laterality Modality Neck, Head, Cspine, Spine Comput ed Tomography 05/11/2024 5:15 PM EDT Impressions 05/11/2024 6:37 PM EDT IMPRESSION: 1. No acute intracranial findings on CT head without contrast. 2. No large vessel occlusion. PROCEDURE INFORMATION: Exam: CTA Neck Without And With Contrast Exam date and time: 05/11/2024 5:15 PM Age: 53 years old Clinical indication: Visual disturbance; Additional info: Blurred vision in both eyes, pressure in face/head TECHNIQUE: Imaging protocol: Computed tomographic angiography of the neck without and with contrast. Exam focused on the cervical segments of the vasculature. 3D rendering (Not supervised by radiologist): MIP and/or 3D reconstructed images were created by the technologist. Radiation optimization: All CT scans at this facility use at least one of these dose optimization techniques: automated exposure control; mA and/or kV adjustment per patient size (includes targeted exams where dose is matched to clinical indication); or iterative reconstruction. Contrast material: ISOVUE 370; Contrast volume: 80 ml; Contrast route: INTRAVENOUS (IV); COMPARISON: CT PE(Adult) 11/24/2022 8:17 PM FINDINGS: Right common carotid artery: No stenosis. No dissection or occlusion. Right internal carotid artery: No stenosis of the extracranial segment. No dissection or occlusion. Right external carotid artery: No occlusion or stenosis of the origin. Left common carotid artery: Left carotid bifurcation calcified plaque. Left internal carotid artery: No stenosis of the extracranial segment. No dissection or occlusion. Left external carotid artery: No occlusion or stenosis of the origin. Right vertebral artery: No stenosis. No dissection or occlusion. Left vertebral artery: No stenosis. No dissection or occlusion. Dental: Examination is limited secondary to metallic artifact from dental fillings and/or dental hardware. Soft tissues: Normal. No significant soft tissue swelling. Bones/joints: Mild levoscoliosis. Partial T3-4 vertebral body and posterior element developmental fusion. Severe C6-C7 degenerative disc disease and spondylosis. Other findings: No ICA stenosis by NASCET/SRU criteria. Codominant vertebral arteries. IMPRESSION: 1. No ICA stenosis by NASCET/SRU criteria. 2. Codominant vertebral arteries. REFERENCES: NASCET CRITERIA. The degree of stenosis in the cervical segment of the internal carotid artery is based on NASCET criteria. Normal is no stenosis. Mild is less than 50% stenosis. Moderate is 50-69% stenosis. Severe is 70% to 99% stenosis. Total occlusion is no detectable patent lumen. THIS DOCUMENT HAS BEEN ELECTRONICALLY SIGNED BY CHARISSA AQUINO MD Narrative 05/11/2024 6:37 PM EDT PROCEDURE INFORMATION: Exam: CTA Head Without And With Contrast, Arteriography Exam date and time: 05/11/2024 5:15 PM Age: 53 years old Clinical indication: Visual disturbance; Additional info: Blurred vision in both eyes, pressure in face/head TECHNIQUE: Imaging protocol: Computed tomographic angiography of the head without and with contrast. Exam focused on the arteries. 3D rendering (Not supervised by radiologist): MIP and/or 3D reconstructed images were created by the technologist. Radiation optimization: All CT scans at this facility use at least one of these dose optimization techniques: automated exposure control; mA and/or kV adjustment per patient size (includes targeted exams where dose is matched to clinical indication); or iterative reconstruction. Contrast material: ISOVUE 370; Contrast volume: 80 ml; Contrast route: INTRAVENOUS (IV); COMPARISON: CT SINUS FUSION(Adult) 01/23/2023 12:30 PM FINDINGS: ANTERIOR CIRCULATION: Right internal carotid artery: Intracranial segment is patent with no significant stenosis or occlusion. No aneurysm. Right middle cerebral artery: No occlusion or significant stenosis. No aneurysm. Right anterior cerebral artery: No occlusion or significant stenosis. No aneurysm. Left internal carotid artery: Calcified plaque in the left cavernous ICA without significant stenosis. Left middle cerebral artery: No occlusion or significant stenosis. No aneurysm. Left anterior cerebral artery: No occlusion or significant stenosis. No aneurysm. POSTERIOR CIRCULATION: Right vertebral artery: Dominant right vertebral artery with patent left vertebral artery. Dominant right vertebral artery with patent left vertebral artery. Left vertebral artery: See "Right vertebral artery" finding. Basilar artery: No occlusion or significant stenosis. No aneurysm. Right posterior cerebral artery: No occlusion or significant stenosis. No aneurysm. Left posterior cerebral artery: No occlusion or significant stenosis. No aneurysm. Left posterior communicating artery: Left posterior communicating artery. Superior cerebellar arteries: Bilateral superior cerebellar arteries. HEAD: Brain: No acute intracranial findings on CT head without contrast. Cerebral ventricles: Normal. No ventriculomegaly. Bones: Unremarkable. No acute fracture. Paranasal sinuses: Visualized sinuses are normal. No fluid levels. Mastoid air cells: Visualized mastoids are normal. No mastoid effusion. Soft tissues: Unremarkable. 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 Procedure Note Charissa Aquino MD - 05/11/2024 PROCEDURE INFORMATION: Exam: CTA Head Without And With Contrast, Arteriography Exam date and time: 05/11/2024 5:15 PM Age: 53 years old Clinical indication: Visual disturbance; Additional info: Blurred visionin both eyes, pressure in face/head TECHNIQUE: Imaging protocol: Computed tomographic angiography of the head without andwith contrast. Exam focused on the arteries. 3D rendering (Not supervised by radiologist): MIP and/or 3D reconstructed images were created by the technologist. Radiation optimization: All CT scans at this facility use at least one ofthese dose optimization techniques: automated exposure control; mA and/or kV adjustment per patient size (includes targeted exams where dose is matchedto clinical indication); or iterative reconstruction. Contrast material: ISOVUE 370; Contrast volume: 80 ml; Contrast route: INTRAVENOUS (IV); COMPARISON: CT SINUS FUSION(Adult) 01/23/2023 12:30 PM FINDINGS: ANTERIOR CIRCULATION: Right internal carotid artery: Intracranial segment is patent with no significant stenosis or occlusion. No aneurysm. Right middle cerebral artery: No occlusion or significant stenosis. No aneurysm. Right anterior cerebral artery: No occlusion or significant stenosis. No aneurysm. Left internal carotid artery: Calcified plaque in the left cavernous ICA without significant stenosis. Left middle cerebral artery: No occlusion or significant stenosis. Noaneurysm. Left anterior cerebral artery: No occlusion or significant stenosis. No aneurysm. POSTERIOR CIRCULATION: Right vertebral artery: Dominant right vertebral artery with patent left vertebral artery. Dominant right vertebral artery with patent leftvertebral artery. Left vertebral artery: See "Right vertebral artery" finding. Basilar artery: No occlusion or significant stenosis. No aneurysm. Right posterior cerebral artery: No occlusion or significant stenosis. No aneurysm. Left posterior cerebral artery: No occlusion or significant stenosis. No aneurysm. Left posterior communicating artery: Left posterior communicating artery. Superior cerebellar arteries: Bilateral superior cerebellar arteries. HEAD: Brain: No acute intracranial findings on CT head without contrast. Cerebral ventricles: Normal. No ventriculomegaly. Bones: Unremarkable. No acute fracture. Paranasal sinuses: Visualized sinuses are normal. No fluid levels. Mastoid air cells: Visualized mastoids are normal. No mastoid effusion. Soft tissues: Unremarkable. 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 IMPRESSION IMPRESSION: 1. No acute intracranial findings on CT head without contrast. 2. No large vessel occlusion. PROCEDURE INFORMATION: Exam: CTA Neck Without And With Contrast Exam date and time: 05/11/2024 5:15 PM Age: 53 years old Clinical indication: Visual disturbance; Additional info: Blurred visionin both eyes, pressure in face/head TECHNIQUE: Imaging protocol: Computed tomographic angiography of the neck without andwith contrast. Exam focused on the cervical segments of the vasculature. 3D rendering (Not supervised by radiologist): MIP and/or 3D reconstructed images were created by the technologist. Radiation optimization: All CT scans at this facility use at least one ofthese dose optimization techniques: automated exposure control; mA and/or kV adjustment per patient size (includes targeted exams where dose is matchedto clinical indication); or iterative reconstruction. Contrast material: ISOVUE 370; Contrast volume: 80 ml; Contrast route: INTRAVENOUS (IV); COMPARISON: CT PE(Adult) 11/24/2022 8:17 PM FINDINGS: Right common carotid artery: No stenosis. No dissection or occlusion. Right internal carotid artery: No stenosis of the extracranial segment. No dissection or occlusion. Right external carotid artery: No occlusion or stenosis of the origin. Left common carotid artery: Left carotid bifurcation calcified plaque. Left internal carotid artery: No stenosis of the extracranial segment. No dissection or occlusion. Left external carotid artery: No occlusion or stenosis of the origin. Right vertebral artery: No stenosis. No dissection or occlusion. Left vertebral artery: No stenosis. No dissection or occlusion. Dental: Examination is limited secondary to metallic artifact from dental fillings and/or dental hardware. Soft tissues: Normal. No significant soft tissue swelling. Bones/joints: Mild levoscoliosis. Partial T3-4 vertebral body andposterior element developmental fusion. Severe C6-C7 degenerative disc disease and spondylosis. Other findings: No ICA stenosis by NASCET/SRU criteria. Codominantvertebral arteries. IMPRESSION: 1. No ICA stenosis by NASCET/SRU criteria. 2. Codominant vertebral arteries. REFERENCES: NASCET CRITERIA. The degree of stenosis in the cervical segment of theinternal carotid artery is based on NASCET criteria. Normal is no stenosis. Mild isless than 50% stenosis. Moderate is 50-69% stenosis. Severe is 70% to 99%stenosis. Total occlusion is no detectable patent lumen. THIS DOCUMENT HAS BEEN ELECTRONICALLY SIGNED BY CHARISSA AQUINO MD Marlen Mcgregor PA-C RAD CT * (ABNORMAL) DIFFERENTIAL, AUTOMATED (05/11/2024 5:10 PM EDT) WBC 12.30(H) 4.00 - 10.80 K/uL 05/11/2024 5:19 PM EDT LABORATORY [facility] Neutrophils % 71.0 40.0 - 75.0 % 05/11/2024 5:19 PM EDT LABORATORY [facility] Lymphocytes % 20.9 18.0 - 42.0 % 05/11/2024 5:19 PM EDT LABORATORY [facility] Monocytes % 6.8 1.0 - 11.0 % 05/11/2024 5:19 PM EDT LABORATORY [facility] Eosinophils % 1.0 0.0 - 6.0 % 05/11/2024 5:19 PM EDT LABORATORY [facility] Basophils % 0.3 0.0 - 2.0 % 05/11/2024 5:19 PM EDT LABORATORY [facility] Absolute Neutrophils 8.73(H) 1.80 - 7.70 K/uL 05/11/2024 5:19 PM EDT LABORATORY [facility] Absolute Lymphocytes 2.57 1.00 - 4.80 K/ul 05/11/2024 5:19 PM EDT LABORATORY [facility] Absolute Monocytes 0.84 0.00 - 1.10 K/uL 05/11/2024 5:19 PM EDT LABORATORY [facility] Absolute Eosinophils 0.12 0.00 - 0.70 K/uL 05/11/2024 5:19 PM EDT LABORATORY [facility] Absolute Basophils 0.04 0.00 - 0.20 K/uL 05/11/2024 5:19 PM EDT LABORATORY [facility] Blood Venous blood specimen / Unknown Venipuncture / Unknown 05/11/2024 5:10 PM EDT 05/11/2024 5:15 PM EDT Marlen Mcgregor PA-C LAB BLOOD OR DERABLES LABORATORY [id number] [place] [address] * (ABNORMAL) CBC (05/11/2024 5:10 PM EDT) WBC 12.30(H) 4.00 - 10.80 K/uL 05/11/2024 5:19 PM EDT LABORATORY [facility] RBC 4.89 3.85 - 5.15 M/uL 05/11/2024 5:19 PM EDT LABORATORY [facility] HGB 13.7 12.0 - 15.3 g/dL 05/11/2024 5:19 PM EDT LABORATORY [facility] HCT 42.5 36.0 - 45.2 % 05/11/2024 5:19 PM EDT LABORATORY [facility] MCV 86.9 81.5 - 97.5 fL 05/11/2024 5:19 PM EDT LABORATORY [facility] MCH 28.0 27.0 - 34.0 pg 05/11/2024 5:19 PM EDT LABORATORY [facility] MCHC 32.2 32.0 - 36.0 g/dL 05/11/2024 5:19 PM EDT LABORATORY [facility] RDW 14.4 11.5 - 15.5 % 05/11/2024 5:19 PM EDT LABORATORY [facility] PLT 452(H) 140 - 400 K/uL 05/11/2024 5:19 PM EDT LABORATORY [facility] MPV 10.6 6.6 - 11.1 fL 05/11/2024 5:19 PM EDT LABORATORY [facility] Blood Venous blood specimen / Unknown Venipuncture / Unknown 05/11/2024 5:10 PM EDT 05/11/2024 5:15 PM EDT Marlen Mcgregor PA-C LAB BLOOD OR DERABLES LABORATORY [address] [address] * PT INR (05/11/2024 5:10 PM EDT) [facility] Prothrombin Time 13.1 11.6 - 15.2 seconds 05/11/2024 5:29 PM EDT LABORATORY [facility] INR 1.0 0.8 - 1.2 05/11/2024 5:29 PM EDT LABORATORY [facility] Blood Venous blood specimen / Unknown Venipuncture / Unknown 05/11/2024 5:10 PM EDT 05/11/2024 5:15 PM EDT Narrative LABORATORY SH - 05/11/2024 5:29 PM EDT Warfarin Therapy INR: 2.0-3.0 conventional anticoagulation INR: 2.5-3.5 high intensity anticoagulation Marlen Mcgregor PA-C LAB BLOOD OR DERABLES LABORATORY [address] [address] * (ABNORMAL) BASIC METABOLIC PANEL (05/11/2024 5:10 PM EDT) [facility] BUN 10 6 - 20 mg/dL 05/11/2024 5:35 PM EDT LABORATORY [facility] Creatinine 1.0 0.5 - 1.0 mg/dL 05/11/2024 5:35 PM EDT LABORATORY [facility] Estimated Glomerular Filtration Rate 71 >=60 mL/min 05/11/2024 5:35 PM EDT LABORATORY [facility] Comment:eGFR is calculated b ased on the CKD-EPI 2020 equation Sodium 139 135 - 146 mmol/L 05/11/2024 5:35 PM EDT LABORATORY [facility] Potassium 3.5 3.5 - 5.1 mmol/L 05/11/2024 5:35 PM EDT LABORATORY [facility] Chloride 98 98 - 107 mmol/L 05/11/2024 5:35 PM EDT LABORATORY [facility] CO2 24 22 - 32 mmol/L 05/11/2024 5:35 PM EDT LABORATORY [facility] Anion Gap 17(H) 7 - 15 mmol/L 05/11/2024 5:35 PM EDT LABORATORY [facility] Glucose 126(H) 70 - 120 mg/dL 05/11/2024 5:35 PM EDT LABORATORY [facility] Calcium 9.9 8.4 - 10.2 mg/dL 05/11/2024 5:35 PM EDT LABORATORY [facility] Blood Venous blood specimen / Unknown Venipuncture / Unknown 05/11/2024 5:10 PM EDT 05/11/2024 5:15 PM EDT Marlen Mcgregor PA-C LAB BLOOD OR DERABLES LABORATORY [address] [address] * (ABNORMAL) GLUCOSE METER, POINT OF CARE (05/11/2024 4:58 PM EDT) Glucose Meter 135(H) 70 - 120 mg/dL 05/11/2024 5:01 PM EDT LABORATORY [facility] Blood Whole blood specimen / Unknown 05/11/2024 4:58 PM EDT 05/11/2024 5:01 PM EDT Hector Meraz MD LAB POINT OF CARE T EST DOCKED DEVICE UNSOLICITED RESULTS LABORATORY [id number] [place] [address] documented in this encounter Visit Diagnoses Diagnosis Blurry vision, bilateral- Primary Other specified visual disturbances documented in this encounter Administered Medications Inactive Administered Medications - up to 3 most recent administrations Medication Order MAR Action Action Date Dose Rate Site diphenhydrAMINE (Benadryl) inj 25 mg 25 mg, Intravenous, ONCE, On Thu05/11/24 at 1745, For 1 dose Given 05/11/2024 5:33 PM EDT 25 mg Iopamidol (Isovue 370) inj 80 mL 80 mL, Intravenous, ONCE, On Thu05/11/24 at 1800, For 1 dose, Radiology Medication Routing (Non-IR) Given 05/11/2024 5:22 PM EDT 80 mL keTORolac (Toradol) 15 MG/ML inj 15 mg 15 mg, IV Push, ONCE, On Thu05/11/24 at 1745, For 1 dose Given 05/11/2024 5:31 PM EDT 15 mg NSS 0.9% 1,000 mL bolus infusion Intravenous, at 1,000 mL/hr Administer over 60 Minutes, Administer entire volume within 60 minutes or less., ONCE, 1 dose, On Thu05/11/24 at 1745 New Bag 05/11/2024 5:30 PM EDT 1,000 mL 1000 mL/hr prochlorperazine (Compazine) inj 10 mg 10 mg, Intravenous, ONCE, On Thu05/11/24 at 1745, For 1 dose Given 05/11/2024 5:34 PM EDT 10 mg documented in this encounter Active and Recently Administered Medications Times are shown in EDT. Scheduled Medication Order 05/09/2024 05/10/2024 05/11/2024 diphenhydrAMINE (Benadryl) inj 25 mg (COMPLETED) 25 mg, Intravenous, ONCE, On Thu05/11/24 at 1745, For 1 dose 1733 (Given - Provid er: Audrey Lerma RN) Iopamidol (Isovue 370) inj 80 mL (COMPLETED) 80 mL, Intravenous, ONCE, On Thu05/11/24 at 1800, For 1 dose, Radiology Medication Routing (Non-IR) 1722 (Given - Provid er: Graham Charles, RT (R)) keTORolac (Toradol) 15 MG/ML inj 15 mg (COMPLETED) 15 mg, IV Push, ONCE, On Thu05/11/24 at 1745, For 1 dose 1731 (Given - Provid er: Audrey Lerma RN) NSS 0.9% 1,000 mL bolus infusion (COMPLETED) Intravenous, at 1,000 mL/hr Administer over 60 Minutes, Administer entire volume within 60 minutes or less., ONCE, 1 dose, On Thu05/11/24 at 1745 1730 (New Bag - Prov ider: Audrey Lerma RN)1830 (Stopped - Provider: Audrey Lerma RN) prochlorperazine (Compazine) inj 10 mg (COMPLETED) 10 mg, Intravenous, ONCE, On Thu05/11/24 at 1745, For 1 dose 1734 (Given - Provid er: Audrey Lerma RN) documented in this encounter Advance Directives * [...] Power of Attor jodi? No Care Teams Fagoting Machine Operator Relationship Specialty Start Date End Date Tho Hurley MD [address] [place] [id number] PCP - General Family Medicine 10/10/14 documented as of this encounter
--- OUTSIDE RECORDS SUMMARY | 2024-06-28 05:43 | External Medical Summary ---
Author Name Unknown Address Unknown Organization K1G:[facility] - [address] [place] [id number] Laboratory Report Ordering Provider Test Date Status JAQUELINE GLEASON 05/11/2024 16:58:55 Final Observation Date Value Abnormality Reference (Units ) Status Glucose Point of Care 05/11/2024 16:58:55 135 Above high normal 70-120 (mg/dL) Final Performing Location [facility] - [address] [facility] [place] [id number]
--- OUTSIDE RECORDS SUMMARY | 2024-06-28 05:43 | External Medical Summary ---
Author Name Unknown Address Unknown Organization K1G:[facility] - [address] [facility] [id number] Laboratory Report Ordering Provider Test Date Status DANIEL CHU 05/11/2024 17:10:38 Final Warfarin Therapy
INR: 2 .0-3.0 conventional anticoagulation
INR: 2.5- 3.5 high intensity anticoagulation Observation Date Value Abnormality Reference (Units ) Status PT 05/11/2024 17:10:38 13.1 11.6-15.2 (seconds) Final INR 05/11/2024 17:10:38 1.0 0.8-1.2 Final Performing Location LAB[facility]ATORY [facility] - [address] [facility] [phone]
--- OUTSIDE RECORDS SUMMARY | 2024-06-28 05:43 | External Medical Summary | Summary of Care ---
Author Name Unknown Organization [facility] Address [address] [facility] [place] [address] Phone [phone] Care Team Providers Care Allopathic Doctor Name Role Phone Tho Hurley MD Primary Care Provider [phone] Encounter Details Date Type Department Care Team ([facility] st Contact Info) Description 05/03/2024 Orders Only PATIENT PORTAL DO NOT DELETE THIS DEPT USED BY [place] [id number] Allergies Active Allergy Reactions Criticality Noted Date [...] as of this encounter (statuses as of 05/03/2024) Medications Medication Sig Dispensed Refills Start Date [...] CPAP every night at bedtime . Active Fluticasone-Salmetero l 250-50 MCG/ACT Inhalation Aerosol [...] evening. Active Allopurinol 300 MG Oral Tablet (Zyloprim)Indications [...] follow package directions 21 Tablet 01/12/2024 Active Tremfya 100 MG/ML Subcutaneous Solution [...] 03/01/2024 Active hydroCHLOROthiazide 25 MG Oral Tablet (Hydrodiuril)Indicati ons:Hypertension goal BP (blood pressure) < 140/90 TAKE 1 TABLET BY MOUTH ONCE DAILY IN THE MORNING 90 Tablet 3 03/28/2024 Active amLODIPine Besylate 10 MG Oral Tablet (Norvasc)Indications: HTN, goal below 140/90 TAKE 1 TABLET BY MOUTH IN THE MORNING 90 Tablet 3 04/21/2024 Active documented as of this encounter (statuses as of 05/03/2024) Active Problems Problem Noted Date Diagnosed Date [...] as of this encounter (statuses as of 05/03/2024) Resolved Problems Problem Noted Date Diagnosed Date [...] as of this encounter (statuses as of 05/03/2024) Immunizations Name Administration Dates Next Due COVID-19 [...] Upcoming Encounters Date Type Department Care Team ([facility] Contact Info) Description 05/12/2024 8:20 AM EDT Office Visit Dermatology [address] [phone] Miah Maciel PA-C [address] [place] [address] 07/04/2024 11:40 AM EDT Office Visit Family [facility] [address] [facility] [place] [id number] Tho Hurley MD [address] [place] [address] 11/04/2024 10:00 AM EST Telemedicine Sleep Disorders [facility] [address] [place] [phone] Estefania Nix DO [address] [place] [id number] Scheduled Procedures Name Priority Associated Diagnoses Date/Ti me COLONOSCOPY FLEXIBLE PROXIMA L DIAGNOSTIC Recall Special screening for malignant neoplasm Health Maintenance Due Date Last Done Comments Hepatitis B (1 of 3 - 19+ 3-dose series) 1987 Cologuard 2013 Fecal Occult Blood Test 2013 Sigmoidoscopy 2013 Zoster Vaccines (1 of 2) 2018 Depression Screening 06/23/2020 06/23/2019 DISCUSS TOBACCO CESSATION (REFER TO SMARTSET #1381) 05/02/2022 05/02/2021 COVID-19 Vaccine ( season) 2023 08/06/2022, 04/10/2022, 10/03/2021, Additional history exists Mammogram 03/23/2024 03/23/2023, 05/0 11/2022, 03/20/2022, Additional history exists HbA1c 07/04/2024 01/04/2024, 07/24, 01/02/2023, Additional history exists Albumin/Creatinine Ratio 09/23/2024 09/23/2023 Diabetic Foot Exam 01/04/2025 01/04/2024 GFR 01/04/2025 01/04/2024, 07/24, 01/02/2023, Additional history exists Diabetic Eye Exam 01/15/2025 01/15/2024, 01/15/2024 O2 ASSESSMENT COMPLETED IN PAST YEAR FOR COPD 03/02/2025 03/02/2024 DTaP,Tdap,and Td Vaccines (2 - Td or [...] Power of Attor jodi? No Care Teams Allopathic Doctor Relationship Specialty Start Date End Date Tho Hurley MD [address] [place] [id number] PCP - General Family Medicine 10/10/14 documented as of this encounter
--- OUTSIDE RECORDS SUMMARY | 2024-06-28 05:43 | External Medical Summary ---
Author Name Unknown Address Unknown Organization K1G:[facility] - [address] [place] [phone] Laboratory Report Ordering Provider Test Date Status DANIEL CHU 05/11/2024 17:10:38 Final Observation Date Value Abnormality Reference (Units ) Status BUN 05/11/2024 17:10:38 10 6-20 (mg/dL) Final Creatinine 05/11/2024 17:10:38 1.0 0.5-1.0 (mg/dL) Final Glomerular filtration rate/1.73 sq M.predicted [Volume Rate/Area] in Serum, Plasma or Blood by Creatinine-based formula (CKD-EPI) 05/11/2024 17:10:38 71 >=60 (mL/min) Final eGFR is calculated based on the CKD-EPI 2020 equation Sodium 05/11/2024 17:10:38 139 135-146 (m mol/L) Final Potassium 05/11/2024 17:10:38 3.5 3.5-5.1 (m mol/L) Final Cl 05/11/2024 17:10:38 98 98-107 (mm ol/L) Final CO2 05/11/2024 17:10:38 24 22-32 (mmo l/L) Final Anion gap 05/11/2024 17:10:38 17 Above high normal 7- 15 (mmol/L) Final Glucose 05/11/2024 17:10:38 126 Above high normal 70 -120 (mg/dL) Final Calcium 05/11/2024 17:10:38 9.9 8.4-10.2 ( mg/dL) Final Performing Location LAB[facility]ORY [facility] - [address] [facility] [address]
--- OUTSIDE RECORDS SUMMARY | 2024-06-28 05:43 | External Medical Summary ---
Author Name UNSPECIFIED Address Unknown Organization A [facility] History of Encounters Reason for Assessment: Discharge from [facility] Inpatient Facility where the patient been admitted: No inpatient facility admission Discharge Disposition: Patient remained in the community (without formal assistive services) Functional Assessment Bowel Incontinence Frequency: Very rarel y or never has bowel incontinence Cognitive and Behavioral and Psychiatric Symptoms: None Current Ability: Bathing: With the use o f devices, is able to bathe self in shower or tub independently, including getting in and out of the tub/shower. Current Ability: Ambulation: With the us e of a one-handed device (e.g. cane, single crutch, donnie-walker), able to independently walk on even and uneven surfaces and negotiate stairs with or without railings. Current: Management Of Oral Medications: Able to independently take the correct oral medication(s) and proper dosage(s) at the correct time
--- OUTSIDE RECORDS SUMMARY | 2024-06-28 05:43 | External Medical Summary ---
Author Name Unknown Address Unknown Organization K1G:[facility] - [address] [place] [id number] Laboratory Report Ordering Provider Test Date Status DANIEL CHU 05/11/2024 17:10:38 Final Observation Date Value Abnormality Reference (Units ) Status WBC, Total 05/11/2024 17:10:38 12.30 Above high normal 4 .00-10.80 (K/uL) Final RBC 05/11/2024 17:10:38 4.89 3.85-5.15 (M/uL) Final Hemoglobin 05/11/2024 17:10:38 13.7 12.0-15.3 (g/dL) Final HCT 05/11/2024 17:10:38 42.5 36.0-45.2 (%) Final MCV 05/11/2024 17:10:38 86.9 81.5-97.5 (fL) Final MCH 05/11/2024 17:10:38 28.0 27.0-34.0 (pg) Final MCHC 05/11/2024 17:10:38 32.2 32.0-36.0 (g/dL) Final RDW 05/11/2024 17:10:38 14.4 11.5-15.5 (%) Final Platelets 05/11/2024 17:10:38 452 Above high normal 14 0-400 (K/uL) Final MPV 05/11/2024 17:10:38 10.6 6.6-11.1 ( fL) Final Performing Location [facility] - [address] [facility] [id number]
[2024-06-28] MEDS: LR 60ML/HR IV SCH (06:01)
[2024-06-28] MEDS: METOCLOPRAMIDE HCL 10 MG TABLET PO SCH (06:09)
[2024-06-28] MEDS: FAMOTIDINE 20 MG TAB PO SCH (06:09)
[2024-06-28] MEDS: LR 500ML BOLUS, THEN 15ML/HR IV SCH (06:09)
[2024-06-28] MEDS: CeleBREX 200 MG CAP PO SCH (06:09)
[2024-06-28] MEDS: ACETAMINOPHEN 500 MG TAB PO SCH ×2 (06:09→16:22)
[2024-06-28] MEDS: Scopolamine 1 MG TDSY TD SCH (06:10)
[2024-06-28] MEDS ORDERED: BUPIVACAINE 0.5 % 5 MG/1 ML PF 10ML VIAL ONE (06:33)
[2024-06-28] MEDS ORDERED: EPINEPHrine INJ 1 MG/ML AMP ONE (06:33)
[2024-06-28] MEDS ORDERED: BUPIVACAINE 0.25% PF 30 ML VIAL ONE (06:33)
[2024-06-28] MEDS ORDERED: DEXAMETHASONE SOD INJ 4 MG/ML VIAL ONE ×4 (06:33→07:23)
[2024-06-28] MEDS ORDERED: PROPOFOL IV EMULSION 10 MG/ML 100 ML VIAL IV ONE ×2 (06:39→08:26)
[2024-06-28] MEDS ORDERED: fentaNYL citrate PF 100 MCG/2 ML VIAL ONE (06:40)
[2024-06-28] MEDS ORDERED: MIDAZOLAM HCL 1 MG/ML 2ML VIAL ONE (06:40)
[2024-06-28] MEDS ORDERED: KETAMINE HCL 10MG/ML SYR ONE ×2 (06:40→07:38)
--- NOTE | 2024-06-28 06:45 | History & Physical Bridge Note ---
Date of Service June 28, 2024 History & Physical Bridge Note I have examined the patient, reviewed the History & Physical and in the interval since the performance of the History & Physical I have noted the following changes of clinical significance: no changes noted
[2024-06-28] MEDS: ceFAZolin 3000MG 3,000 MG/72.5 ML BAG IV SCH (07:06)
[2024-06-28] MEDS ORDERED: ONDANSETRON INJ 2 MG/ML 2 ML VIAL IV PRN ×2 (07:09→09:44)
[2024-06-28] MEDS ORDERED: ATROPINE SULFATE 0.1 MG/ML 10ML SYR IV PRN (07:09)
[2024-06-28] MEDS ORDERED: ePHEDrine sulfate 50 MG/ML AMP IV PRN (07:09)
[2024-06-28] MEDS ORDERED: ONDANSETRON INJ 2 MG/ML 2 ML VIAL ONE ×2 (07:22→08:47)
[2024-06-28] MEDS: ROPIV 0.5% 246mg, Ketorolac 30mg, EPINEPHrine 0.5mg in NSS INFIL SCH (07:47)
[2024-06-28] MEDS: ORTHO JOINT ANESTHETIC ONE (07:48)
[2024-06-28] MEDS: TRANEXAMIC ACID 1,000 MG **IV Intra-op IV SCH (08:15)
[2024-06-28] MEDS: VANCOMYCIN HCL 1000MG/20ML VIAL ONE (08:24)
[2024-06-28] MEDS ORDERED: PHENYLEPHRINE 100MCG/ML 10ML SYR IV ONE (08:48)
--- NOTE | 2024-06-28 09:25 | Operative Report ---
PG Post Operative Report Pre & Post Diagnosis Operation Date: 06/28/24 07:00 Pre-Op Diagnosis: Right Knee Degenerative Joint Disease Post-Op Diagnosis: Right Knee Degenerative Joint Disease I identified the patient and participated in the time-out.: Yes Procedure Operation Date: 06/28/24 07:00 Actual Procedures p Right Total Knee Arthroplasty(Right) - Antony Walton MD Surgeon Antony Walton MD Patient Intake Coordinator NESSA Bronson Estimated Blood Loss 50 Findings Consistent with Post-Op Diagnosis Operative findings reveal advanced right knee tricompartment DJD. She has extensive erosive disease in all 3 compartments with large posterior osteophytes and a very stiff knee with about 10 to 15 degree flexion contracture and flexion to only about 90 degrees. Specimens Right knee sent for pathology. Anesthesia Type Spinal MAC Complications none Disposition Accompanied Patient To Recovery: No Indications The patient is a 53-year-old morbidly obese female has a long history of bilateral knee pain discomfort described to gotten worse over time. Pain has become debilitating and limiting her activity significantly. She failed all conservative measures. She underwent a left knee replaced about 4 months ago and is done well from that. She is actually lost about 40 pounds she has been able to feel a bit more active. She can be limited by right knee pain. She would like to proceed with right total knee arthroplasty. Description of Procedure Operative implants consist of: 1. Biomet Vanguard size 67.5 right posterior stabilized femoral component. 2. Biomet size 71 Vanguard III 168 tibial tray with an 80 x 12 mm extension with a 5 mm offset and a small cruciate wound. 3. 10 mm push stabilized polyethylene insert. 4. 31 x 8 all poly patella. The patient was taken the op room, identified, placed on the operating table in the supine position. Contact burs were appropriately padded. IV antibiotics fibra anesthesia team. Spinal anesthetic and adductor canal block has been Weida in the holding area. A Solomon catheter was placed in sterile fashion. A right side turn was then placed. The right lower extremity was then prepped and draped in usual sterile fashion. The right leg was elevated and exsanguinated with use of an Esmarch and a turn was placed at 350 mmHg. An anterior process of the right knee was then performed to longitudinal incision centered over the patella. Sharp dissection Through subcutaneous tissue down to the extensor mechanism. A medial parapatellar arthrotomy incision was made. Some subperiosteal dissection was carried out medially. The fat pad was resected munis patella tendon. The patella was subluxate laterally. The lateral patellofemoral ligament was released. The knee was flexed. The ACL and PCL were then released from the distal femur and the tibia osteophytes posteriorly were excised. I then tried to subluxate the knee anteriorly but could not do it. After multiple attempts we elected to cut the femur distally to allow better exposure of the tibia. The disc fumes over the sharp drop with intramedullary canal was suction. Right 5 degree valgus cutting guide was placed. This femoral cutting block was pinned in place. Distal femoral cut was made to take an additional 5 mm of bone off distal femur as she had significant flexion contracture. The femur was then sized to a size 67.5. The 8 cutting block was pinned parallel to the epicondylar axis which is 5 degrees of varus, posterior chamfer cuts were made. The box cutting guide was placed in a just slightly lateral and the box cut was made. The knee was flexed. Attention drawn black to the tibia. The tibial eminence was resected. The intramedullary canal was entered. I reamed up to a size 12. A 12 reamer was left in place. The tibial IM guide was then placed on the IM cesar and the proximal tibial cut was made to remove 2 mm from the medial side. The tibia sized to a size 71. The tibial tray was pinned. We elected to use a 5 mm offset device. The proximal tibia was then prepared for a 5 mm offset stem. The trial implant was placed and fit nicely. I then trialed the knee and the 10 mm insert fit most appropriately. We did remove the posterior osteophytes. There were large posterior osteophytes. Attention drawn the patella. The patella was cleaned of all soft tissue. Patella thickness measured 23 mm in thickness was cut down about 14. We sized to a size 31 patella. The lug holes were drilled for a 31 patella. Lateral osteophytes moved. Patella button was placed. Knee was taken through range of motion and the patella tracked nicely with no thumbs test. Attention drawn to place the permanent components. All trial components removed. Bone plug was placed into this femoral limb of blood loss. A double batch of Palacos G cement was mixed. I did add an additional gram of vancomycin due to her multiple additional comorbidities including morbid obesity and diabetes. A Biomet Vanguard size 67.5 right posterior device femoral component, size 71 tibial tray with a 80 mm x 12 mm offset extension with a small cruciate wing, a 10 mm posterior Barse polyethylene insert, and a 31 x 8 all poly patella was then cemented in place. The Into full extension till cement hardened. Final symmetric was then performed. The pericapsular tissues were injected with a total of 100 cc of Ortho mix. The patient did receive 1 g of tranexamic acid. The tourniquet was then let down for final tourniquet time 75 minutes. Hemostasis assured with electrocautery. Extensor mechanism then closed with combination 1 PDS suture Vicryl suture in a ralgiz-fr-dmbny fashion. The extensor Macrotec found be intact with subcutaneous tissue then closed with 2 Dexon suture in a buried interrupted fashion skin was closed skin sandeep. Leg was then cleaned and dried and sterile dressing with Xeroform, 4 fourths, sterile cast padding, River bandage were applied. Patient then transferred to the recovery in stable condition. Patient tolerated procedure well and there are no complications. Ailyn Bronson, physician customer marketing assistant, was present for the entire procedure. His assistance was required for proper patient positioning, prepping and draping, surgical exposure, retraction, performed the technical details of the operation, placement of implants, closure of the incision site and placement of sterile bandage. I attest to the content of the Intraoperative Record and any orders documented therein. Any exceptions are noted below.
[2024-06-28] MEDS: fentaNYL citrate PF 100 MCG/2 ML VIAL IV PRN (09:29)
[2024-06-28] MEDS ORDERED: GUSELKUMAB 100 MG/ML SQ SCH (09:44)
[2024-06-28] MEDS ORDERED: hydrOXYzine HCl 25 MG TAB PO PRN (09:44)
[2024-06-28] MEDS ORDERED: CARBOHYDRATES FOR HYPOGLYCEMIA PO PRN (09:44)
[2024-06-28] MEDS ORDERED: MAGNESIUM HYDROXIDE SUSP 30 ML UDC PO PRN (09:44)
[2024-06-28] MEDS ORDERED: METOCLOPRAMIDE HCL INJ 5 MG/ML 2 ML VIAL IV PRN (09:44)
[2024-06-28] MEDS ORDERED: PHARMACY GLYCEMIC MGMT CONSULT PRN (09:44)
[2024-06-28] MEDS ORDERED: DEXTROSE 50% 50 ML SYRINGE IV PRN (09:44)
[2024-06-28] MEDS ORDERED: GLUCAGON FOR INJ 1 MG VIAL SQ PRN (09:44)
[2024-06-28] MEDS ORDERED: GLUCOSE 10 TAB/TUBE PO PRN (09:44)
[2024-06-28] MEDS ORDERED: ONDANSETRON 4 MG OD TAB PO PRN (09:44)
[2024-06-28] MEDS ORDERED: ALBUTEROL HFA 8 GM INHALER INH PRN (09:44)
[2024-06-28] MEDS ORDERED: GLUCOSE 40% GEL 15 GM TUBE PO PRN (09:44)
[2024-06-28] MEDS ORDERED: bisacodyL 10 MG SUPP PR PRN (09:44)
[2024-06-28] MEDS ORDERED: NON-FORMULARY MEDICATION (Semaglutide [Ozempic] 0.25 mg or 0.5 mg (2 mg/3 mL) Pen Injector SQ SCH (09:44)
[2024-06-28] MEDS ORDERED: ALUMINUM/MAGNESIUM SUSP 30 ML UDC PO PRN (09:44)
[2024-06-28] MEDS ORDERED: FLUTICASONE PROPIONATE NA SPR 16 GM BTL NAE PRN (09:44)
[2024-06-28] MEDS ORDERED: NALOXONE HCL 0.4 MG/1 ML VIAL/CARP IV PRN (09:44)
[2024-06-28] MEDS ORDERED: diphenhydrAMINE Capsule 25 MG CAP PO PRN (09:44)
--- NOTE | 2024-06-28 09:54 | XRay Report ---
TWO VIEWS RIGHT KNEE CLINICAL HISTORY: Postoperative examination. FINDINGS: AP and crosstable lateral portable views of the right knee are obtained. A right knee arthr oplasty is in near anatomic alignment. There is a long tibial stem. There has been undersurface remod eling of the patella. No acute fracture is seen. There are expected postoperative changes around the knee including skin clips, soft tissue edema, and subcutaneous gas. IMPRESSION: Expected postoperative changes status post right knee arthroplasty. No acute fracture is seen. ACT 112: Negative or not required by law. Electronically signed by: Lázaro Marquez M.D. 06/28/2024 9:53 AM
[2024-06-28] MEDS ORDERED: FLUTICASONE/VILANTEROL 100/25MCG 14 PUFFS/INHALER INH PRN (10:31)
--- NOTE | 2024-06-28 10:42 | Anesthesiology Progress Note ---
Date of Service June 28, 2024 Anesthesia Post Procedure Vital Signs Vital Signs: Temp Pulse Resp BP Pulse Ox O2 Del Method 06/28/24 09:45 36.9 C 74 16 137/63 92 Room Air 06/28/24 09:35 74 15 156/77 H 95 Room Air 06/28/24 09:25 76 20 136/59 L 97 Room Air 06/28/24 09:17 37.1 C 83 15 129/62 94 Room Air 06/28/24 05:55 37 C 80 20 130/64 94 Room Air Pain Intensity Right Knee: Pain Intensity: 2 Transfer of Care Handoff Completed per policy Notes Mental Status: alert / awake / arousable Patient Amnestic to Procedure: Yes Nausea / Vomiting: adequately controlled Pain: adequately controlled Airway Patency, RR, SpO2: stable & adequate BP & HR: stable & adequate Hydration State: stable & adequate Neuraxial Anesthesia: was administered and sensory block is resolving Anesthetic Complications: no major complications apparent and Pt Satisfied with anesthetic care
[2024-06-28] MEDS: KETOROLAC 30 MG/ML VIAL IV SCH (11:04)
[2024-06-28] MEDS: SODIUM CHLORIDE 0.9% 1,000 ML IV SCH (11:08)
--- NOTE | 2024-06-28 11:47 | Pharmacy Report ---
Pharmacy Glycemic Short Note 2 - Date of Service June 28, 2024 - Glycemic Short BSG Results (Last 24 hours): 06/28/24 06/28/24 06/28/24 05:44 09:21 11:31 POC Glucose 125 H 155 H 178 H OUTPATIENT ANTIDIABETIC REGIMEN: * metformin 500 mg bid, ozempic weekly ASSESSMENT: * 53 year old s/p surgery, POD 0 - Pharmacy consulted for glycemic management. Steroids given intraoperatively, therefore anticipate steroid induced hyperglycemia. Will give dose of basal insulin 15 units x 1 now and add on novolog with weight based stress 2/3. Will consider overnight checks if BSGs remain elevated. PLAN FOR INPATIENT GLYCEMIC CONTROL: * Hold outpatient oral diabetes medications * Basal insulin * Lantus 15 units x 1 * Lantus 0-10 units HS * Bolus insulin * NovoLog per scale ACHS or Q6hrs while NPO * Goal Range: Low 110 mg/dL - High 140 mg/dL * Correction Factor: 20 mg/dL/unit * Nutritional / Prandial insulin per carb ratio of 1 unit per 6 grams CHO consumed
[2024-06-28] MEDS: LANTUS PER UNIT CHARGE SC ONE (12:25)
[2024-06-28] MEDS: INSULIN ASPART PER UNIT CHARGE SC SCH ×2 (12:25→23:52)
[2024-06-28] MEDS: TRANEXAMIC ACID / 0.7% NACL 1,000 MG/100 ML BAG IV SCH (16:23)
[2024-06-28] MEDS: Scopolamine CHECK PATCH PLACEMENT SCH (16:29)
[2024-06-28] MEDS: ceFAZolin 2000MG 2,000 MG/15 ML SYR IV SCH (17:44)
[2024-06-28] MEDS: ASCORBIC ACID 500 MG TAB PO SCH (17:45)
[2024-06-28] MEDS: DOCUSATE SODIUM 100 MG CAP PO SCH (21:08)
[2024-06-28] MEDS: CETIRIZINE HCL 10 MG TABLET PO SCH (21:08)
[2024-06-28] MEDS: ASPIRIN 81 MG ECTAB PO SCH (21:08)
[2024-06-28] MEDS: FAMOTIDINE 40 MG TABLET PO SCH (21:08)
[2024-06-28] MEDS: SENNA 8.6 MG TAB PO SCH ×2 (21:13)
[2024-06-28] MEDS: LANTUS PER UNIT CHARGE SC SCH (21:14)
[2024-06-28] MEDS: HYDROmorphone INJ 0.5 MG/0.5 ML SYR IV PRN (23:12)
[2024-06-29] MEDS: oxyCODONE HCL IR 5 MG TAB (IMMEDIATE RELEASE) PO PRN (02:38)
[2024-06-29 08:01] LABS: Hematocrit (blood only) 32.3 % (37.0-47.0); Hemoglobin 10.3 g/dl (12.0-16.0); Mean Corpuscular Hemoglobin 27.3 pg (25.0-34.0); Mean Corpuscular Hgb Conc 31.9 g/dL (32.0-36.0); Mean Corpuscular Volume 85.7 fL (80.0-100.0); Mean Platelet Volume 10.7 fL (9.4-12.4); Platelet Count 347 K/uL (130-400); RDW Standard Deviation 46.6 fL (36.4-46.3); Red Blood Count 3.77 M/uL (4.20-5.40); White Blood Count 13.45 K/ul (4.8-10.8)
[2024-06-29 08:17] LABS: BUN Creatinine Ratio 16.8 (10-20); Calcium 8.5 mg/dl (8.6-10.3); Creatinine Clr Calc Pharmacy 97.3 ml/min; Est GFR (African American) 67.7 ml/min; Est GFR (Non-African American) 58.4 ml/min; Potassium 3.6 mmol/L (3.5-5.1)
[2024-06-29] MEDS: NICOTINE 14 MG/24 HR PATCH TD SCH (09:02)
[2024-06-29] MEDS: dexAMETHasone 10 MG in SYRINGE 0 ML IV SCH (09:03)
[2024-06-29] MEDS: amLODIPine BESYLATE 5 MG TAB PO SCH (09:04)
[2024-06-29] MEDS: allopurinoL 300 MG TAB PO SCH (09:04)
[2024-06-29] MEDS: buPROPion SR 150 MG TABCR PO SCH (09:04)
[2024-06-29] MEDS: hydroCHLOROthiazide 25 MG TAB PO SCH (09:05)
[2024-06-29] MEDS: MULTIVITAMIN TAB PO SCH (09:05)
--- NOTE | 2024-06-29 12:20 | Orthopedic Progress Note ---
Date of Service June 29, 2024 Assessment & Plan (1) Status post right knee replacement: Plan: 53-year-old female postop day 1 from a right knee replacement doing pretty well. Pain is controlled. She is neurologically intact. She did well in therapy. Plan: 1. DVT prophylaxis including Thiede teds, SCDs, aspirin twice a day. 2. PT/OT. Weight-bear as tolerated. Right total knee protocol. 3. Pain control doing well with current pain regimen. 4. Disposition plan to discharge to home with some home health later today. (2) Status post left knee replacement: Admission and Anticipated Discharge Date Admission Date: June 28, 2024 Subjective 53-year-old female postop day 1 from right knee replacement. She is doing pretty well. Therapy went well. She been up and walking around. Pains controlled. No chest pain or shortness of breath. She is hoping to go home. Physical Exam Physical Exam: Physical exam shows a pleasant obese female. She is walking quite well with the use of a walker. Examination of the right knee reveals dressing clean dry and intact. She can do a straight leg raise. She is neurologically intact. Respiratory: normal respiratory effort, lungs clear to auscultation Cardiovascular: RRR, no murmur, no edema Gastrointestinal (Abdomen): normal bowel sounds, soft, nontender, no hepatosplenomegaly Results & Data Vital Signs (Past 12 Hours) Vital Signs Temp Pulse Pulse Resp BP Pulse Ox O2 Del Method 06/29/24 08:02 36.5 C 64 16 115/77 96 Room Air 06/29/24 03:10 36.5 C 75 20 163/72 H 97 Room Air Laboratory Results Hemoglobin is 10.3. Hematocrit is 32.3. Electrolytes are stable.
--- NOTE | 2024-07-01 07:51 | Discharge Summary ---
Date of Service July 01, 2024 Discharge Data Procedures Performed Operation Date: 06/28/24 07:00 Actual Procedures p Right Total Knee Arthroplasty(Right) - Antony Walton MD Hospital Course (1) Status post right knee replacement: This is a 53 year old patient admitted on 06/28/24 and underwent total knee arthroplasty. She tolerated the procedure well and there were no complications. Transferred to the PACU post op and later to the orthopedic floor for further care. She was given ancef for antibiotic prophylaxis. She was also given JULIO CÉSAR stockings, SCDs, and aspirin for DVT prophylaxis. Hemoglobin, hematocrit, and vital signs were monitored during her hospital stay and remained stable. Did not require any blood transfusions. There were no complications during her hospital stay. By post op day #1 the patient was tolerating a diabetic diet, pain was reasonably controlled with oral pain medicine, and she was participating in physical therapy. On post op day #1 the patient was discharged home and set up with home health care. She was given printed discharge instructions including prescriptions for extra strength tylenol, aspirin, cefadroxil, ketorolac, zofran, oxycodone, and senokot. Continue physical therapy, weight bearing as tolerated. Continue JULIO CÉSAR stockings. Follow up approximately 2 weeks post op or sooner if there are problems or concerns. Coding Level of Care Code None Diagnoses Status post right knee replacement Z96.651
== END 2024-06-29 12:22 | disposition home health service (06) ==
LOC: 3E 05:17 → ASU 05:17
DX: Z88.1 Allergy status to other antibiotic agents; I10 Essential (primary) hypertension; Z79.899 Other long term (current) drug therapy; Z88.8 Allergy status to other drugs, medicaments and biological substances; K58.9 Irritable bowel syndrome, unspecified; M17.11 Unilateral primary osteoarthritis, right knee; Z88.0 Allergy status to penicillin; Z79.84 Long term (current) use of oral hypoglycemic drugs; G47.33 Obstructive sleep apnea (adult) (pediatric); J45.909 Unspecified asthma, uncomplicated; E11.9 Type 2 diabetes mellitus without complications; Z91.040 Latex allergy status; Z79.85 Long-term (current) use of injectable non-insulin antidiabetic drugs; Z88.2 Allergy status to sulfonamides; E66.01 Morbid (severe) obesity due to excess calories; F17.210 Nicotine dependence, cigarettes, uncomplicated; Z68.43 Body mass index [BMI] 50.0-59.9, adult